=== PATIENT | female | born 1930 | race Caucasian/White ===

== ENCOUNTER 2018-10-15 01:56 | Inpatient (IN) | payer MEDICARE, BC ==
[2018-10-15] MEDS ORDERED: IPRATROPIUM 0.5 MG/2.5 ML NEBU INHALATION STA (02:28)
[2018-10-15] MEDS ORDERED: ALBUTEROL NEBULIZED (CONC) 5 MG, SODIUM CHLORIDE 0.9% NEBULIZ 3 ML INHALATION STA ×2 (02:28)
[2018-10-15] MEDS ORDERED: methylPREDNISolone SOD SUCCI 125 MG/2 ML VIAL IV STA (02:28)
--- NOTE | 2018-10-15 02:31 | ED ---
SOB HPI - General Source: patient, family Mode of arrival: wheelchair Limitations: no limitations <Ama Combs - Last Filed: 10/15/18 02:38> <Miriam Ureña - Last Filed: 10/15/18 05:47> - General Chief Complaint: Shortness of Breath Stated Complaint: cough, wheezing Time Seen by Provider: 10/15/18 02:06 - History of Present Illness Initial Comments: 88-year-old female patient presents to the emergency department this evening for evaluation of shortness of breath, wheezing, and cough. Patient does have history of COPD. She does nebulizer treatments at home and occasionally wears oxygen. Daughter reports that she woke from sleep this evening and seemed to be somewhat disoriented. States that she checked her oxygen saturation at home and was round 88% on room air. States that she usually runs between 95 and 96%. Patient states that she has had a cough, states she does have sputum production. She denies any fever or chills. States that she does feel generally weak. Denies any chest pain, abdominal pain, nausea, or vomiting. Denies any dizziness. Patient denies any recent rash, diarrhea, constipation, back pain, numbness, tingling, dizziness, weakness, hematuria, dysuria, urinary urgency, urinary frequency, headache, visual changes, or any other complaints. (Ama Combs) - Related Data Home Medications Medication Instructions Recorded Confirmed Aspirin [Adult Low Dose Aspirin EC] 81 mg PO DAILY 10/15/18 10/15/18 Cholecalciferol [Vitamin D3 (25 1,000 unit PO DAILY 10/15/18 10/15/18 Mcg = 1000 Iu)] Cyanocobalamin (Vitamin B-12) 1,000 mcg PO DAILY 10/15/18 10/15/18 [Vitamin B-12] FLUoxetine HCL [PROzac] 20 mg PO DAILY 10/15/18 10/15/18 Fluticasone/Salmeterol [Advair 1 inhalation PO BID 10/15/18 10/15/18 250-50 Diskus] Folic Acid 1 mg PO DAILY 10/15/18 10/15/18 Glucosamine/Chondr Bonilla A Sod [Osteo 1 each PO DAILY 10/15/18 10/15/18 Bi-Flex Caplet] Levothyroxine Sodium 100 mcg PO DAILY 10/15/18 10/15/18 Multivit with Calcium,Iron,Min 1 each PO DAILY 10/15/18 10/15/18 [Women's Multivitamin] Omeprazole 40 mg PO DAILY 10/15/18 10/15/18 Simvastatin 40 mg PO DAILY 10/15/18 10/15/18 predniSONE 7.5 mg PO DAILY 10/15/18 10/15/18 Allergies Allergy/AdvReac Type Severity Reaction Status Date / Time naproxen [From Naprosyn] AdvReac Rash/Hives Verified 10/15/18 02:04 Review of Systems ROS Other: All systems not noted in ROS Statement are negative. <Ama Combs - Last Filed: 10/15/18 02:38> ROS Other: All systems not noted in ROS Statement are negative. <Miriam Ureña - Last Filed: 10/15/18 05:47> ROS Statement: Those systems with pertinent positive or pertinent negative responses have been documented in the HPI. 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 Vital signs upon presentation are temperature 99.0F, pulse 118, respirations 20, blood pressure 97/56, pulse ox 90% on room air.) Eye exam: Present: normal appearance, PERRL, EOMI. Absent: scleral icterus, conjunctival injection, periorbital swelling ENT exam: Present: normal exam, normal oropharynx, mucous membranes moist Respiratory exam: Present: wheezes (Expiratory wheezing noted in the posterior lung mustafa), other (Tachypnea). Absent: normal lung sounds bilaterally, respiratory distress, rales, rhonchi, stridor Cardiovascular Exam: Present: normal rhythm, tachycardia, normal heart sounds. Absent: systolic murmur, diastolic murmur, rubs, gallop, clicks GI/Abdominal exam: Present: soft, normal bowel sounds. Absent: distended, tenderness, guarding, rebound, rigid Neurological exam: Present: alert, oriented X3, CN II-XII intact Psychiatric exam: Present: normal affect, normal mood Skin exam: Present: warm, dry, intact, normal color. Absent: rash <Ama Combs - Last Filed: 10/15/18 02:38> Course Vital Signs 10/15/18 10/15/18 10/15/18 01:57 02:16 02:30 Temperature 98.5 F Pulse Rate 118 H 92 Respiratory 20 18 Rate Blood Pressure 97/56 122/65 O2 Sat by Pulse 90 L 88 L 96 Oximetry 10/15/18 10/15/18 10/15/18 03:00 03:05 03:09 Temperature 99.0 F Pulse Rate 86 94 Respiratory 19 Rate Blood Pressure 122/60 O2 Sat by Pulse 96 Oximetry 10/15/18 10/15/18 10/15/18 03:14 03:30 04:00 Temperature Pulse Rate 80 84 90 Respiratory 20 20 Rate Blood Pressure 128/54 O2 Sat by Pulse 99 96 Oximetry 10/15/18 10/15/18 04:30 05:00 Temperature Pulse Rate 87 85 Respiratory 24 20 Rate Blood Pressure 131/58 139/52 O2 Sat by Pulse 98 96 Oximetry Medical Decision Making - EKG Data -: EKG Interpreted by Me <Ama Cobms - Last Filed: 10/15/18 02:38> - Lab Data Result diagrams: 10/15/18 03:00 10/15/18 03:00 <Miriam Ureña - Last Filed: 10/15/18 05:47> - Medical Decision Making Patient care was signed out to me by Ama Combs DIRECTOR [employer] - Patient is an 88-year-old female who presented for difficulty breathing she was noted to be wheezing and received albuterol and steroids. At the time of sign out labs were pending, as resulted with chronic anemia. Family at bedside reported the patien t has chronic anemia her baseline hemoglobin he believes is around 10. The report she's been on steroids due to her anemia in the past. And today with a hemoglobin of 8.8. Patient resting comfortably on supplement oxygen via nasal cannula. At this time I feel the patient warrants admission to the hospital for further treatment of COPD exacerbation. Patient family are agreeable with this. Admission orders were placed. (Miriam Ureña) - Lab Data Lab Results 10/15/18 10/15/18 10/15/18 Range/Units 03:00 03:00 03:00 WBC 6.4 (3.8-10.6) k/uL RBC 3.44 L (3.80-5.40) m/uL Hgb 8.8 L (11.4-16.0) gm/dL Hct 29.8 L (34.0-46.0) % MCV 86.6 (80.0-100.0) fL MCH 25.5 (25.0-35.0) pg MCHC 29.5 L (31.0-37.0) g/dL RDW 16.0 H (11.5-15.5) % Plt Count 271 (150-450) k/uL Neutrophils % 56 % Lymphocytes % 26 % Monocytes % 10 % Eosinophils % 3 % Basophils % 1 % Neutrophils # 3.6 (1.3-7.7) k/uL Lymphocytes # 1.7 (1.0-4.8) k/uL Monocytes # 0.6 (0-1.0) k/uL Eosinophils # 0.2 (0-0.7) k/uL Basophils # 0.1 (0-0.2) k/uL Hypochromasia Moderate Sodium 136 L (137-145) mmol/L Potassium 4.1 (3.5-5.1) mmol/L Chloride 103 (98-107) mmol/L Carbon Dioxide 28 (22-30) mmol/L Anion Gap 5 mmol/L BUN 19 H (7-17) mg/dL Creatinine 0.79 (0.52-1.04) mg/dL Est GFR (CKD-EPI)AfAm 77 (>60 ml/min/1.73 sqM) Est GFR (CKD-EPI)NonAf 67 (>60 ml/min/1.73 sqM) Glucose 86 (74-99) mg/dL Plasma Lactic Acid Jamie 1.4 (0.7-2.0) mmol/L Calcium 8.4 (8.4-10.2) mg/dL Total Bilirubin 0.3 (0.2-1.3) mg/dL AST 35 (14-36) U/L ALT 8 L (9-52) U/L Alkaline Phosphatase 48 (38-126) U/L Total Protein 5.9 L (6.3-8.2) g/dL Albumin 3.1 L (3.5-5.0) g/dL Urine Color Urine Appearance (Clear) Urine pH (5.0-8.0) Ur Specific [place] (1.001-1.035) Urine Protein (Negative) Urine Glucose (UA) (Negative) Urine Ketones (Negative) Urine Blood (Negative) Urine Nitrite (Negative) Urine Bilirubin (Negative) Urine Urobilinogen (<2.0) mg/dL Ur Leukocyte Esterase (Negative) 10/15/18 Range/Units 04:00 WBC (3.8-10.6) k/uL RBC (3.80-5.40) m/uL Hgb (11.4-16.0) gm/dL Hct (34.0-46.0) % MCV (80.0-100.0) fL MCH (25.0-35.0) pg MCHC (31.0-37.0) g/dL RDW (11.5-15.5) % Plt Count (150-450) k/uL Neutrophils % % Lymphocytes % % Monocytes % % Eosinophils % % Basophils % % Neutrophils # (1.3-7.7) k/uL Lymphocytes # (1.0-4.8) k/uL Monocytes # (0-1.0) k/uL Eosinophils # (0-0.7) k/uL Basophils # (0-0.2) k/uL Hypochromasia Sodium (137-145) mmol/L Potassium (3.5-5.1) mmol/L Chloride (98-107) mmol/L Carbon Dioxide (22-30) mmol/L Anion Gap mmol/L BUN (7-17) mg/dL Creatinine (0.52-1.04) mg/dL Est GFR (CKD-EPI)AfAm (>60 ml/min/1.73 sqM) Est GFR (CKD-EPI)NonAf (>60 ml/min/1.73 sqM) Glucose (74-99) mg/dL Plasma Lactic Acid Jamie (0.7-2.0) mmol/L Calcium (8.4-10.2) mg/dL Total Bilirubin (0.2-1.3) mg/dL AST (14-36) U/L ALT (9-52) U/L Alkaline Phosphatase (38-126) U/L Total Protein (6.3-8.2) g/dL Albumin (3.5-5.0) g/dL Urine Color Yellow Urine Appearance Clear (Clear) Urine pH 6.5 (5.0-8.0) Ur Specific [place] 1.012 (1.001-1.035) Urine Protein Negative (Negative) Urine Glucose (UA) Negative (Negative) Urine Ketones Negative (Negative) Urine Blood Negative (Negative) Urine Nitrite Negative (Negative) Urine Bilirubin Negative (Negative) Urine Urobilinogen <2.0 (<2.0) mg/dL Ur Leukocyte Esterase Negative (Negative) - EKG Data EKG Comments: EKG obtained at 0212 shows sinus tachycardia with occasional PVCs. Ventricular rate is 106, DE interval 124, QRS duration 80, QT 346, QTc 459. No evidence of ST elevation or depression. (Ama Combs) Disposition <Ama Combs - Last Filed: 10/15/18 02:38> <Miriam Ureña - Last Filed: 10/15/18 05:47> Clinical Impression: COPD exacerbation, Chronic anemia Disposition: ADMITTED IP TO THIS HOSP Condition: Stable Referrals: None,Stated [Primary Care Provider] - 1-2 days
--- NOTE | 2018-10-15 03:04 | XR ---
EXAM: XR Chest, 2 Views CLINICAL HISTORY: ITS.REASON XR Reason: Fever TECHNIQUE: Frontal and lateral views of the chest. COMPARISON: No relevant prior studies available. FINDINGS: Lungs: Unremarkable. No consolidation. Pleural space: Unremarkable. No pneumothorax. Heart: No suspicious enlargement. Mediastinum: Unremarkable. Bones/joints: No acute fracture. IMPRESSION: No acute findings.
[2018-10-15] MEDS: SODIUM CHLORIDE 0.9% 500 ML 500 ML IV SCH (03:12)
[2018-10-15 03:47] LABS: Basophils # (A) 0.1 k/uL (0-0.2); Basophils % (A) 1 %; Eosinophils # (A) 0.2 k/uL (0-0.7); Eosinophils % (A) 3 %; HCT 29.8 % (34.0-46.0); HGB 8.8 gm/dL (11.4-16.0); Hypochromasia Moderate; Lymphocytes # (A) 1.7 k/uL (1.0-4.8); Lymphocytes % (A) 26 %; MCH 25.5 pg (25.0-35.0); MCHC 29.5 g/dL (31.0-37.0); MCV 86.6 fL (80.0-100.0); Mean Platelet Volume 6.8; Monocytes # (A) 0.6 k/uL (0-1.0); Monocytes % (A) 10 %; Neutrophils # (A) 3.6 k/uL (1.3-7.7); Neutrophils % (A) 56 %; Platelet Count 271 k/uL (150-450); RBC 3.44 m/uL (3.80-5.40); WBC 6.4 k/uL (3.8-10.6)
[2018-10-15 03:55] LABS: Albumin 3.1 g/dL (3.5-5.0); Calcium 8.4 mg/dL (8.4-10.2); Total Bilirubin 0.3 mg/dL (0.2-1.3); Total Protein 5.9 g/dL (6.3-8.2)
[2018-10-15 04:02] LABS: INR 0.9 (<1.2); Prothrombin Time 9.8 sec (9.0-12.0)
[2018-10-15 04:11] LABS: Appearance,Urine Clear (Clear); Bilirubin,Urine Negative (Negative); Blood,Urine Negative (Negative); Color,Urine Yellow; Glucose,Urine (UA) Negative (Negative); Ketones,Urine Negative (Negative); Leukocyte Esterase,Urine Negative (Negative); Nitrite,Urine Negative (Negative); PH, Urine 6.5 (5.0-8.0); Protein,Urine Negative (Negative); Specific Gravity,Urine 1.012 (1.001-1.035); Urobilinogen,Urine <2.0 mg/dL (<2.0)
[2018-10-15 04:22] LABS: Potassium 4.1 mmol/L (3.5-5.1)
[2018-10-15 06:57] LABS: Partial Thromboplastin Time 20.9 sec (22.0-30.0)
[2018-10-15] MEDS: predniSONE 20 MG TAB PO SCH (11:24)
[2018-10-15] MEDS: IPRATROPIUM-ALBUTEROL 3 ML NEB INHALATION PRN (11:40)
--- NOTE | 2018-10-15 13:29 | P.HPIM ---
History of Present Illness A 8-year-old pleasant female came in with complains of shortness of breath and wheezing cough without any significant sputum production patient chest x-ray did not show pneumonia patient doesn't use any oxygen at home. Patient is quite weak and will need physical therapy patient was started on systemic steroids in the form of oral prednisone and the inhalational steroids. Patient was started on GI prophylaxis and DVT prophylaxis. is wheezing on exam doesn't have hearing problems because of which it's hard to obtain history from her. Patient also denies any fever chills Review of Systems REVIEW OF SYSTEMS: CONSTITUTIONAL: No fever, no malaise, no fatigue. HEENT: No recent visual problems or hearing problems. Denied any sore throat. CARDIOVASCULAR: No chest pain, orthopnea, PND, no palpitations, no syncope. PULMONARY: no hemoptysis. GASTROINTESTINAL: No diarrhea, no nausea, no vomiting, no abdominal pain. NEUROLOGICAL: No headaches, no weakness, no numbness. HEMATOLOGICAL: Denies any bleeding or petechiae. GENITOURINARY: Denies any burning micturition, frequency, or urgency. MUSCULOSKELETAL/RHEUMATOLOGICAL: Denies any joint pain, swelling, or any muscle pain. ENDOCRINE: Denies any polyuria or polydipsia. The rest of the 14-point review of systems is negative. 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, Past Psychological History: No Psychological Hx Reported Smoking Status: Former smoker Past Alcohol Use History: None Reported Past Drug Use History: None Reported Medications and Allergies Home Medications Medication Instructions Recorded Confirmed Type Aspirin [Adult Low Dose Aspirin EC] 81 mg PO DAILY 10/15/18 10/15/18 History Cholecalciferol [Vitamin D3 (25 1,000 unit PO DAILY 10/15/18 10/15/18 History Mcg = 1000 Iu)] Cyanocobalamin (Vitamin B-12) 1,000 mcg PO DAILY 10/15/18 10/15/18 History [Vitamin B-12] FLUoxetine HCL [PROzac] 20 mg PO DAILY 10/15/18 10/15/18 History Fluticasone/Salmeterol [Advair 1 inhalation PO BID 10/15/18 10/15/18 History 250-50 Diskus] Folic Acid 1 mg PO DAILY 10/15/18 10/15/18 History Glucosamine/Chondr Bonilla A Sod [Osteo 1 each PO DAILY 10/15/18 10/15/18 History Bi-Flex Caplet] Levothyroxine Sodium 100 mcg PO DAILY 10/15/18 10/15/18 History Multivit with Calcium,Iron,Min 1 each PO DAILY 10/15/18 10/15/18 History [Women's Multivitamin] Omeprazole 40 mg PO DAILY 10/15/18 10/15/18 History Simvastatin 40 mg PO DAILY 10/15/18 10/15/18 History Vit C/E/Zn/Coppr/Lutein/Zeaxan 1 cap PO BID 10/15/18 10/15/18 History [Preservision Areds 2 Softgel] predniSONE 7.5 mg PO DAILY 10/15/18 10/15/18 History Allergies Allergy/AdvReac Type Severity Reaction Status Date / Time naproxen [From Naprosyn] AdvReac Rash/Hives Verified 10/15/18 02:04 Physical Exam Vitals: Vital Signs Temp Pulse Pulse Resp BP BP Pulse Ox 10/15/18 11:49 88 10/15/18 11:40 92 10/15/18 11:28 24 10/15/18 06:30 97.8 F 95 92 18 134/64 132/70 95 10/15/18 06:24 98.6 F 10/15/18 06:00 92 17 126/80 94 L 10/15/18 05:30 87 22 137/52 94 L 10/15/18 05:00 85 20 139/52 96 10/15/18 04:30 87 24 131/58 98 10/15/18 04:00 90 20 128/54 96 10/15/18 03:30 84 20 99 10/15/18 03:14 80 10/15/18 03:09 99.0 F 10/15/18 03:05 94 10/15/18 03:00 86 19 122/60 96 10/15/18 02:30 92 18 122/65 96 10/15/18 02:16 88 L 10/15/18 01:57 98.5 F 118 H 20 97/56 90 L Intake and Output 10/14/18 10/15/18 10/15/18 22:59 06:59 14:59 Other: Voiding Method Toilet Diaper Incontinent # Voids 1 Weight 76.204 kg PHYSICAL EXAMINATION: GENERAL: The patient is alert and oriented x3, not in any acute distress. And built cachectic female HEENT pupils reacting to light. EOMI. No scleral icterus. No conjunctival pallor. Normocephalic, atraumatic. No pharyngeal erythema. No thyromegaly. CARDIOVASCULAR: S1 and S2 present. No murmurs, rubs, or gallops. PULMONARY: Decreased air entry with a expiratory wheezing on exam ABDOMEN: Soft, nontender, nondistended, normoactive bowel sounds. No palpable organomegaly. MUSCULOSKELETAL: No joint swelling or deformity. EXTREMITIES: No cyanosis, clubbing, or pedal edema. NEUROLOGICAL: Gross neurological examination did not reveal any focal deficits. SKIN: No rashes. Results CBC & Chem 7: 10/15/18 03:00 10/15/18 03:00 Labs: Abnormal Lab Results - Last 24 Hours (Table) 10/15/18 10/15/18 10/15/18 Range/Units 03:00 03:00 03:00 RBC 3.44 L (3.80-5.40) m/uL Hgb 8.8 L (11.4-16.0) gm/dL Hct 29.8 L (34.0-46.0) % MCHC 29.5 L (31.0-37.0) g/dL RDW 16.0 H (11.5-15.5) % APTT 20.9 L (22.0-30.0) sec Sodium 136 L (137-145) mmol/L BUN 19 H (7-17) mg/dL ALT 8 L (9-52) U/L Total Protein 5.9 L (6.3-8.2) g/dL Albumin 3.1 L (3.5-5.0) g/dL Microbiology - Last 24 Hours (Table) 10/15/18 04:00 Urine Culture - Preliminary Urine,Voided Thrombosis Risk Factor Assmnt - Choose All That Apply Each Factor Represents 1 point: Abnormal pulmonary function (COPD) Each Risk Factor Represents 3 Points: Age 75 years or older Thrombosis Risk Factor Assessment Total Risk Factor Score: 4 Thrombosis Risk Factor Assessment Level: Moderate Risk Assessment and Plan Plan: COPD exacerbation: Patient will need to be in patient continues systems steroids inhalational treatments. Patient quit smoking many years ago - generalized weakness and deconditioning for which we'll obtain PT and OT consultation -Hyperlipidemia -Hypothyroidism Patient will need pharmacologic GI and DVT prophylaxis For above-mentioned chronic medical problems emphysema and appropriate home medications.
[2018-10-15] MEDS: IPRATROPIUM-ALBUTEROL 3 ML NEB INHALATION SCH ×2 (15:39→20:37)
--- NOTE | 2018-10-15 16:05 | P.CNPUL ---
History of Present Illness Consult date: 10/15/18 Reason for consult: dyspnea, cough, COPD Chief complaint: Shortness of breath History of present illness: 88-year-old female who was seen evaluated examined observation, patient was admitted with the increased shortness of breath and low oxygen saturation she presented into emergency department with cough wheezing and low oxygen saturation are 88%, Patient does have history of COPD. She does nebulizer treatments at home and occasionally wears oxygen. Daughter reports that she woke from sleep this evening and seemed to be somewhat disoriented. States that she checked her oxygen saturation at home and was round 88% on room air. States that she usually runs between 95 and 96%. Patient states that she has had a cough, states she does have sputum production. She denies any fever or chills. States that she does feel generally weak. Denies any chest pain, abdominal pain, nausea, or vomiting. Denies any dizziness. Patient denies any recent rash, diarrhea, constipation, back pain, numbness, tingling, dizziness, weakness, hematuria, dysuria, urinary urgency, urinary frequency, headache, visual changes, or any other complaints. 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, Past Psychological History: No Psychological Hx Reported Smoking Status: Former smoker Past Alcohol Use History: None Reported Past Drug Use History: None Reported Medications and Allergies Home Medications Medication Instructions Recorded Confirmed Type Aspirin [Adult Low Dose Aspirin EC] 81 mg PO DAILY 10/15/18 10/15/18 History Cholecalciferol [Vitamin D3 (25 1,000 unit PO DAILY 10/15/18 10/15/18 History Mcg = 1000 Iu)] Cyanocobalamin (Vitamin B-12) 1,000 mcg PO DAILY 10/15/18 10/15/18 History [Vitamin B-12] FLUoxetine HCL [PROzac] 20 mg PO DAILY 10/15/18 10/15/18 History Fluticasone/Salmeterol [Advair 1 inhalation PO BID 10/15/18 10/15/18 History 250-50 Diskus] Folic Acid 1 mg PO DAILY 10/15/18 10/15/18 History Glucosamine/Chondr Bonilla A Sod [Osteo 1 each PO DAILY 10/15/18 10/15/18 History Bi-Flex Caplet] Levothyroxine Sodium 100 mcg PO DAILY 10/15/18 10/15/18 History Multivit with Calcium,Iron,Min 1 each PO DAILY 10/15/18 10/15/18 History [Women's Multivitamin] Omeprazole 40 mg PO DAILY 10/15/18 10/15/18 History Simvastatin 40 mg PO DAILY 10/15/18 10/15/18 History Vit C/E/Zn/Coppr/Lutein/Zeaxan 1 cap PO BID 10/15/18 10/15/18 History [Preservision Areds 2 Softgel] predniSONE 7.5 mg PO DAILY 10/15/18 10/15/18 History Allergies Allergy/AdvReac Type Severity Reaction Status Date / Time naproxen [From Naprosyn] AdvReac Rash/Hives Verified 10/15/18 02:04 Physical Exam Vitals: Vital Signs Temp Pulse Pulse Resp BP BP Pulse Ox 10/15/18 15:50 85 10/15/18 15:39 89 10/15/18 11:49 88 10/15/18 11:40 92 10/15/18 11:28 24 10/15/18 06:30 97.8 F 95 92 18 134/64 132/70 95 10/15/18 06:24 98.6 F 10/15/18 06:00 92 17 126/80 94 L 10/15/18 05:30 87 22 137/52 94 L 10/15/18 05:00 85 20 139/52 96 10/15/18 04:30 87 24 131/58 98 10/15/18 04:00 90 20 128/54 96 10/15/18 03:30 84 20 99 10/15/18 03:14 80 10/15/18 03:09 99.0 F 10/15/18 03:05 94 10/15/18 03:00 86 19 122/60 96 10/15/18 02:30 92 18 122/65 96 10/15/18 02:16 88 L 10/15/18 01:57 98.5 F 118 H 20 97/56 90 L Intake and Output 10/15/18 10/15/18 10/15/18 06:59 14:59 22:59 Other: Voiding Method Toilet Diaper Incontinent # Voids 1 Weight 76.204 kg - Constitutional General appearance: average body habitus, disheveled, mild distress - EENT Eyes: EOMI, PERRLA, normal appearance ENT: normal oropharynx - Neck Neck: normal ROM Carotids: bilateral: upstroke normal Thyroid: bilateral: normal size - Respiratory Respiratory: bilateral: wheezing (During fours expiration), negative: CTA, diminished, dullness, rales, rhonchi, prolonged expiration, prolonged inspiration - Cardiovascular Rhythm: regular Heart sounds: normal: S1, S2 - Gastrointestinal General gastrointestinal: normal bowel sounds - Neurologic Neurologic: CNII-XII intact - Musculoskeletal Musculoskeletal: gait normal, generalized weakness, strength equal bilaterally - Psychiatric Psychiatric: A&O x's 3, appropriate affect, intact judgment & insight Results - Laboratory Findings CBC and BMP: 10/15/18 03:00 10/15/18 03:00 PT/INR, D-dimer PT 9.8 sec (9.0-12.0) 10/15/18 03:00 INR 0.9 (<1.2) 10/15/18 03:00 Abnormal lab findings: Abnormal Labs 10/15/18 10/15/18 10/15/18 03:00 03:00 03:00 RBC 3.44 L Hgb 8.8 L Hct 29.8 L MCHC 29.5 L RDW 16.0 H APTT 20.9 L Sodium 136 L BUN 19 H ALT 8 L Total Protein 5.9 L Albumin 3.1 L - Diagnostic Findings Chest x-ray: report reviewed, image reviewed (X-ray within normal limit) Assessment and Plan Assessment: Acute COPD exacerbation Acute hypoxic respiratory failure related to above Dyslipidemia Hypothyroidism Plan: Continue breathing treatment Bronchodilator Continue home medications X-ray reviewed Recommendations pending plan of care as per clinical response of the patient Time with Patient: Greater than 30
[2018-10-15] MEDS: HEPARIN SODIUM,PORCINE 5,000 UNIT/ML 1 ML VIAL SQ SCH (20:27)
[2018-10-15] MEDS: SYMBICORT 80-4.5 MCG INHALER INHALATION SCH (20:38)
[2018-10-16] MEDS: LEVOTHYROXINE 100 MCG TAB PO SCH (06:07)
[2018-10-16] MEDS: HEPARIN SODIUM,PORCINE 5,000 UNIT/ML 1 ML VIAL SQ SCH ×2 (08:21→20:59)
[2018-10-16] MEDS: ASPIRIN 81 MG PO SCH (08:21)
[2018-10-16] MEDS: FLUoxetine HCL 20 MG CAP PO SCH (08:21)
[2018-10-16] MEDS: predniSONE 20 MG TAB PO SCH (08:21)
[2018-10-16] MEDS: ATORVASTATIN 20 MG TAB PO SCH (08:21)
[2018-10-16] MEDS: PANTOPRAZOLE 40 MG TABLET PO SCH (08:21)
[2018-10-16] MEDS: SYMBICORT 80-4.5 MCG INHALER INHALATION SCH ×2 (08:23→19:21)
[2018-10-16] MEDS: IPRATROPIUM-ALBUTEROL 3 ML NEB INHALATION SCH ×4 (08:23→19:21)
--- NOTE | 2018-10-16 08:50 | P.PN ---
Subjective Progress Note Date: 10/16/18 Principal diagnosis: Acute COPD exacerbation, hypothyroidism, shortness of breath, cough, dyslipidemia, 10/16/2018, patient seen and evaluated examined during the rounds still have a dry cough and shortness of breath intermittent wheezing is present patient is getting breathing treatment slightly improved compared to yesterday 88-year-old female who was seen evaluated examined observation, patient was admitted with the increased shortness of breath and low oxygen saturation she presented into emergency department with cough wheezing and low oxygen saturation are 88%, Patient does have history of COPD. She does nebulizer treatments at home and occasionally wears oxygen. Daughter reports that she woke from sleep this evening and seemed to be somewhat disoriented. States that she checked her oxygen saturation at home and was round 88% on room air. States that she usually runs between 95 and 96%. Patient states that she has had a cough, states she does have sputum production. She denies any fever or chills. States that she does feel generally weak. Denies any chest pain, abdominal pain, nausea, or vomiting. Denies any dizziness. Patient denies any recent rash, diarrhea, constipation, back pain, numbness, tingling, dizziness, weakness, hematuria, dysuria, urinary urgency, urinary frequency, headache, visual changes, or any other complaints. Objective - Vital Signs Vital signs: Vital Signs Temp 98.3 F 10/16/18 05:19 Pulse 104 H 10/16/18 08:37 Resp 18 10/16/18 05:19 BP 130/73 10/16/18 05:19 Pulse Ox 95 10/16/18 08:26 Intake & Output 10/15/18 10/16/18 10/16/18 18:59 06:59 18:59 Intake Total 200 Balance 200 Weight 75 kg Intake: Oral 200 Other: Voiding Method Toilet Toilet Diaper Diaper Incontinent Incontinent # Voids 2 - Exam - Constitutional General appearance: average body habitus, disheveled, mild distress - EENT Eyes: EOMI, PERRLA, normal appearance ENT: normal oropharynx - Neck Neck: normal ROM Carotids: bilateral: upstroke normal Thyroid: bilateral: normal size - Respiratory Respiratory: bilateral: wheezing (During fours expiration), negative: CTA, diminished, dullness, rales, rhonchi, prolonged expiration, prolonged inspira tion - Cardiovascular Rhythm: regular Heart sounds: normal: S1, S2 - Gastrointestinal General gastrointestinal: normal bowel sounds - Neurologic Neurologic: CNII-XII intact - Musculoskeletal Musculoskeletal: gait normal, generalized weakness, strength equal bilaterally - Psychiatric Psychiatric: A&O x's 3, appropriate affect, intact judgment & insight - Labs CBC & Chem 7: 10/15/18 03:00 10/15/18 03:00 Labs: Microbiology - Last 24 Hours (Table) 10/15/18 03:00 Blood Culture - Preliminary Blood No Growth after 24 hours 10/15/18 04:00 Urine Culture - Preliminary Urine,Voided Assessment and Plan Assessment: Acute COPD exacerbation Acute hypoxic respiratory failure related to above Dyslipidemia Hypothyroidism Plan: Continue breathing treatment Bronchodilator Continue home medications X-ray reviewed Continue steroids Recommendations pending plan of care as per clinical response of the patient Time with Patient: Greater than 30
--- NOTE | 2018-10-16 14:28 | P.PN ---
Subjective Patient admitted for COPD exacerbation still wheezing but much better compared to yesterday. Constitutional: Denied any fatigue denied any fever. Cardio vascular: denied any chest pain, palpitations Gastrointestinal denied any nausea vomiting Pulmonary: Chest was with improved Neurologic denied any new focal deficits All inpatient medications were reviewed and appropriate changes in these medications as dictated in the interval history and assessment and plan. Objective - Vital Signs Vital signs: Vital Signs Temp 98.2 F 10/16/18 11:46 Pulse 92 10/16/18 12:05 Resp 18 10/16/18 11:46 BP 127/54 10/16/18 11:46 Pulse Ox 95 10/16/18 11:46 Intake & Output 10/15/18 10/16/18 10/16/18 18:59 06:59 18:59 Intake Total 200 Balance 200 Weight 75 kg 75 kg Intake: Oral 200 Other: Voiding Method Toilet Toilet Toilet Diaper Diaper Diaper Incontinent Incontinent Incontinent # Voids 2 - Exam PHYSICAL EXAMINATION: GENERAL: The patient is alert and oriented x3, not in any acute distress. And built cachectic female HEENT pupils reacting to light. EOMI. No scleral icterus. No conjunctival pallor. Normocephalic, atraumatic. No pharyngeal erythema. No thyromegaly. CARDIOVASCULAR: S1 and S2 present. No murmurs, rubs, or gallops. PULMONARY: Decreased air entry with a expiratory wheezing on exam, wheezing although improved compared to yesterday. ABDOMEN: Soft, nontender, nondistended, normoactive bowel sounds. No palpable organomegaly. MUSCULOSKELETAL: No joint swelling or deformity. EXTREMITIES: No cyanosis, clubbing, or pedal edema. NEUROLOGICAL: Gross neurological examination did not reveal any focal deficits. SKIN: No rashes. - Labs CBC & Chem 7: 10/15/18 03:00 10/15/18 03:00 Labs: Microbiology - Last 24 Hours (Table) 10/15/18 03:00 Blood Culture - Preliminary Blood No Growth after 24 hours 10/15/18 04:00 Urine Culture - Preliminary Urine,Voided Assessment and Plan Plan: COPD exacerbation: will be continued on oral steroids inhalational treatments. Patient quit smoking many years ago - generalized weakness and deconditioning for which we'll obtain PT and OT consultation patient will not require any subacute rehabilitation -Hyperlipidemia -Hypothyroidism Patient will need pharmacologic GI and DVT prophylaxis For above-mentioned chronic medical problems emphysema and appropriate home medications.
[2018-10-17] MEDS: LEVOTHYROXINE 100 MCG TAB PO SCH (05:57)
[2018-10-17] MEDS: FLUoxetine HCL 20 MG CAP PO SCH (08:26)
[2018-10-17] MEDS: HEPARIN SODIUM,PORCINE 5,000 UNIT/ML 1 ML VIAL SQ SCH ×2 (08:26→20:14)
[2018-10-17] MEDS: PANTOPRAZOLE 40 MG TABLET PO SCH (08:26)
[2018-10-17] MEDS: ASPIRIN 81 MG PO SCH (08:26)
[2018-10-17] MEDS: ATORVASTATIN 20 MG TAB PO SCH (08:26)
[2018-10-17] MEDS: SYMBICORT 80-4.5 MCG INHALER INHALATION SCH ×2 (09:37→20:06)
[2018-10-17] MEDS: IPRATROPIUM-ALBUTEROL 3 ML NEB INHALATION SCH ×4 (09:38→20:06)
--- NOTE | 2018-10-17 12:37 | P.PN ---
Subjective Progress Note Date: 10/17/18 Principal diagnosis: Acute COPD exacerbation, hypothyroidism, shortness of breath, cough, dyslipidemia, 10/17/2018, patient seen and evaluated examined during the rounds is still c ongested and short of breath she is producing some phlegm now which is dark in color she cannot give exact details and she cannot sleep properly, she is wheezing intermittently care plan discussed with the daughter present at bedside 10/16/2018, patient seen and evaluated examined during the rounds still have a dry cough and shortness of breath intermittent wheezing is present patient is getting breathing treatment slightly improved compared to yesterday 88-year-old female who was seen evaluated examined observation, patient was admitted with the increased shortness of breath and low oxygen saturation she presented into emergency department with cough wheezing and low oxygen saturation are 88%, Patient does have history of COPD. She does nebulizer treatments at home and occasionally wears oxygen. Daughter reports that she woke from sleep this evening and seemed to be somewhat disoriented. States that she checked her oxygen saturation at home and was round 88% on room air. States that she usually runs between 95 and 96%. Patient states that she has had a cough, states she does have sputum production. She denies any fever or chills. States that she does feel generally weak. Denies any chest pain, abdominal pain, nausea, or vomiting. Denies any dizziness. Patient denies any recent rash, diarrhea, constipation, back pain, numbness, tingling, dizziness, weakness, hematuria, dysuria, urinary urgency, urinary frequency, headache, visual changes, or any other complaints. Objective - Vital Signs Vital signs: Vital Signs Temp 97.8 F 10/17/18 12:01 Pulse 86 10/17/18 12:15 Resp 16 10/17/18 12:01 BP 123/64 10/17/18 12:01 Pulse Ox 94 L 10/17/18 12:01 Intake & Output 10/16/18 10/17/18 10/17/18 18:59 06:59 18:59 Intake Total 590 Balance 590 Weight 75 kg 75.1 kg Intake: Oral 590 Other: Voiding Method Toilet Toilet Toilet Diaper Diaper Diaper Incontinent Incontinent Incontinent # Voids 3 3 1 # Bowel Movements 1 1 - Exam - Constitutional General appearance: average body habitus, disheveled, mild distress - EENT Eyes: EOMI, PERRLA, normal appearance ENT: normal oropharynx - Neck Neck: normal ROM Carotids: bilateral: upstroke normal Thyroid: bilateral: normal size - Respiratory Respiratory: bilateral: wheezing (During fours expiration), negative: CTA, diminished, dullness, rales, rhonchi, prolonged expiration, prolonged inspiration - Cardiovascular Rhythm: regular Heart sounds: normal: S1, S2 - Gastrointestinal General gastrointestinal: normal bowel sounds - Neurologic Neurologic: CNII-XII intact - Musculoskeletal Musculoskeletal: gait normal, generalized weakness, strength equal bilaterally - Psychiatric Psychiatric: A&O x's 3, appropriate affect, intact judgment & insight - Labs CBC & Chem 7: 10/15/18 03:00 10/15/18 03:00 Labs: Microbiology - Last 24 Hours (Table) 10/15/18 03:00 Blood Culture - Preliminary Blood No Growth after 48 hours 10/15/18 04:00 Urine Culture - Final Urine,Voided Assessment and Plan Assessment: Acute COPD exacerbation Tracheobronchitis purulent in nature Acute hypoxic respiratory failure related to above Dyslipidemia Hypothyroidism Plan: Continue breathing treatment Bronchodilator Continue home medications We'll start patient on IV steroids and antibiotics and repeat x-ray Admit X-ray reviewed Recommendations pending plan of care as per clinical response of the patient Time with Patient: Greater than 30
[2018-10-17] MEDS: methylPREDNISolone SOD SUCCI 40 MG/ML 1 ML VIAL IV SCH ×2 (14:38→20:13)
[2018-10-17] MEDS: DOXYCYCLINE 100 MG CAP PO SCH ×2 (14:38→20:13)
--- NOTE | 2018-10-17 14:45 | P.PN ---
Subjective Patient admitted for COPD exacerbation still wheezing but much better compared to yesterday. 10/17/2018 Patient was switched to IV steroids with pulmonology patient is saturating at 83% upon ablation. Constitutional: Denied any fatigue denied any fever. Cardio vascular: denied any chest pain, palpitations Gastrointestinal denied any nausea vomiting Pulmonary: Chest was with improved Neurologic denied any new focal deficits All inpatient medications were reviewed and appropriate changes in these medications as dictated in the interval history and assessment and plan. Objective - Vital Signs Vital signs: Vital Signs Temp 97.8 F 10/17/18 12:01 Pulse 86 10/17/18 12:15 Resp 16 10/17/18 12:01 BP 123/64 10/17/18 12:01 Pulse Ox 94 L 10/17/18 12:01 Intake & Output 10/16/18 10/17/18 10/17/18 18:59 06:59 18:59 Intake Total 590 Balance 590 Weight 75 kg 75.1 kg Intake: Oral 590 Other: Voiding Method Toilet Toilet Toilet Diaper Diaper Diaper Incontinent Incontinent Incontinent # Voids 3 3 1 # Bowel Movements 1 1 - Exam PHYSICAL EXAMINATION: GENERAL: The patient is alert and oriented x3, not in any acute distress. And built cachectic female HEENT pupils reacting to light. EOMI. No scleral icterus. No conjunctival pallor. Normocephalic, atraumatic. No pharyngeal erythema. No thyromegaly. CARDIOVASCULAR: S1 and S2 present. No murmurs, rubs, or gallops. PULMONARY: No wheezing today but does have rhonchus breath sounds bilaterally appears to have tracheobronchitis ABDOMEN: Soft, nontender, nondistended, normoactive bowel sounds. No palpable organomegaly. MUSCULOSKELETAL: No joint swelling or deformity. EXTREMITIES: No cyanosis, clubbing, or pedal edema. NEUROLOGICAL: Gross neurological examination did not reveal any focal deficits. SKIN: No rashes. - Labs CBC & Chem 7: 10/15/18 03:00 10/15/18 03:00 Labs: Microbiology - Last 24 Hours (Table) 10/15/18 03:00 Blood Culture - Preliminary Blood No Growth after 48 hours 10/15/18 04:00 Urine Culture - Final Urine,Voided Assessment and Plan Plan: COPD exacerbation: Patient will be continued on systemic steroids, inhalational treatments. Patient quit smoking many years ago, patient was started on oxygen and IV steroids by pulmonology - generalized weakness and deconditioning for which we'll obtain PT and OT consultation patient will not require any subacute rehabilitation -Hyperlipidemia -Hypothyroidism Patient will need pharmacologic GI and DVT prophylaxis For above-mentioned chronic medical problems emphysema and appropriate home medications.
[2018-10-18] MEDS: IPRATROPIUM-ALBUTEROL 3 ML NEB INHALATION PRN (03:27)
[2018-10-18] MEDS: LEVOTHYROXINE 100 MCG TAB PO SCH (06:20)
[2018-10-18] MEDS: IPRATROPIUM-ALBUTEROL 3 ML NEB INHALATION SCH ×4 (07:18→21:08)
[2018-10-18] MEDS: SYMBICORT 80-4.5 MCG INHALER INHALATION SCH ×2 (07:18→21:08)
[2018-10-18] MEDS: ATORVASTATIN 20 MG TAB PO SCH (08:32)
[2018-10-18] MEDS: FLUoxetine HCL 20 MG CAP PO SCH (08:32)
[2018-10-18] MEDS: methylPREDNISolone SOD SUCCI 40 MG/ML 1 ML VIAL IV SCH ×2 (08:32→20:40)
[2018-10-18] MEDS: DOXYCYCLINE 100 MG CAP PO SCH ×2 (08:32→20:40)
[2018-10-18] MEDS: ASPIRIN 81 MG PO SCH (08:32)
[2018-10-18] MEDS: PANTOPRAZOLE 40 MG TABLET PO SCH (08:32)
[2018-10-18] MEDS: HEPARIN SODIUM,PORCINE 5,000 UNIT/ML 1 ML VIAL SQ SCH ×2 (08:33→20:40)
--- NOTE | 2018-10-18 09:05 | XR ---
EXAMINATION TYPE: XR chest 1V DATE OF EXAM: 10/18/2018 HISTORY: pneumonia. REFERENCE: Previous study dated 10/15/2018. FINDINGS: There is apparent elevation of the right hemidiaphragm. 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 Heart size is obscured. There is some left basilar airspace disease. There is blunting of the left CP angle. IMPRESSION: LEFT BASILAR AIRSPACE DISEASE WITH A CONCOMITANT EFFUSION.
--- NOTE | 2018-10-18 11:28 | P.PN ---
Subjective Progress Note Date: 10/18/18 Principal diagnosis: Acute COPD exacerbation, hypothyroidism, shortness of breath, cough, dyslipidemia, 10/18/2018, patient seen and evaluated examined during the rounds breathing is still harsh with bilateral wheezing cough and congestion is present slightly better than yesterday patient has been placed on IV steroids breathing treatment antibiotics 10/17/2018, patient seen and evaluated examined during the rounds is still congested and short of breath she is producing some phlegm now which is dark in color she cannot give exact details and she cannot sleep properly, she is wheezing intermittently care plan discussed with the daughter present at bedside 10/16/2018, patient seen and evaluated examined during the rounds still have a dry cough and shortness of breath intermittent wheezing is present patient is getting breathing treatment slightly improved compared to yesterday 88-year-old female who was seen evaluated examined observation, patient was admitted with the increased shortness of breath and low oxygen saturation she presented into emergency department with cough wheezing and low oxygen saturation are 88%, Patient does have history of COPD. She does nebulizer treatments at home and occasionally wears oxygen. Daughter reports that she woke from sleep this evening and seemed to be somewhat disoriented. States that she checked her oxygen saturation at home and was round 88% on room air. States that she usually runs between 95 and 96%. Patient states that she has had a cough, states she does have sputum production. She denies any fever or chills. States that she does feel generally weak. Denies any chest pain, abdominal pain, nausea, or vomiting. Denies any dizziness. Patient denies any recent rash, diarrhea, constipation, back pain, numbness, tingling, dizziness, weakness, hematuria, dysuria, urinary urgency, urinary frequency, headache, visual changes, or any other complaints. Objective - Vital Signs Vital signs: Vital Signs Temp 97.9 F 10/18/18 05:24 Pulse 102 H 10/18/18 07:32 Resp 16 10/18/18 05:24 BP 121/72 10/18/18 05:24 Pulse Ox 92 L 10/18/18 05:24 Intake & Output 10/17/18 10/18/18 10/18/18 18:59 06:59 18:59 Intake Total 590 Balance 590 Weight 74.3 kg Intake: Oral 590 Other: Voiding Method Toilet Toilet Toilet Diaper Diaper Diaper Incontinent Incontinent Incontinent # Voids 0 2 # Bowel Movements 1 - Exam - Constitutional General appearance: average body habitus, disheveled, mild distress - EENT Eyes: EOMI, PERRLA, normal appearance ENT: normal oropharynx - Neck Neck: normal ROM Carotids: bilateral: upstroke normal Thyroid: bilateral: normal size - Respiratory Respiratory: bilateral: wheezing (During fours expiration), negative: CTA, diminished, dullness, rales, rhonchi, prolonged expiration, prolonged inspiration - Cardiovascular Rhythm: regular Heart sounds: normal: S1, S2 - Gastrointestinal General gastrointestinal: normal bowel sounds - Neurologic Neurologic: CNII-XII intact - Musculoskeletal Musculoskeletal: gait normal, generalized weakness, strength equal bilaterally - Psychiatric Psychiatric: A&O x's 3, appropriate affect, intact judgment & insight - Labs CBC & Chem 7: 10/15/18 03:00 10/15/18 03:00 Labs: Microbiology - Last 24 Hours (Table) 10/15/18 03:00 Blood Culture - Preliminary Blood No Growth after 72 hours Assessment and Plan Assessment: Acute COPD exacerbation Tracheobronchitis purulent in nature Acute hypoxic respiratory failure related to above Dyslipidemia Hypothyroidism Plan: Continue breathing treatment Bronchodilator Continue home medications Continue on IV steroids and antibiotics and repeat x-ray Admit X-ray reviewed Recommendations pending plan of care as per clinical response of the patient
--- NOTE | 2018-10-18 15:47 | P.PN ---
Subjective Patient admitted for COPD exacerbation still wheezing but much better compared to yesterday. 10/17/2018 Patient was switched to IV steroids with pulmonology patient is saturating at 83% upon ambulation 10/18/2018 Patient was pretty status improved her wheezing improved today. Constitutional: Denied any fatigue denied any fever. Cardio vascular: denied any chest pain, palpitations Gastrointestinal denied any nausea vomiting Pulmonary: Shortness of breath improved Neurologic denied any new focal deficits All inpatient medications were reviewed and appropriate changes in these medications as dictated in the interval history and assessment and plan. Objective - Vital Signs Vital signs: Vital Signs Temp 98.2 F 10/18/18 12:58 Pulse 115 H 10/18/18 12:58 Resp 16 10/18/18 12:58 BP 113/70 10/18/18 12:58 Pulse Ox 96 10/18/18 12:58 Intake & Output 10/17/18 10/18/18 10/18/18 18:59 06:59 18:59 Intake Total 590 Balance 590 Weight 74.3 kg Intake: Oral 590 Other: Voiding Method Toilet Toilet Toilet Diaper Diaper Diaper Incontinent Incontinent Incontinent # Voids 0 2 2 # Bowel Movements 1 - Exam PHYSICAL EXAMINATION: GENERAL: The patient is alert and oriented x3, not in any acute distress. And built cachectic female HEENT pupils reacting to light. EOMI. No scleral icterus. No conjunctival pallor. Normocephalic, atraumatic. No pharyngeal erythema. No thyromegaly. CARDIOVASCULAR: S1 and S2 present. No murmurs, rubs, or gallops. PULMONARY: No wheezing today but does have rhonchus breath sounds bilaterally appears to have tracheobronchitis ABDOMEN: Soft, nontender, nondistended, normoactive bowel sounds. No palpable organomegaly. MUSCULOSKELETAL: No joint swelling or deformity. EXTREMITIES: No cyanosis, clubbing, or pedal edema. NEUROLOGICAL: Gross neurological examination did not reveal any focal deficits. SKIN: No rashes. - Labs CBC & Chem 7: 10/15/18 03:00 10/15/18 03:00 Labs: Microbiology - Last 24 Hours (Table) 10/15/18 03:00 Blood Culture - Preliminary Blood No Growth after 72 hours Assessment and Plan Plan: COPD exacerbation: Patient will be continued on systemic steroids, inhalational treatments. Patient quit smoking many years ago, patient was started on oxygen and IV steroids by pulmonology - generalized weakness and deconditioning for which we'll obtain PT and OT consultation patient will not require any subacute rehabilitation -Hyperlipidemia -Hypothyroidism Patient will need pharmacologic GI and DVT prophylaxis For above-mentioned chronic medical problems emphysema and appropriate home medi cations.
--- NOTE | 2018-10-18 15:51 | P.PN ---
Subjective Patient admitted for COPD exacerbation still wheezing but much better compared to yesterday. 10/17/2018 Patient was switched to IV steroids with pulmonology patient is saturating at 83% upon ambulation 10/18/2018 Patient was pretty status improved her wheezing improved today. Constitutional: Denied any fatigue denied any fever. Cardio vascular: denied any chest pain, palpitations Gastrointestinal denied any nausea vomiting Pulmonary: Shortness of breath improved Neurologic denied any new focal deficits All inpatient medications were reviewed and appropriate changes in these medications as dictated in the interval history and assessment and plan. Objective - Vital Signs Vital signs: Vital Signs Temp 98.2 F 10/18/18 12:58 Pulse 115 H 10/18/18 12:58 Resp 16 10/18/18 12:58 BP 113/70 10/18/18 12:58 Pulse Ox 96 10/18/18 12:58 Intake & Output 10/17/18 10/18/18 10/18/18 18:59 06:59 18:59 Intake Total 590 Balance 590 Weight 74.3 kg Intake: Oral 590 Other: Voiding Method Toilet Toilet Toilet Diaper Diaper Diaper Incontinent Incontinent Incontinent # Voids 0 2 2 # Bowel Movements 1 - Labs CBC & Chem 7: 10/15/18 03:00 10/15/18 03:00 Labs: Microbiology - Last 24 Hours (Table) 10/15/18 03:00 Blood Culture - Preliminary Blood No Growth after 72 hours
[2018-10-19] MEDS: LEVOTHYROXINE 100 MCG TAB PO SCH (05:46)
[2018-10-19] MEDS: IPRATROPIUM-ALBUTEROL 3 ML NEB INHALATION SCH ×4 (08:01→19:50)
[2018-10-19] MEDS: SYMBICORT 80-4.5 MCG INHALER INHALATION SCH ×2 (08:01→19:50)
[2018-10-19 08:24] LABS: HCT 24.6 % (34.0-46.0); HGB 7.6 gm/dL (11.4-16.0); Hypochromasia Marked; MCH 26.9 pg (25.0-35.0); MCHC 30.9 g/dL (31.0-37.0); Mean Platelet Volume 7.5; Platelet Count 260 k/uL (150-450); RBC 2.83 m/uL (3.80-5.40); WBC 8.1 k/uL (3.8-10.6)
[2018-10-19 08:45] LABS: Calcium 8.7 mg/dL (8.4-10.2); Potassium 4.7 mmol/L (3.5-5.1)
[2018-10-19] MEDS: ATORVASTATIN 20 MG TAB PO SCH (09:06)
[2018-10-19] MEDS: FLUoxetine HCL 20 MG CAP PO SCH (09:06)
[2018-10-19] MEDS: methylPREDNISolone SOD SUCCI 40 MG/ML 1 ML VIAL IV SCH (09:06)
[2018-10-19] MEDS: DOXYCYCLINE 100 MG CAP PO SCH ×2 (09:06→20:14)
[2018-10-19] MEDS: ASPIRIN 81 MG PO SCH (09:06)
[2018-10-19] MEDS: HEPARIN SODIUM,PORCINE 5,000 UNIT/ML 1 ML VIAL SQ SCH ×2 (09:06→20:14)
[2018-10-19] MEDS: PANTOPRAZOLE 40 MG TABLET PO SCH (09:06)
--- NOTE | 2018-10-19 14:48 | P.PN ---
Subjective Patient admitted for COPD exacerbation still wheezing but much better compared to yesterday. 10/17/2018 Patient was switched to IV steroids with pulmonology patient is saturating at 83% upon ambulation 10/18/2018 Patient was pretty status improved her wheezing improved today. 10/19/2018 Patient is still requiring oxygen upon ablation although her respiratory status significantly improved patient crackles no wheezing was appreciated today. Constitutional: Denied any fatigue denied any fever. Cardio vascular: denied any chest pain, palpitations Gastrointestinal denied any nausea vomiting Pulmonary: Shortness of breath improved Neurologic denied any new focal deficits All inpatient medications were reviewed and appropriate changes in these medications as dictated in the interval history and assessment and plan. Objective - Vital Signs Vital signs: Vital Signs Temp 97.6 F 10/19/18 12:31 Pulse 80 10/19/18 12:44 Resp 16 10/19/18 12:31 BP 144/75 10/19/18 12:31 Pulse Ox 91 L 10/19/18 12:31 Intake & Output 10/18/18 10/19/18 10/19/18 18:59 06:59 18:59 Intake Total 480 Balance 480 Weight 73.6 kg Intake: Oral 480 Other: Voiding Method Toilet Diaper Toilet Diaper Incontinent Diaper Incontinent # Voids 2 2 - Exam PHYSICAL EXAMINATION: GENERAL: The patient is alert and oriented x3, not in any acute distress. And built cachectic female HEENT pupils reacting to light. EOMI. No scleral icterus. No conjunctival pallor. Normocephalic, atraumatic. No pharyngeal erythema. No thyromegaly. CARDIOVASCULAR: S1 and S2 present. No murmurs, rubs, or gallops. PULMONARY: No wheezing today fairly clear breath sounds except for mild bibasilar crackles ABDOMEN: Soft, nontender, nondistended, normoactive bowel sounds. No palpable organomegaly. MUSCULOSKELETAL: No joint swelling or deformity. EXTREMITIES: No cyanosis, clubbing, or pedal edema. NEUROLOGICAL: Gross neurological examination did not reveal any focal deficits. SKIN: No rashes. - Labs CBC & Chem 7: 10/19/18 07:29 10/19/18 07:29 Labs: Abnormal Lab Results - Last 24 Hours (Table) 10/19/18 10/19/18 Range/Units 07:29 07:29 RBC 2.83 L (3.80-5.40) m/uL Hgb 7.6 L (11.4-16.0) gm/dL Hct 24.6 L (34.0-46.0) % MCHC 30.9 L (31.0-37.0) g/dL RDW 16.0 H (11.5-15.5) % BUN 26 H (7-17) mg/dL Microbiology - Last 24 Hours (Table) 10/15/18 03:00 Blood Culture - Preliminary Blood No Growth after 96 hours Assessment and Plan Plan: COPD exacerbation: Patient will be continued on systemic steroids, inhalational treatments. Patient quit smoking many years ago, patient will be switched to oral steroids - generalized weakness and deconditioning for which we'll obtain PT and OT consultation patient will not require any subacute rehabilitation -Hyperlipidemia -Hypothyroidism Patient will need pharmacologic GI and DVT prophylaxis For above-mentioned chronic medical problems emphysema and appropriate home medications.
--- NOTE | 2018-10-19 18:16 | P.PN ---
Subjective Progress Note Date: 10/19/18 Principal diagnosis: Acute COPD exacerbation, hypothyroidism, shortness of breath, cough, dyslipidemia, 10/19/2018, patient seen eval reexamined during the rounds still have ongoing cough congestion shortness of breath patient has generalized weakness with difficulty ambulation, patient is being ordered from [facility] care facility wheezing have slightly improved labs reviewed medications reviewed, chest x-ray suggestive of small effusion 10/18/2018, patient seen and evaluated examined during the rounds breathing is still harsh with bilateral wheezing cough and congestion is present slightly better than yesterday patient has been placed on IV steroids breathing treatment antibiotics 10/17/2018, patient seen and evaluated examined during the rounds is still congested and short of breath she is producing some phlegm now which is dark in color she cannot give exact details and she cannot sleep properly, she is wheezing intermittently care plan discussed with the daughter present at bedside 10/16/2018, patient seen and evaluated examined during the rounds still have a dry cough and shortness of breath intermittent wheezing is present patient is getting breathing treatment slightly improved compared to yesterday 88-year-old female who was seen evaluated examined observation, patient was admitted with the increased shortness of breath and low oxygen saturation she presented into emergency department with cough wheezing and low oxygen saturation are 88%, Patient does have history of COPD. She does nebulizer treatments at home and occasionally wears oxygen. Daughter reports that she woke from sleep this evening and seemed to be somewhat disoriented. States that she checked her oxygen saturation at home and was round 88% on room air. States that she usually runs between 95 and 96%. Patient states that she has had a cough, states she does have sputum production. She denies any fever or chills. States that she does feel generally weak. Denies any chest pain, abdominal pain, nausea, or vomiting. Denies any dizziness. Patient denies any recent rash, diarrhea, constipation, back pain, numbness, tingling, dizziness, weakness, hematuria, dysuria, urinary urgency, urinary frequency, headache, visual changes, or any other complaints. Objective - Vital Signs Vital signs: Vital Signs Temp 97.6 F 10/19/18 12:31 Pulse 76 10/19/18 16:19 Resp 16 10/19/18 12:31 BP 144/75 10/19/18 12:31 Pulse Ox 91 L 10/19/18 12:31 Intake & Output 10/18/18 10/19/18 10/19/18 18:59 06:59 18:59 Intake Total 480 600 Balance 480 600 Weight 73.6 kg Intake: Oral 480 600 Other: Voiding Method Toilet Diaper Toilet Diaper Incontinent Diaper Incontinent # Voids 2 2 2 - Exam - Constitutional General appearance: average body habitus, disheveled, mild distress - EENT Eyes: EOMI, PERRLA, normal appearance ENT: normal oropharynx - Neck Neck: normal ROM Carotids: bilateral: upstroke normal Thyroid: bilateral: normal size - Respiratory Respiratory: bilateral: wheezing (During fours expiration), negative: CTA, diminished, dullness, rales, rhonchi, prolonged expiration, prolonged inspiration - Cardiovascular Rhythm: regular Heart sounds: normal: S1, S2 - Gastrointestinal General gastrointestinal: normal bowel sounds - Neurologic Neurologic: CNII-XII intact - Musculoskeletal Musculoskeletal: gait normal, generalized weakness, strength equal bilaterally - Psychiatric Psychiatric: A&O x's 3, appropriate affect, intact judgment & insight - Labs CBC & Chem 7: 10/19/18 07:29 10/19/18 07:29 Labs: Abnormal Lab Results - Last 24 Hours (Table) 10/19/18 10/19/18 Range/Units 07:29 07:29 RBC 2.83 L (3.80-5.40) m/uL Hgb 7.6 L (11.4-16.0) gm/dL Hct 24.6 L (34.0-46.0) % MCHC 30.9 L (31.0-37.0) g/dL RDW 16.0 H (11.5-15.5) % BUN 26 H (7-17) mg/dL Microbiology - Last 24 Hours (Table) 10/15/18 03:00 Blood Culture - Preliminary Blood No Growth after 96 hours Assessment and Plan Assessment: Acute COPD exacerbation Small left-sided pleural effusion Tracheobronchitis purulent in nature Acute hypoxic respiratory failure related to above Dyslipidemia Hypothyroidism Plan: Fluid is not enough to tap, we will observe it Continue breathing treatment Bronchodilator Continue home medications Continue on IV steroids and antibiotics and repeat x-ray Admit X-ray reviewed Recommendations pending plan of care as per clinical response of the patient Time with Patient: Greater than 30
[2018-10-19] MEDS ORDERED: SALINE NASAL GEL 14.1 GM TUBE TOPICAL PRN (19:55)
[2018-10-20] MEDS: LEVOTHYROXINE 100 MCG TAB PO SCH (05:49)
[2018-10-20] MEDS: SYMBICORT 80-4.5 MCG INHALER INHALATION SCH ×2 (08:02→20:24)
[2018-10-20] MEDS: IPRATROPIUM-ALBUTEROL 3 ML NEB INHALATION SCH ×4 (08:02→20:24)
[2018-10-20] MEDS: ASPIRIN 81 MG PO SCH (08:33)
[2018-10-20] MEDS: predniSONE 20 MG TAB PO SCH (08:33)
[2018-10-20] MEDS: HEPARIN SODIUM,PORCINE 5,000 UNIT/ML 1 ML VIAL SQ SCH ×2 (08:33→20:18)
[2018-10-20] MEDS: DOXYCYCLINE 100 MG CAP PO SCH ×2 (08:33→20:18)
[2018-10-20] MEDS: PANTOPRAZOLE 40 MG TABLET PO SCH (08:33)
[2018-10-20] MEDS: ATORVASTATIN 20 MG TAB PO SCH (08:33)
[2018-10-20] MEDS: FLUoxetine HCL 20 MG CAP PO SCH (08:33)
--- NOTE | 2018-10-20 14:16 | P.PN ---
Subjective Patient admitted for COPD exacerbation still wheezing but much better compared to yesterday. 10/17/2018 Patient was switched to IV steroids with pulmonology patient is saturating at 83% upon ambulation 10/18/2018 Patient was pretty status improved her wheezing improved today. 10/19/2018 Patient is still requiring oxygen upon ablation although her respiratory status significantly improved patient crackles no wheezing was appreciated today. 10/20/2018 Patient requests placement quite weak require subacute rehabilitation. Constitutional: Denied any fatigue denied any fever. Cardio vascular: denied any chest pain, palpitations Gastrointestinal denied any nausea vomiting Pulmonary: Shortness of breath improved Neurologic denied any new focal deficits All inpatient medications were reviewed and appropriate changes in these medications as dictated in the interval history and assessment and plan. Objective - Vital Signs Vital signs: Vital Signs Temp 97.7 F 10/20/18 04:45 Pulse 106 H 10/20/18 08:16 Resp 18 10/20/18 04:45 BP 144/65 10/20/18 04:45 Pulse Ox 94 L 10/20/18 08:03 Intake & Output 10/19/18 10/20/18 10/20/18 18:59 06:59 18:59 Intake Total 600 720 Balance 600 720 Weight 74 kg Intake: Oral 600 720 Other: Voiding Method Toilet Toilet Diaper Diaper Incontinent # Voids 2 2 - Exam PHYSICAL EXAMINATION: GENERAL: The patient is alert and oriented x3, not in any acute distress. And built cachectic female HEENT pupils reacting to light. EOMI. No scleral icterus. No conjunctival pallor. Normocephalic, atraumatic. No pharyngeal erythema. No thyromegaly. CARDIOVASCULAR: S1 and S2 present. No murmurs, rubs, or gallops. PULMONARY: No wheezing today fairly clear breath sounds except for mild bibasilar crackles ABDOMEN: Soft, nontender, nondistended, normoactive bowel sounds. No palpable organomegaly. MUSCULOSKELETAL: No joint swelling or deformity. EXTREMITIES: No cyanosis, clubbing, or pedal edema. NEUROLOGICAL: Gross neurological examination did not reveal any focal deficits. SKIN: No rashes. - Labs CBC & Chem 7: 10/19/18 07:29 10/19/18 07:29 Labs: Microbiology - Last 24 Hours (Table) 10/15/18 03:00 Blood Culture - Preliminary Blood No Growth after 120 hours Assessment and Plan Plan: COPD exacerbation: Patient will be continued on systemic steroids, inhalational treatments. Patient quit smoking many years ago, patient will be switched to oral steroids - generalized weakness and deconditioning for which we'll obtain PT and OT consultation patient will not require any subacute rehabilitation -Hyperlipidemia -Hypothyroidism -Chronic anemia normocytic anemia probably that is combined iron deficiency and regional deficiency., Will obtain levels of ferritin and B12 Patient will need pharmacologic GI and DVT prophylaxis For above-mentioned chronic medical problems emphysema and appropriate home medi cations.
--- NOTE | 2018-10-20 16:51 | P.PN ---
Subjective Progress Note Date: 10/20/18 Principal diagnosis: Acute COPD exacerbation, hypothyroidism, shortness of breath, cough, dyslipidemia, 10/20/2018, patient seen eval reexamined during the rounds breathing comfortably still has some cough and congestion, due to weakness being considered for rehab continue to get breathing treatments and oral prednisone 10/19/2018, patient seen eval reexamined during the rounds still have ongoing cough congestion shortness of breath patient has generalized weakness with diff iculty ambulation, patient is being ordered from extended care facility wheezing have slightly improved labs reviewed medications reviewed, chest x-ray suggestive of small effusion 10/18/2018, patient seen and evaluated examined during the rounds breathing is still harsh with bilateral wheezing cough and congestion is present slightly better than yesterday patient has been placed on IV steroids breathing treatment antibiotics 10/17/2018, patient seen and evaluated examined during the rounds is still congested and short of breath she is producing some phlegm now which is dark in color she cannot give exact details and she cannot sleep properly, she is wheezing intermittently care plan discussed with the daughter present at bedside 10/16/2018, patient seen and evaluated examined during the rounds still have a dry cough and shortness of breath intermittent wheezing is present patient is getting breathing treatment slightly improved compared to yesterday 88-year-old female who was seen evaluated examined observation, patient was admitted with the increased shortness of breath and low oxygen saturation she presented into emergency department with cough wheezing and low oxygen satur ation are 88%, Patient does have history of COPD. She does nebulizer treatments at home and occasionally wears oxygen. Daughter reports that she woke from sleep this evening and seemed to be somewhat disoriented. States that she checked her oxygen saturation at home and was round 88% on room air. States that she usually runs between 95 and 96%. Patient states that she has had a cough, states she does have sputum production. She denies any fever or chills. States that she does feel generally weak. Denies any chest pain, abdominal pain, nausea, or vomiting. Denies any dizziness. Patient denies any recent rash, diarrhea, constipation, back pain, numbness, tingling, dizziness, weaknes s, hematuria, dysuria, urinary urgency, urinary frequency, headache, visual changes, or any other complaints. Objective - Vital Signs Vital signs: Vital Signs Temp 98 F 10/20/18 14:30 Pulse 92 10/20/18 16:38 Resp 18 10/20/18 16:00 BP 131/66 10/20/18 14:30 Pulse Ox 93 L 10/20/18 14:30 Intake & Output 10/19/18 10/20/18 10/20/18 18:59 06:59 18:59 Intake Total 600 720 Balance 600 720 Weight 74 kg Intake: Oral 600 720 Other: Voiding Method Toilet Toilet Toilet Diaper Diaper Diaper Incontinent Incontinent # Voids 2 2 2 - Exam - Constitutional General appearance: average body habitus, disheveled, mild distress - EENT Eyes: EOMI, PERRLA, normal appearance ENT: normal oropharynx - Neck Neck: normal ROM Carotids: bilateral: upstroke normal Thyroid: bilateral: normal size - Respiratory Respiratory: bilateral: wheezing (During fours expiration), negative: CTA, diminished, dullness, rales, rhonchi, prolonged expiration, prolonged inspiration - Cardiovascular Rhythm: regular Heart sounds: normal: S1, S2 - Gastrointestinal General gastrointestinal: normal bowel sounds - Neurologic Neurologic: CNII-XII intact - Musculoskeletal Musculoskeletal: gait normal, generalized weakness, strength equal bilaterally - Psychiatric Psychiatric: A&O x's 3, appropriate affect, intact judgment & insight - Labs CBC & Chem 7: 10/19/18 07:29 10/19/18 07:29 Labs: Microbiology - Last 24 Hours (Table) 10/15/18 03:00 Blood Culture - Preliminary Blood No Growth after 120 hours Assessment and Plan Assessment: Acute COPD exacerbation Small left-sided pleural effusion Tracheobronchitis purulent in nature Acute hypoxic respiratory failure related to above Dyslipidemia Hypothyroidism Plan: Agree placement in rehab Fluid is not enough to tap, we will observe it Continue breathing treatment A breathing exercise incentive spirometry Bronchodilator Continue home medications Recommendations pending plan of care as per clinical response of the patient Time with Patient: Greater than 30
[2018-10-21] MEDS: LEVOTHYROXINE 100 MCG TAB PO SCH (06:10)
[2018-10-21] MEDS: IPRATROPIUM-ALBUTEROL 3 ML NEB INHALATION SCH ×4 (08:17→20:21)
[2018-10-21] MEDS: SYMBICORT 80-4.5 MCG INHALER INHALATION SCH ×2 (08:17→20:21)
[2018-10-21 09:23] LABS: Anisocytosis Slight; Basophils % (A) 0 %; Eosinophils # (A) 0.1 k/uL (0-0.7); Eosinophils % (A) 1 %; HCT 25.6 % (34.0-46.0); HGB 7.8 gm/dL (11.4-16.0); Hypochromasia Marked; Lymphocytes # (A) 2.4 k/uL (1.0-4.8); Lymphocytes % (A) 24 %; MCH 26.7 pg (25.0-35.0); MCHC 30.6 g/dL (31.0-37.0); MCV 87.3 fL (80.0-100.0); Mean Platelet Volume 7.7; Monocytes # (A) 0.8 k/uL (0-1.0); Monocytes % (A) 8 %; Neutrophils # (A) 6.4 k/uL (1.3-7.7); Neutrophils % (A) 65 %; Platelet Count 334 k/uL (150-450); RBC 2.93 m/uL (3.80-5.40); RDW 16.1 % (11.5-15.5)
[2018-10-21] MEDS: FLUoxetine HCL 20 MG CAP PO SCH (10:00)
[2018-10-21] MEDS: HEPARIN SODIUM,PORCINE 5,000 UNIT/ML 1 ML VIAL SQ SCH ×2 (10:00→20:14)
[2018-10-21] MEDS: PANTOPRAZOLE 40 MG TABLET PO SCH (10:00)
[2018-10-21] MEDS: DOXYCYCLINE 100 MG CAP PO SCH ×2 (10:00→20:14)
[2018-10-21] MEDS: predniSONE 20 MG TAB PO SCH (10:00)
[2018-10-21] MEDS: ATORVASTATIN 20 MG TAB PO SCH (10:00)
[2018-10-21] MEDS: ASPIRIN 81 MG PO SCH (10:00)
--- NOTE | 2018-10-21 15:10 | P.DS ---
Providers Date of admission: 10/15/18 13:01 Attending physician: Randy Neumann MD Consults: 10/15/18 12:40 Consult Physician Routine Consulting Provider: Humza Harper Consult Reason/Comments: COPD Do you want consulting provider notified?: Yes Primary care physician: Stated None Hospital Course: Patient admitted for COPD exacerbation still wheezing but much better compared to yesterday. 10/17/2018 Patient was switched to IV steroids with pulmonology patient is saturating at 83% upon ambulation 10/18/2018 Patient was pretty status improved her wheezing improved today. 10/19/2018 Patient is still requiring oxygen upon ablation although her respiratory status significantly improved patient crackles no wheezing was appreciated today. 10/20/2018 Patient requests placement quite weak require subacute rehabilitation. 10/21/2018 patient will be discharged today if prior authorization from insurance comes through Constitutional: Denied any fatigue denied any fever. Cardio vascular: denied any chest pain, palpitations Gastrointestinal denied any nausea vomiting Pulmonary: Shortness of breath improved Neurologic denied any new focal deficits All inpatient medications were reviewed and appropriate changes in these medications as dictated in the interval history and assessment and plan. Assessment and Plan Plan: COPD exacerbation: Patient will be continued on systemic steroids, inhalational treatments. Patient quit smoking many years ago. - generalized weakness and deconditioning patient the probably require subacute rehabilitation and long-term placement on the line -Hyperlipidemia -Hypothyroidism -Chronic anemia normocytic anemia probably that is combined iron deficiency and regional deficiency., I do not have and B12 and ferritin levels available yet For above-mentioned chronic medical problems emphysema and appropriate home medications. Patient Condition at Discharge: Stable Plan - Discharge Summary Discharge Rx Participant: No New Discharge Prescriptions: New Ipratropium-Albuterol Nebulize [Duoneb 0.5 mg-3 mg/3 ml Soln] 3 ml INHALATION RT-Q4H PRN ampul.neb PRN Reason: Shortness Of Breath Or Wheezing predniSONE 10 mg PO DAILY #30 tab Doxycycline [Vibramycin] 100 mg PO BID #6 cap Continue Omeprazole 40 mg PO DAILY Folic Acid 1 mg PO DAILY Simvastatin 40 mg PO DAILY Fluticasone/Salmeterol [Advair 250-50 Diskus] 1 inhalation PO BID Cholecalciferol [Vitamin D3 (25 Mcg = 1000 Iu)] 1,000 unit PO DAILY Multivit with Calcium,Iron,Min [Women's Multivitamin] 1 each PO DAILY Glucosamine/Chondr Bonilla A Sod [Osteo Bi-Flex Caplet] 1 each PO DAILY Aspirin [Adult Low Dose Aspirin EC] 81 mg PO DAILY Cyanocobalamin (Vitamin B-12) [Vitamin B-12] 1,000 mcg PO DAILY Levothyroxine Sodium 100 mcg PO DAILY FLUoxetine HCL [PROzac] 20 mg PO DAILY Vit C/E/Zn/Coppr/Lutein/Zeaxan [Preservision Areds 2 Softgel] 1 cap PO BID Discontinued predniSONE 7.5 mg PO DAILY Discharge Medication List Aspirin [Adult Low Dose Aspirin EC] 81 mg PO DAILY 10/15/18 [History] Cholecalciferol [Vitamin D3 (25 Mcg = 1000 Iu)] 1,000 unit PO DAILY 10/15/18 [History] Cyanocobalamin (Vitamin B-12) [Vitamin B-12] 1,000 mcg PO DAILY 10/15/18 [History] FLUoxetine HCL [PROzac] 20 mg PO DAILY 10/15/18 [History] Fluticasone/Salmeterol [Advair 250-50 Diskus] 1 inhalation PO BID 10/15/18 [History] Folic Acid 1 mg PO DAILY 10/15/18 [History] Glucosamine/Chondr Bonilla A Sod [Osteo Bi-Flex Caplet] 1 each PO DAILY 10/15/18 [History] Levothyroxine Sodium 100 mcg PO DAILY 10/15/18 [History] Multivit with Calcium,Iron,Min [Women's Multivitamin] 1 each PO DAILY 10/15/18 [History] Omeprazole 40 mg PO DAILY 10/15/18 [History] Simvastatin 40 mg PO DAILY 10/15/18 [History] Vit C/E/Zn/Coppr/Lutein/Zeaxan [Preservision Areds 2 Softgel] 1 cap PO BID 10/15 [History] Doxycycline [Vibramycin] 100 mg PO BID #6 cap 10/21/18 [Rx] Ipratropium-Albuterol Nebulize [Duoneb 0.5 mg-3 mg/3 ml Soln] 3 ml INHALATION RT-Q4H PRN ampul.neb 10/21/18 [Rx] predniSONE 10 mg PO DAILY #30 tab 10/21/18 [Rx] Follow up Appointment(s)/Referral(s): Rogelio Benoit MD [STAFF PHYSICIAN] - 1 Week None,Stated [Primary Care Provider] - 1-2 days Humza Harper MD [STAFF PHYSICIAN] - 1 Week Discharge Disposition: TRANSFER TO SNF/ECF
[2018-10-21] MEDS ORDERED: FUROSEMIDE 10 MG/ML 4 ML VIAL IV STA (19:36)
[2018-10-22] MEDS ORDERED: FUROSEMIDE 10 MG/ML 4 ML VIAL IV ONE (02:00)
[2018-10-22] MEDS: MAGNESIUM HYDROXIDE 2,400 MG/10 ML CUP PO PRN (06:29)
[2018-10-22] MEDS: LEVOTHYROXINE 100 MCG TAB PO SCH (06:29)
[2018-10-22] MEDS: IPRATROPIUM-ALBUTEROL 3 ML NEB INHALATION SCH ×4 (07:37→18:56)
[2018-10-22] MEDS: SYMBICORT 80-4.5 MCG INHALER INHALATION SCH ×2 (07:37→18:56)
[2018-10-22] MEDS: FLUoxetine HCL 20 MG CAP PO SCH (07:43)
[2018-10-22] MEDS: ATORVASTATIN 20 MG TAB PO SCH (07:43)
[2018-10-22] MEDS: PANTOPRAZOLE 40 MG TABLET PO SCH (07:43)
[2018-10-22] MEDS: ASPIRIN 81 MG PO SCH (07:43)
[2018-10-22] MEDS: predniSONE 20 MG TAB PO SCH (07:43)
[2018-10-22] MEDS: HEPARIN SODIUM,PORCINE 5,000 UNIT/ML 1 ML VIAL SQ SCH ×2 (07:43→21:50)
[2018-10-22] MEDS: DOXYCYCLINE 100 MG CAP PO SCH ×2 (07:46→21:50)
[2018-10-22 07:51] LABS: Anisocytosis Slight; Basophils % (A) 0 %; Eosinophils # (A) 0.1 k/uL (0-0.7); Eosinophils % (A) 1 %; HCT 29.8 % (34.0-46.0); HGB 9.1 gm/dL (11.4-16.0); Hypochromasia Marked; Lymphocytes # (A) 2.7 k/uL (1.0-4.8); Lymphocytes % (A) 22 %; MCH 26.1 pg (25.0-35.0); MCHC 30.6 g/dL (31.0-37.0); MCV 85.5 fL (80.0-100.0); Mean Platelet Volume 7.2; Monocytes % (A) 8 %; Neutrophils # (A) 8.2 k/uL (1.3-7.7); Neutrophils % (A) 67 %; Platelet Count 358 k/uL (150-450); RBC 3.48 m/uL (3.80-5.40); RDW 16.2 % (11.5-15.5); WBC 12.3 k/uL (3.8-10.6)
--- NOTE | 2018-10-22 07:59 | XR ---
EXAMINATION TYPE: XR chest 1V DATE OF EXAM: 10/22/2018 COMPARISON: 10/18/2018 HISTORY: Shortness of breath TECHNIQUE: Single frontal view of the chest is obtained. FINDINGS: There is no focal air space opacity, pleural effusion, or pneumothorax seen. The cardiac silhouette size is within normal limits. The osseous structures are intact. Retrocardiac density mo st likely related to a hiatal hernia is stable. Elevated right hemidiaphragm is again noted. Arthropa thy of the shoulders. Atherosclerotic change aorta. IMPRESSION: 1. Persistent right hemidiaphragm paresis with no definite acute infiltrate. 2. Stable retrocardiac density most likely in the basis of hiatal hernia. Correlate clinically.
[2018-10-22 08:01] LABS: Albumin 3.8 g/dL (3.5-5.0); Calcium 9.4 mg/dL (8.4-10.2); Magnesium 1.9 mg/dL (1.6-2.3); Potassium 4.2 mmol/L (3.5-5.1); Total Bilirubin 0.3 mg/dL (0.2-1.3); Total Protein 6.4 g/dL (6.3-8.2)
--- NOTE | 2018-10-22 14:55 | P.PN ---
Subjective Patient admitted for COPD exacerbation still wheezing but much better compared to yesterday. 10/17/2018 Patient was switched to IV steroids with pulmonology patient is saturating at 83% upon ambulation 10/18/2018 Patient was pretty status improved her wheezing improved today. 10/19/2018 Patient is still requiring oxygen upon ablation although her respiratory status significantly improved patient crackles no wheezing was appreciated today. 10/20/2018 Patient requests placement quite weak require subacute rehabilitation. 10/22/2018 Patient is awaiting disposition to subacute rehab, patient had an episode of shortness of breath last night because of which patient was given Lasix last night and today morning as well. Which led to intravascular depletion patient became tachycardic blood pressure dropped patient was lightheaded and patient went into renal failure patient will be started on IV fluids today. Chest x-ray did not show any pulmonary edema. Shortness of breath is probably related to her COPD itself. has hiatal hernia on the chest x-ray.Patient does have a elevated right hemidiaphragm Constitutional: Denied any fatigue denied any fever. Cardio vascular: denied any chest pain, palpitations Gastrointestinal denied any nausea vomiting Pulmonary: Shortness of breath improved Neurologic denied any new focal deficits All inpatient medications were reviewed and appropriate changes in these medications as dictated in the interval history and assessment and plan. Objective - Vital Signs Vital signs: Vital Signs Temp 97.7 F 10/22/18 12:16 Pulse 133 H 10/22/18 12:16 Resp 20 10/22/18 12:16 BP 112/55 10/22/18 12:16 Pulse Ox 93 L 10/22/18 12:16 Intake & Output 10/21/18 10/22/18 10/22/18 18:59 06:59 18:59 Intake Total 600 350 Balance 600 350 Intake: Oral 600 350 Other: Voiding Method Toilet Toilet Toilet Incontinent Incontinent Incontinent # Voids 2 4 - Exam PHYSICAL EXAMINATION: GENERAL: The patient is alert and oriented x3, not in any acute distress. And built cachectic female HEENT pupils reacting to light. EOMI. No scleral icterus. No conjunctival pallor. Normocephalic, atraumatic. No pharyngeal erythema. No thyromegaly. CARDIOVASCULAR: S1 and S2 present. No murmurs, rubs, or gallops. PULMONARY: No wheezing today fairly clear breath sounds ABDOMEN: Soft, nontender, nondistended, normoactive bowel sounds. No palpable organomegaly. MUSCULOSKELETAL: No joint swelling or deformity. EXTREMITIES: No cyanosis, clubbing, or pedal edema. NEUROLOGICAL: Gross neurological examination did not reveal any focal deficits. SKIN: No rashes. - Labs CBC & Chem 7: 10/22/18 07:24 10/22/18 07:24 Labs: Abnormal Lab Results - Last 24 Hours (Table) 10/21/18 10/22/18 10/22/18 Range/Units 08:37 07:24 07:24 WBC 12.3 H (3.8-10.6) k/uL RBC 3.48 L (3.80-5.40) m/uL Hgb 9.1 L (11.4-16.0) gm/dL Hct 29.8 L (34.0-46.0) % MCHC 30.6 L (31.0-37.0) g/dL RDW 16.2 H (11.5-15.5) % Neutrophils # 8.2 H (1.3-7.7) k/uL Chloride 93 L (98-107) mmol/L Carbon Dioxide 35 H (22-30) mmol/L BUN 32 H (7-17) mg/dL Creatinine 1.38 H (0.52-1.04) mg/dL Vitamin B12 1702.0 H (200.0-944.0) pg/mL
[2018-10-22] MEDS: SODIUM CHLORIDE 0.9% 1,000 ML IV SCH (15:00)
[2018-10-22] MEDS: LACTULOSE 20 GM/30 ML CUP PO PRN (18:38)
[2018-10-23] MEDS: SODIUM CHLORIDE 0.9% 1,000 ML IV SCH ×2 (02:00→16:35)
[2018-10-23] MEDS: LEVOTHYROXINE 100 MCG TAB PO SCH (05:47)
[2018-10-23] MEDS: SYMBICORT 80-4.5 MCG INHALER INHALATION SCH ×2 (07:08→20:34)
[2018-10-23] MEDS: IPRATROPIUM-ALBUTEROL 3 ML NEB INHALATION SCH ×4 (07:08→20:34)
--- NOTE | 2018-10-23 09:06 | P.PN ---
Subjective Progress Note Date: 10/21/18 Principal diagnosis: Acute COPD exacerbation, hypothyroidism, shortness of breath, cough, dyslipidemia, 10/21/2018, patient seen and evaluated examined during rounds she is doing s lightly better but still have significant wheezing and congestion primary service is thinking to change to IV steroids to by mouth, unable to ambulate due to shortness of breath 10/20/2018, patient seen eval reexamined during the rounds breathing comfortably still has some cough and congestion, due to weakness being considered for rehab continue to get breathing treatments and oral prednisone 10/19/2018, patient seen eval reexamined during the rounds still have ongoing cough congestion shortness of breath patient has generalized weakness with difficulty ambulation, patient is being ordered from [facility] care facility wheezing have slightly improved labs reviewed medications reviewed, chest x-ray suggestive of small effusion 10/18/2018, patient seen and evaluated examined during the rounds breathing is still harsh with bilateral wheezing cough and congestion is present slightly better than yesterday patient has been placed on IV steroids breathing treatment antibiotics 10/17/2018, patient seen and evaluated examined during the rounds is still congested and short of breath she is producing some phlegm now which is dark in color she cannot give exact details and she cannot sleep properly, she is wheezing intermittently care plan discussed with the daughter present at bedside 10/16/2018, patient seen and evaluated examined during the rounds still have a dry cough and shortness of breath intermittent wheezing is present patient is getting breathing treatment slightly improved compared to yesterday 88-year-old female who was seen evaluated examined observation, patient was admitted with the increased shortness of breath and low oxygen saturation she presented into emergency department with cough wheezing and low oxygen saturation are 88%, Patient does have history of COPD. She does nebulizer treatments at home and occasionally wears oxygen. Daughter reports that she woke from sleep this evening and seemed to be somewhat disoriented. States that she checked her oxygen saturation at home and was round 88% on room air. States that she usually runs between 95 and 96%. Patient states that she has had a cough, states she does have sputum production. She denies any fever or chills. States that she does feel generally weak. Denies any chest pain, abdominal pain, nausea, or vomiting. Denies any dizziness. Patient denies any recent rash, diarrhea, constipation, back pain, numbness, tingling, dizziness, weakness, hematuria, dysuria, urinary urgency, urinary frequency, headache, visual changes, or any other complaints. Objective - Vital Signs Vital signs: Vital Signs Temp 97.8 F 10/21/18 05:00 Pulse 80 10/21/18 17:05 Resp 16 10/21/18 16:00 BP 162/63 10/21/18 05:00 Pulse Ox 95 10/21/18 05:00 Intake & Output 10/21/18 10/21/18 10/22/18 06:59 18:59 06:59 Intake Total 1090 600 Balance 1090 600 Weight 73.3 kg Intake: Oral 1090 600 Other: Voiding Method Toilet Toilet Incontinent Incontinent # Voids 2 2 - Exam - Constitutional General appearance: average body habitus, disheveled, mild distress - EENT Eyes: EOMI, PERRLA, normal appearance ENT: normal oropharynx - Neck Neck: normal ROM Carotids: bilateral: upstroke normal Thyroid: bilateral: normal size - Respiratory Respiratory: bilateral: wheezing (During fours expiration), negative: CTA, diminished, dullness, rales, rhonchi, prolonged expiration, prolonged inspiration - Cardiovascular Rhythm: regular Heart sounds: normal: S1, S2 - Gastrointestinal General gastrointestinal: normal bowel sounds - Neurologic Neurologic: CNII-XII intact - Musculoskeletal Musculoskeletal: gait normal, generalized weakness, strength equal bilaterally - Psychiatric Psychiatric: A&O x's 3, appropriate affect, intact judgment & insight - Labs CBC & Chem 7: 10/22/18 07:24 10/22/18 07:24 Labs: Abnormal Lab Results - Last 24 Hours (Table) 10/21/18 10/21/18 Range/Units 08:37 08:37 RBC 2.93 L (3.80-5.40) m/uL Hgb 7.8 L (11.4-16.0) gm/dL Hct 25.6 L (34.0-46.0) % MCHC 30.6 L (31.0-37.0) g/dL RDW 16.1 H (11.5-15.5) % Vitamin B12 1702.0 H (200.0-944.0) pg/mL Microbiology - Last 24 Hours (Table) 10/15/18 03:00 Blood Culture - Final Blood No Growth after 144 hours Assessment and Plan Assessment: Acute COPD exacerbation Small left-sided pleural effusion Tracheobronchitis purulent in nature Acute hypoxic respiratory failure related to above Dyslipidemia Hypothyroidism Plan: Agree placement in rehab Fluid is not enough to tap, we will observe it Continue breathing treatment A breathing exercise incentive spirometry Bronchodilator, breathing treatments and steroids Continue home medications Recommendations pending plan of care as per clinical response of the patient Time with Patient: Greater than 30
--- NOTE | 2018-10-23 09:10 | P.PN ---
Subjective Progress Note Date: 10/22/18 Principal diagnosis: Acute COPD exacerbation, hypothyroidism, shortness of breath, cough, dyslipidemia, 10/22/2018, patient seen eval reexamined resting in bed still have cough con gestion shortness of breath severity has not much change patient is a on oral steroids now labs reviewed medications reviewed x-ray chest reviewed as well showed the resolution of pleural effusion some left retrocardiac density due to hiatal hernia 10/21/2018, patient seen and evaluated examined during rounds she is doing slightly better but still have significant wheezing and congestion primary service is thinking to change to IV steroids to by mouth, unable to ambulate due to shortness of breath 10/20/2018, patient seen eval reexamined during the rounds breathing comfortably still has some cough and congestion, due to weakness being considered for rehab continue to get breathing treatments and oral prednisone 10/19/2018, patient seen eval reexamined during the rounds still have ongoing cough congestion shortness of breath patient has generalized weakness with difficulty ambulation, patient is being ordered from extended care facility wheezing have slightly improved labs reviewed medications reviewed, chest x-ray suggestive of small effusion 10/18/2018, patient seen and evaluated examined during the rounds breathing is still harsh with bilateral wheezing cough and congestion is present slightly better than yesterday patient has been placed on IV steroids breathing treatment antibiotics 10/17/2018, patient seen and evaluated examined during the rounds is still congested and short of breath she is producing some phlegm now which is dark in color she cannot give exact details and she cannot sleep properly, she is wheezing intermittently care plan discussed with the daughter present at bedside 10/16/2018, patient seen and evaluated examined during the rounds still have a dry cough and shortness of breath intermittent wheezing is present patient is getting breathing treatment slightly improved compared to yesterday 88-year-old female who was seen evaluated examined observation, patient was admitted with the increased shortness of breath and low oxygen saturation she presented into emergency department with cough wheezing and low oxygen saturation are 88%, Patient does have history of COPD. She does nebulizer treatments at home and occasionally wears oxygen. Daughter reports that she woke from sleep this evening and seemed to be somewhat disoriented. States that she checked her oxygen saturation at home and was round 88% on room air. States that she usually runs between 95 and 96%. Patient states that she has had a cough, states she does have sputum production. She denies any fever or chills. States that she does feel generally weak. Denies any chest pain, abdominal pain, nausea, or vomiting. Denies any dizziness. Patient denies any recent rash, diarrhea, constipation, back pain, numbness, tingling, dizziness, weakness, hematuria, dysuria, urinary urgency, urinary frequency, headache, visual changes, or any other complaints. Objective - Vital Signs Vital signs: Vital Signs Temp 97.7 F 10/22/18 12:16 Pulse 78 10/22/18 15:31 Resp 20 10/22/18 12:16 BP 112/55 10/22/18 12:16 Pulse Ox 93 L 10/22/18 12:16 Intake & Output 10/21/18 10/22/18 10/22/18 18:59 06:59 18:59 Intake Total 600 350 Balance 600 350 Intake: Oral 600 350 Other: Voiding Method Toilet Toilet Toilet Incontinent Incontinent Incontinent # Voids 2 4 - Exam - Constitutional General appearance: average body habitus, disheveled, mild distress - EENT Eyes: EOMI, PERRLA, normal appearance ENT: normal oropharynx - Neck Neck: normal ROM Carotids: bilateral: upstroke normal Thyroid: bilateral: normal size - Respiratory Respiratory: bilateral: wheezing (During fours expiration), negative: CTA, diminished, dullness, rales, rhonchi, prolonged expiration, prolonged inspiration - Cardiovascular Rhythm: regular Heart sounds: normal: S1, S2 - Gastrointestinal General gastrointestinal: normal bowel sounds - Neurologic Neurologic: CNII-XII intact - Musculoskeletal Musculoskeletal: gait normal, generalized weakness, strength equal bilaterally - Psychiatric Psychiatric: A&O x's 3, appropriate affect, intact judgment & insight - Labs CBC & Chem 7: 10/22/18 07:24 10/22/18 07:24 Labs: Abnormal Lab Results - Last 24 Hours (Table) 10/22/18 10/22/18 Range/Units 07:24 07:24 WBC 12.3 H (3.8-10.6) k/uL RBC 3.48 L (3.80-5.40) m/uL Hgb 9.1 L (11.4-16.0) gm/dL Hct 29.8 L (34.0-46.0) % MCHC 30.6 L (31.0-37.0) g/dL RDW 16.2 H (11.5-15.5) % Neutrophils # 8.2 H (1.3-7.7) k/uL Chloride 93 L (98-107) mmol/L Carbon Dioxide 35 H (22-30) mmol/L BUN 32 H (7-17) mg/dL Creatinine 1.38 H (0.52-1.04) mg/dL Assessment and Plan Assessment: Acute COPD exacerbation Small left-sided pleural effusion, resolved Tracheobronchitis purulent in nature Acute hypoxic respiratory failure related to above Dyslipidemia Hypothyroidism Plan: Agree placement in rehab Fluid is not enough to tap, we will observe it Continue breathing treatment A breathing exercise incentive spirometry Bronchodilator, breathing treatments and steroids Continue home medications Recommendations pending plan of care as per clinical response of the patient
--- NOTE | 2018-10-23 09:22 | P.PN ---
Subjective Progress Note Date: 10/23/18 Principal diagnosis: Acute COPD exacerbation, hypothyroidism, shortness of breath, cough, dyslipidemia, 10/23/2018 patient seen eval reexamined during the rounds she is undergoing breathing treatment therapy denies any chest pain is still have congestion shortness of breath she is unable to walk to the bathroom without support, hemoglobin is up to 9.1 white cell count is slightly elevated patient developed hypotension with diuresis to Lasix has been discontinued 10/22/2018, patient seen eval reexamined resting in bed still have cough congestion shortness of breath severity has not much change patient is a on oral steroids now labs reviewed medications reviewed x-ray chest reviewed as well showed the resolution of pleural effusion some left retrocardiac density due to hiatal hernia 10/21/2018, patient seen and evaluated examined during rounds she is doing slightly better but still have significant wheezing and congestion primary service is thinking to change to IV steroids to by mouth, unable to ambulate due to shortness of breath 10/20/2018, patient seen eval reexamined during the rounds breathing comfortably still has some cough and congestion, due to weakness being considered for rehab continue to get breathing treatments and oral prednisone 10/19/2018, patient seen eval reexamined during the rounds still have ongoing cough congestion shortness of breath patient has generalized weakness with difficulty ambulation, patient is being ordered from extended care facility wheezing have slightly improved labs reviewed medications reviewed, chest x-ray suggestive of small effusion 10/18/2018, patient seen and evaluated examined during the rounds breathing is still harsh with bilateral wheezing cough and congestion is present slightly better than yesterday patient has been placed on IV steroids breathing treatment antibiotics 10/17/2018, patient seen and evaluated examined during the rounds is still congested and short of breath she is producing some phlegm now which is dark in color she cannot give exact details and she cannot sleep properly, she is wheezing intermittently care plan discussed with the daughter present at bedside 10/16/2018, patient seen and evaluated examined during the rounds still have a dry cough and shortness of breath intermittent wheezing is present patient is getting breathing treatment slightly improved compared to yesterday 88-year-old female who was seen evaluated examined observation, patient was admitted with the increased shortness of breath and low oxygen saturation she presented into emergency department with cough wheezing and low oxygen saturation are 88%, Patient does have history of COPD. She does nebulizer treatments at home and occasionally wears oxygen. Daughter reports that she woke from sleep this evening and seemed to be somewhat disoriented. States that she checked her oxygen saturation at home and was round 88% on room air. States that she usually runs between 95 and 96%. Patient states that she has had a cough, states she does have sputum production. She denies any fever or chills. States that she does feel generally weak. Denies any chest pain, abdominal pain, nausea, or vomiting. Denies any dizziness. Patient denies any recent rash, diarrhea, constipation, back pain, numbness, tingling, dizziness, weakness, hematuria, dysuria, urinary urgency, urinary frequency, headache, visual changes, or any other complaints. Objective - Vital Signs Vital signs: Vital Signs Temp 97.7 F 10/23/18 04:14 Pulse 97 10/23/18 07:20 Resp 16 10/23/18 04:14 BP 118/71 10/23/18 04:14 Pulse Ox 98 10/23/18 04:14 Intake & Output 10/22/18 10/23/18 10/23/18 18:59 06:59 18:59 Intake Total 600 850 Balance 600 850 Weight 71.53 kg Intake: Intake, IV Titration 600 650 Amount Sodium Chloride 0.9% 1, 600 650 000 ml @ 75 mls/hr IV . [id number] [facility] Rx#:[id number] Oral 200 Other: Voiding Method Toilet Bedside Commode Incontinent # Voids 4 1 # Bowel Movements 1 - Exam - Constitutional General appearance: average body habitus, disheveled, mild distress - EENT Eyes: EOMI, PERRLA, normal appearance ENT: normal oropharynx - Neck Neck: normal ROM Carotids: bilateral: upstroke normal Thyroid: bilateral: normal size - Respiratory Respiratory: bilateral: wheezing (During fours expiration), negative: CTA, diminished, dullness, rales, rhonchi, prolonged expiration, prolonged inspiration - Cardiovascular Rhythm: regular Heart sounds: normal: S1, S2 - Gastrointestinal General gastrointestinal: normal bowel sounds - Neurologic Neurologic: CNII-XII intact - Musculoskeletal Musculoskeletal: gait normal, generalized weakness, strength equal bilaterally - Psychiatric Psychiatric: A&O x's 3, appropriate affect, intact judgment & insight - Labs CBC & Chem 7: 10/22/18 07:24 06/13/19 07:24 Assessment and Plan Assessment: Acute COPD exacerbation Small left-sided pleural effusion, resolved Tracheobronchitis purulent in nature Acute hypoxic respiratory failure related to above Dyslipidemia Hypothyroidism Plan: Agree placement in rehab Continue breathing treatment A breathing exercise incentive spirometry Bronchodilator, breathing treatments and steroids Continue home medications Increase activity as tolerated Recommendations pending plan of care as per clinical response of the patient Time with Patient: Greater than 30
[2018-10-23 09:26] LABS: Albumin 3.2 g/dL (3.5-5.0); Calcium 8.4 mg/dL (8.4-10.2); Potassium 4.2 mmol/L (3.5-5.1); Total Bilirubin 0.3 mg/dL (0.2-1.3); Total Protein 5.6 g/dL (6.3-8.2)
[2018-10-23] MEDS: DOXYCYCLINE 100 MG CAP PO SCH ×2 (09:41→20:23)
[2018-10-23] MEDS: MAGNESIUM HYDROXIDE 2,400 MG/10 ML CUP PO PRN (09:41)
[2018-10-23] MEDS: FLUoxetine HCL 20 MG CAP PO SCH (09:42)
[2018-10-23] MEDS: ATORVASTATIN 20 MG TAB PO SCH (09:42)
[2018-10-23] MEDS: LACTULOSE 20 GM/30 ML CUP PO PRN (09:42)
[2018-10-23] MEDS: HEPARIN SODIUM,PORCINE 5,000 UNIT/ML 1 ML VIAL SQ SCH ×2 (09:42→20:23)
[2018-10-23] MEDS: ASPIRIN 81 MG PO SCH (09:42)
[2018-10-23] MEDS: PANTOPRAZOLE 40 MG TABLET PO SCH (09:42)
[2018-10-23] MEDS: predniSONE 20 MG TAB PO SCH (09:42)
[2018-10-23 13:04] VITALS: BMI 26.2
--- NOTE | 2018-10-23 16:44 | P.PN ---
Subjective Patient admitted for COPD exacerbation still wheezing but much better compared to yesterday. 10/17/2018 Patient was switched to IV steroids with pulmonology patient is saturating at 83% upon ambulation 10/18/2018 Patient was pretty status improved her wheezing improved today. 10/19/2018 Patient is still requiring oxygen upon ablation although her respiratory status significantly improved patient crackles no wheezing was appreciated today. 10/20/2018 Patient requests placement quite weak require subacute rehabilitation. 10/22/2018 Patient is awaiting disposition to subacute rehab, patient had an episode of shortness of breath last night because of which patient was given Lasix last night and today morning as well. Which led to intravascular depletion patient became tachycardic blood pressure dropped patient was lightheaded and patient went into renal failure patient will be started on IV fluids today. Chest x-ray did not show any pulmonary edema. Shortness of breath is probably related to her COPD itself. has hiatal hernia on the chest x-ray.Patient does have a elevated right hemidiaphragm 10/23/2018 Patient has significant wheezing today patient is bit short of breath today we'll continue with the breathing treatments inhalational treatments and systemic steroids. Patient is approved to go to rehab today Intravascularly depletion improved but her respiratory status is not good. I do not believe patient is ready to be discharged today Constitutional: Denied any fatigue denied any fever. Cardio vascular: denied any chest pain, palpitations Gastrointestinal denied any nausea vomiting Pulmonary: Shortness of breath improved Neurologic denied any new focal deficits All inpatient medications were reviewed and appropriate changes in these medications as dictated in the interval history and assessment and plan. Objective - Vital Signs Vital signs: Vital Signs Temp 97.4 F L 10/23/18 12:52 Pulse 100 10/23/18 16:08 Resp 16 10/23/18 12:52 BP 118/71 10/23/18 04:14 Pulse Ox 93 L 10/23/18 15:52 Intake & Output 10/22/18 10/23/18 10/23/18 18:59 06:59 18:59 Intake Total 600 850 850 Balance 600 850 850 Weight 71.53 kg 71.53 kg Intake: Intake, IV Titration 600 650 850 Amount Sodium Chloride 0.9% 1, 600 650 850 000 ml @ 75 mls/hr IV . [id number] [facility] Rx#:[id number] Oral 200 Other: Voiding Method Toilet Bedside Commode Bedside Commode Incontinent # Voids 4 1 3 # Bowel Movements 1 - Exam PHYSICAL EXAMINATION: GENERAL: The patient is alert and oriented x3, not in any acute distress. And built cachectic female HEENT pupils reacting to light. EOMI. No scleral icterus. No conjunctival pallor. Normocephalic, atraumatic. No pharyngeal erythema. No thyromegaly. CARDIOVASCULAR: S1 and S2 present. No murmurs, rubs, or gallops. PULMONARY: Significant expiratory wheezing no crackles or pain, no JVD ABDOMEN: Soft, nontender, nondistended, normoactive bowel sounds. No palpable organomegaly. MUSCULOSKELETAL: No joint swelling or deformity. EXTREMITIES: No cyanosis, clubbing, or pedal edema. NEUROLOGICAL: Gross neurological examination did not reveal any focal deficits. SKIN: No rashes. - Labs CBC & Chem 7: 10/22/18 07:24 10/23/18 07:21 Labs: Abnormal Lab Results - Last 24 Hours (Table) 10/23/18 Range/Units 07:21 Carbon Dioxide 34 H (22-30) mmol/L BUN 29 H (7-17) mg/dL Creatinine 1.15 H (0.52-1.04) mg/dL Glucose 69 L (74-99) mg/dL Total Protein 5.6 L (6.3-8.2) g/dL Albumin 3.2 L (3.5-5.0) g/dL Assessment and Plan Plan: COPD exacerbation: Patient will be continued on systemic steroids, inhalational treatments. Patient quit smoking many years ago, patient will be switched to oral steroids -Acute renal failure: Improved with IV fluids will repeat basic metabolic profile tomorrow - generalized weakness and deconditioning for which we'll obtain PT and OT consultation patient will not require any subacute rehabilitation -Hyperlipidemia -Hypothyroidism -Chronic anemia normocytic anemia probably anemia of chronic disease Patient will need pharmacologic GI and DVT prophylaxis For above-mentioned chronic medical problems emphysema and appropriate home medications.
[2018-10-24] MEDS: SODIUM CHLORIDE 0.9% 1,000 ML IV SCH (05:24)
[2018-10-24] MEDS: LEVOTHYROXINE 100 MCG TAB PO SCH (06:30)
[2018-10-24 07:48] LABS: Calcium 8.2 mg/dL (8.4-10.2); Potassium 4.8 mmol/L (3.5-5.1)
[2018-10-24] MEDS: SYMBICORT 80-4.5 MCG INHALER INHALATION SCH (08:38)
[2018-10-24] MEDS: IPRATROPIUM-ALBUTEROL 3 ML NEB INHALATION SCH ×2 (08:38→10:45)
[2018-10-24] MEDS: ATORVASTATIN 20 MG TAB PO SCH (08:53)
[2018-10-24] MEDS: DOXYCYCLINE 100 MG CAP PO SCH (08:53)
[2018-10-24] MEDS: PANTOPRAZOLE 40 MG TABLET PO SCH (08:53)
[2018-10-24] MEDS: HEPARIN SODIUM,PORCINE 5,000 UNIT/ML 1 ML VIAL SQ SCH (08:53)
[2018-10-24] MEDS: FLUoxetine HCL 20 MG CAP PO SCH (08:53)
[2018-10-24] MEDS: ASPIRIN 81 MG PO SCH (08:53)
[2018-10-24] MEDS: predniSONE 20 MG TAB PO SCH (08:53)
--- NOTE | 2018-10-24 10:25 | P.PN ---
Subjective Progress Note Date: 10/24/18 Principal diagnosis: Acute COPD exacerbation, hypothyroidism, shortness of breath, cough, dyslipidemia, 10/24/2018, patient seen eval reexamined during the rounds she is been recom mended to placement in extended care facility, denies any chest pain, still congested intermittent wheezing is present slightly better compared to yesterday 10/23/2018 patient seen eval reexamined during the rounds she is undergoing breathing treatment therapy denies any chest pain is still have congestion shortness of breath she is unable to walk to the bathroom without support, hemoglobin is up to 9.1 white cell count is slightly elevated patient developed hypotension with diuresis to Lasix has been discontinued 10/22/2018, patient seen eval reexamined resting in bed still have cough conge stion shortness of breath severity has not much change patient is a on oral steroids now labs reviewed medications reviewed x-ray chest reviewed as well showed the resolution of pleural effusion some left retrocardiac density due to hiatal hernia 10/21/2018, patient seen and evaluated examined during rounds she is doing slightly better but still have significant wheezing and congestion primary se rvice is thinking to change to IV steroids to by mouth, unable to ambulate due to shortness of breath 10/20/2018, patient seen eval reexamined during the rounds breathing comfortably still has some cough and congestion, due to weakness being considered for rehab continue to get breathing treatments and oral prednisone 10/19/2018, patient seen eval reexamined during the rounds still have ongoing cough congestion shortness of breath patient has generalized weakness with difficulty ambulation, patient is being ordered from extended care facility wheezing have slightly improved labs reviewed medications reviewed, chest x-ray suggestive of small effusion 10/18/2018, patient seen and evaluated examined during the rounds breathing is still harsh with bilateral wheezing cough and congestion is present slightly better than yesterday patient has been placed on IV steroids breathing treatment antibiotics 10/17/2018, patient seen and evaluated examined during the rounds is still congested and short of breath she is producing some phlegm now which is dark in color she cannot give exact details and she cannot sleep properly, she is wheezing intermittently care plan discussed with the daughter present at bedside 10/16/2018, patient seen and evaluated examined during the rounds still have a dry cough and shortness of breath intermittent wheezing is present patient is getting breathing treatment slightly improved compared to yesterday 88-year-old female who was seen evaluated examined observation, patient was admitted with the increased shortness of breath and low oxygen saturation she presented into emergency department with cough wheezing and low oxygen saturation are 88%, Patient does have history of COPD. She does nebulizer treatments at home and occasionally wears oxygen. Daughter reports that she woke from sleep this evening and seemed to be somewhat disoriented. States that she checked her oxygen saturation at home and was round 88% on room air. States that she usually runs between 95 and 96%. Patient states that she has had a cough, states she does have sputum production. She denies any fever or chills. States that she does feel generally weak. Denies any chest pain, abdominal pain, nausea, or vomiting. Denies any dizziness. Patient denies any recent rash, diarrhea, constipation, back pain, numbness, tingling, dizziness, weakness, hematuria, dysuria, urinary urgency, urinary frequency, headache, visual changes, or any other complaints. Objective - Vital Signs Vital signs: Vital Signs Temp 97.5 F L 10/24/18 04:52 Pulse 91 10/24/18 04:52 Resp 18 10/24/18 04:52 BP 143/77 10/24/18 04:52 Pulse Ox 98 10/24/18 04:52 Intake & Output 10/23/18 10/24/18 10/24/18 18:59 06:59 18:59 Intake Total 1390 1140 Balance 1390 1140 Weight 71.53 kg Intake: Intake, IV Titration 850 900 Amount Sodium Chloride 0.9% 1, 850 900 000 ml @ 75 mls/hr IV . [id number] [facility] Rx#:[id number] Oral 540 240 Other: Voiding Method Bedside Commode Bedside Commode Bedside Commode Diaper Diaper Incontinent Incontinent # Voids 2 3 # Bowel Movements 2 1 - Exam - Constitutional General appearance: average body habitus, disheveled, mild distress - EENT Eyes: EOMI, PERRLA, normal appearance ENT: normal oropharynx - Neck Neck: normal ROM Carotids: bilateral: upstroke normal Thyroid: bilateral: normal size - Respiratory Respiratory: bilateral: wheezing (During fours expiration), negative: CTA, diminished, dullness, rales, rhonchi, prolonged expiration, prolonged inspiration - Cardiovascular Rhythm: regular Heart sounds: normal: S1, S2 - Gastrointestinal General gastrointestinal: normal bowel sounds - Neurologic Neurologic: CNII-XII intact - Musculoskeletal Musculoskeletal: gait normal, generalized weakness, strength equal bilaterally - Psychiatric Psychiatric: A&O x's 3, appropriate affect, intact judgment & insight - Labs CBC & Chem 7: 10/22/18 07:24 10/24/18 07:01 Labs: Abnormal Lab Results - Last 24 Hours (Table) 10/24/18 Range/Units 07:01 Carbon Dioxide 31 H (22-30) mmol/L BUN 28 H (7-17) mg/dL Calcium 8.2 L (8.4-10.2) mg/dL Assessment and Plan Assessment: Acute COPD exacerbation Small left-sided pleural effusion, resolved Tracheobronchitis purulent in nature Acute hypoxic respiratory failure related to above Dyslipidemia Hypothyroidism Plan: Agree placement in rehab Continue breathing treatment A breathing exercise incentive spirometry Bronchodilator, breathing treatments and steroids Continue home medications Increase activity as tolerated Recommendations pending plan of care as per clinical response of the patient Time with Patient: Greater than 30
--- NOTE | 2018-10-24 12:17 | P.DS ---
Providers Date of admission: 10/15/18 13:01 Attending physician: Randy Neumann MD Consults: 10/15/18 12:40 Consult Physician Routine Consulting Provider: Humza Harper Consult Reason/Comments: COPD Do you want consulting provider notified?: Yes Primary care physician: Stated None Hospital Course: Patient admitted for COPD exacerbation still wheezing but much better compared to yesterday. 10/17/2018 Patient was switched to IV steroids with pulmonology patient is saturating at 83% upon ambulation 10/18/2018 Patient was pretty status improved her wheezing improved today. 10/19/2018 Patient is still requiring oxygen upon ablation although her respiratory status significantly improved patient crackles no wheezing was appreciated today. 10/20/2018 Patient requests placement quite weak require subacute rehabilitation. 10/22/2018 Patient is awaiting disposition to subacute rehab, patient had an episode of shortness of breath last night because of which patient was given Lasix last night and today morning as well. Which led to intravascular depletion patient became tachycardic blood pressure dropped patient was lightheaded and patient went into renal failure patient will be started on IV fluids today. Chest x-ray did not show any pulmonary edema. Shortness of breath is probably related to her COPD itself. has hiatal hernia on the chest x-ray.Patient does have a elevated right hemidiaphragm 10/23/2018 Patient has significant wheezing today patient is bit short of breath today we'll continue with the breathing treatments inhalational treatments and systemic steroids. Patient is approved to go to rehab today 10/24/2018 Patient's wheezing significant improved today patient completed antibiotic therapy for bronchitis patient will be discharged today to subacute rehabilitation. Patient creatinine improved. Blood pressure improved heart rate improved with IV fluids. PHYSICAL EXAMINATION: GENERAL: The patient is alert and oriented x3, not in any acute distress. And built cachectic female HEENT pupils reacting to light. EOMI. No scleral icterus. No conjunctival pallor. Normocephalic, atraumatic. No pharyngeal erythema. No thyromegaly. CARDIOVASCULAR: S1 and S2 present. No murmurs, rubs, or gallops. PULMONARY: good air entry without any wheezing today ABDOMEN: Soft, nontender, nondistended, normoactive bowel sounds. No palpable organomegaly. MUSCULOSKELETAL: No joint swelling or deformity. EXTREMITIES: No cyanosis, clubbing, or pedal edema. NEUROLOGICAL: Gross neurological examination did not reveal any focal deficits. SKIN: No rashes. Assessment and Plan Plan: COPD exacerbation: Patient will be continued on systemic steroids, inhalational treatments. Patient quit smoking many years ago, patient will be discharged on weaning dose of oral steroids. Patient is clinically doing well at this time but had this for readmission because of age and COPD. -Acute renal failure: improved with IV fluids - generalized weakness and deconditioning, patient is being discharged to subacute rehabilitation -Hyperlipidemia -Hypothyroidism -Chronic anemia normocytic anemia probably anemia of chronic disease Patient Condition at Discharge: Stable Plan - Discharge Summary Discharge Rx Participant: No New Discharge Prescriptions: New Ipratropium-Albuterol Nebulize [Duoneb 0.5 mg-3 mg/3 ml Soln] 3 ml INHALATION RT-Q4H PRN ampul.neb PRN Reason: Shortness Of Breath Or Wheezing predniSONE 10 mg PO DAILY #30 tab Continue Omeprazole 40 mg PO DAILY Folic Acid 1 mg PO DAILY Simvastatin 40 mg PO DAILY Fluticasone/Salmeterol [Advair 250-50 Diskus] 1 inhalation PO BID Cholecalciferol [Vitamin D3 (25 Mcg = 1000 Iu)] 1,000 unit PO DAILY Multivit with Calcium,Iron,Min [Women's Multivitamin] 1 each PO DAILY Glucosamine/Chondr Bonilla A Sod [Osteo Bi-Flex Caplet] 1 each PO DAILY Aspirin [Adult Low Dose Aspirin EC] 81 mg PO DAILY Cyanocobalamin (Vitamin B-12) [Vitamin B-12] 1,000 mcg PO DAILY Levothyroxine Sodium 100 mcg PO DAILY FLUoxetine HCL [PROzac] 20 mg PO DAILY Vit C/E/Zn/Coppr/Lutein/Zeaxan [Preservision Areds 2 Softgel] 1 cap PO BID Discontinued predniSONE 7.5 mg PO DAILY Discharge Medication List Aspirin [Adult Low Dose Aspirin EC] 81 mg PO DAILY 10/15/18 [History] Cholecalciferol [Vitamin D3 (25 Mcg = 1000 Iu)] 1,000 unit PO DAILY 10/15/18 [History] Cyanocobalamin (Vitamin B-12) [Vitamin B-12] 1,000 mcg PO DAILY 10/15/18 [History] FLUoxetine HCL [PROzac] 20 mg PO DAILY 10/15/18 [History] Fluticasone/Salmeterol [Advair 250-50 Diskus] 1 inhalation PO BID 10/15/18 [History] Folic Acid 1 mg PO DAILY 10/15/18 [History] Glucosamine/Chondr Bonilla A Sod [Osteo Bi-Flex Caplet] 1 each PO DAILY 10/15/18 [History] Levothyroxine Sodium 100 mcg PO DAILY 10/15/18 [History] Multivit with Calcium,Iron,Min [Women's Multivitamin] 1 each PO DAILY 10/15/18 [History] Omeprazole 40 mg PO DAILY 10/15/18 [History] Simvastatin 40 mg PO DAILY 10/15/18 [History] Vit C/E/Zn/Coppr/Lutein/Zeaxan [Preservision Areds 2 Softgel] 1 cap PO BID 10/15/18 [History] Ipratropium-Albuterol Nebulize [Duoneb 0.5 mg-3 mg/3 ml Soln] 3 ml INHALATION RT-Q4H PRN ampul.neb 10/21/18 [Rx] predniSONE 10 mg PO DAILY #30 tab 10/21/18 [Rx] Follow up Appointment(s)/Referral(s): Rogelio Benoit MD [STAFF PHYSICIAN] - 1 Week None,Stated [Primary Care Provider] - 1-2 days Humza Harper MD [STAFF PHYSICIAN] - 1 Week Discharge Disposition: TRANSFER TO SNF/ECF
[2018-10-24 12:26] VITALS: BP 131/60; PULSE 94; RESP 20; TEMP 97.9
== END 2018-10-24 14:45 | DRG 190 ==
LOC: EC 01:56 → 1SOBS 05:44 → OBSVTOIN 13:01 → 3NMEDONC 16:56
PROVIDERS: ADMIT Internal Medicine; ATTEND Internal Medicine
DX: J44.1 Chronic obstructive pulmonary disease with (acute) exacerbation (principal); J96.01 Acute respiratory failure with hypoxia; J90 Pleural effusion, not elsewhere classified; N17.9 Acute kidney failure, unspecified; R64 Cachexia; D63.8 Anemia in other chronic diseases classified elsewhere; E03.9 Hypothyroidism, unspecified; E78.5 Hyperlipidemia, unspecified; K44.9 Diaphragmatic hernia without obstruction or gangrene; K59.00 Constipation, unspecified; Z79.82 Long term (current) use of aspirin; Z79.890 Hormone replacement therapy; Z79.899 Other long term (current) drug therapy; Z87.891 Personal history of nicotine dependence; D50.9 Iron deficiency anemia, unspecified; Z68.26 Body mass index [BMI] 26.0-26.9, adult; Z79.52 Long term (current) use of systemic steroids; Z86.14 Personal history of Methicillin resistant Staphylococcus aureus infection; Z88.6 Allergy status to analgesic agent
CPT/HCPCS: 36415; 71045; 71046; 80048; 80053; 81003; 82607; 82728; 83605; 83735; 85025; 85027; 85610; 85730; 87040; 87086; 93005; 94640; 94760; 96374; 99285

== ENCOUNTER 2018-11-28 18:24 | Inpatient (IN) | payer MEDICARE, BC ==
[2018-11-28] MEDS ORDERED: SODIUM CHLORIDE 0.9% 1,000 ML IV STA (18:33)
[2018-11-28] MEDS ORDERED: IPRATROPIUM-ALBUTEROL 3 ML NEB INHALATION STA (18:33)
[2018-11-28 19:07] LABS: Anisocytosis Slight; Basophils # (A) 0.1 k/uL (0-0.2); Basophils % (A) 1 %; Eosinophils # (A) 0.1 k/uL (0-0.7); Eosinophils % (A) 2 %; HCT 28.5 % (34.0-46.0); HGB 8.5 gm/dL (11.4-16.0); Hypochromasia Marked; Lymphocytes # (A) 1.3 k/uL (1.0-4.8); Lymphocytes % (A) 22 %; MCH 26.3 pg (25.0-35.0); MCHC 29.9 g/dL (31.0-37.0); MCV 87.9 fL (80.0-100.0); Mean Platelet Volume 7.7; Monocytes # (A) 0.5 k/uL (0-1.0); Monocytes % (A) 8 %; Neutrophils % (A) 64 %; Platelet Count 321 k/uL (150-450); RBC 3.24 m/uL (3.80-5.40); RDW 19.5 % (11.5-15.5); WBC 6.2 k/uL (3.8-10.6)
[2018-11-28 19:18] LABS: Albumin 2.4 g/dL (3.5-5.0); Calcium 8.3 mg/dL (8.4-10.2); Magnesium 1.7 mg/dL (1.6-2.3); Potassium 3.4 mmol/L (3.5-5.1); Total Bilirubin 0.3 mg/dL (0.2-1.3); Total Protein 4.9 g/dL (6.3-8.2)
[2018-11-28 19:28] LABS: Prothrombin Time 10.9 sec (9.0-12.0)
--- NOTE | 2018-11-28 19:36 | XR ---
EXAMINATION TYPE: XR chest 2V DATE OF EXAM: 11/28/2018 COMPARISON: 10/22/2018 HISTORY: Difficulty breathing TECHNIQUE: Frontal and lateral views of the chest are obtained. FINDINGS: There is coarsening of interstitial pulmonary markings. There are chest leads. Heart size is normal. There is no definite pleural effusion. Thoracic aorta is atheromatous. IMPRESSION: There is new pulmonary interstitial edema compared to old exam that could relate to acut e heart failure.
[2018-11-28 19:57] LABS: Partial Thromboplastin Time 18.4 sec (22.0-30.0)
--- NOTE | 2018-11-28 20:25 | ED ---
SOB HPI - General Chief Complaint: Shortness of Breath Stated Complaint: SOB Time Seen by Provider: 11/28/18 18:25 Source: patient, EMS, RN notes reviewed Mode of arrival: EMS Limitations: no limitations - History of Present Illness Initial Comments: This is a 87-year-old female who was transferred from care home for evaluation of pneumonia and was on x-ray done earlier today. The patient does complain shortness of breath for the past 2 days. No overt chest pain she denies any fevers chills or sweats no dysuria hematuria or other symptoms repor delfin CESAR Complaint: shortness of breath, cough - Related Data Home Medications Medication Instructions Recorded Confirmed Aspirin [Adult Low Dose Aspirin EC] 81 mg PO DAILY@169910/15/18 11/28/18 Cholecalciferol [Vitamin D3 (25 1,000 unit PO DAILY@169910/15/18 11/28/18 Mcg = 1000 Iu)] FLUoxetine HCL [PROzac] 20 mg PO DAILY@0810/15/18 11/28/18 Fluticasone/Salmeterol [Advair 1 puff INHALATION RT-BID@0800,169910/15/18 11/28/18 250-50 Diskus] Folic Acid 1 mg PO DAILY@169910/15/18 11/28/18 Glucosamine/Chondr Bonilla A Sod [Osteo 1 tab PO DAILY@169910/15/18 11/28/18 Bi-Flex Caplet] Levothyroxine Sodium 100 mcg PO DAILY@0600 10/15/18 11/28/18 Multivit with Calcium,Iron,Min 1 tab PO DAILY@169910/15/18 11/28/18 [Women's Multivitamin] Simvastatin 40 mg PO DAILY@0800 10/15/18 11/28/18 Vit C/E/Zn/Coppr/Lutein/Zeaxan 1 cap PO BID@0800,1700 10/15/18 11/28/18 [Preservision Areds 2 Softgel] Albuterol Nebulized [Ventolin 2.5 mg INHALATION RT-Q4H PRN 11/28/18 11/28/18 Nebulized] Bisacodyl [Dulcolax] 10 mg RECTAL DAILY PRN 11/28/18 11/28/18 Doxycycline Hyclate 100 mg PO BID@0800,2100 11/28/18 11/28/18 Doxycycline Hyclate 100 mg PO ONCE 11/28/18 11/28/18 Ferrous Sulfate [Feosol] 325 mg PO BID@0800,1700 11/28/18 11/28/18 Fluorouracil [Efudex] 1 applic TOPICAL BID@0800,2100 11/28/18 11/28/18 Ipratropium-Albuterol Nebulize 3 ml INHALATION RT-Q4H PRN 11/28/18 11/28/18 [Duoneb 0.5 mg-3 mg/3 ml Soln] Ipratropium-Albuterol Nebulize 3 ml INHALATION RT-QID 11/28/18 11/28/18 [Duoneb 0.5 mg-3 mg/3 ml Soln] Magnesium Hydroxide [Milk of 7,200 mg PO DAILY PRN 11/28/18 11/28/18 Magnesia Concentrate] Na Phos,M-B/Na Phos,Di-Ba [Fleet 133 ml RECTAL ONCE PRN 11/28/18 11/28/18 Adult] Omeprazole 40 mg PO DAILY@0600 11/28/18 11/28/18 guaiFENesin [Mucinex] 600 mg PO BID@0800,209911/28/18 11/28/18 Allergies Allergy/AdvReac Type Severity Reaction Status Date / Time naproxen [From Naprosyn] AdvReac Rash/Hives Verified 11/28/18 19:08 Review of Systems ROS Statement: Those systems with pertinent positive or pertinent negative responses have been documented in the HPI. ROS Other: All systems not noted in ROS Statement are negative. 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 Limitations: no limitations General appearance: alert, lethargic Head exam: Present: atraumatic, normocephalic, normal inspection Eye exam: Present: normal appearance, PERRL, EOMI. Absent: scleral icterus, conjunctival injection, periorbital swelling ENT exam: Present: mucous membranes dry Neck exam: Present: normal inspection, full ROM, other (No stridor JVD or bruits). Absent: tenderness, meningismus, lymphadenopathy Respiratory exam: Present: rhonchi (Lower lobe), decreased breath sounds. Absent: respiratory distress, wheezes, rales, stridor Cardiovascular Exam: Present: regular rate, normal rhythm, normal heart sounds. Absent: systolic murmur, diastolic murmur, rubs, gallop, clicks GI/Abdominal exam: Present: soft, normal bowel sounds. Absent: distended, tenderness, guarding, rebound, rigid Extremities exam: Present: normal inspection, full ROM, normal capillary refill. Absent: tenderness, pedal edema, joint swelling, calf tenderness Back exam: Present: normal inspection Neurological exam: Present: alert, oriented X3, CN II-XII intact Psychiatric exam: Present: normal affect, normal mood Skin exam: Present: warm, dry, intact, normal color. Absent: rash Course Vital Signs 11/28/18 11/28/18 11/28/18 18:26 18:33 18:47 Temperature 98.7 F Pulse Rate 75 107 H Respiratory 16 16 16 Rate Blood Pressure 102/51 O2 Sat by Pulse 100 Oximetry 11/28/18 11/28/18 19:03 19:43 Temperature Pulse Rate 102 H 107 H Respiratory 16 18 Rate Blood Pressure 107/56 O2 Sat by Pulse 96 Oximetry Medical Decision Making - Medical Decision Making Reevaluation patient reveals diminished breath sounds with wheezes and right lower lobe crepitus. Discussed the findings with the patient's family and the patient patient will be admitted I did discuss the case with Dr. Saab. The presentation is consistent with pneumonitis and COPD exacerbation. Dr. Harper will be consulted - Lab Data Result diagrams: 11/28/18 18:36 11/28/18 18:36 Lab Results 11/28/18 11/28/18 11/28/18 Range/Units 18:36 18:36 18:36 WBC 6.2 (3.8-10.6) k/uL RBC 3.24 L (3.80-5.40) m/uL Hgb 8.5 L (11.4-16.0) gm/dL Hct 28.5 L (34.0-46.0) % MCV 87.9 (80.0-100.0) fL MCH 26.3 (25.0-35.0) pg MCHC 29.9 L (31.0-37.0) g/dL RDW 19.5 H (11.5-15.5) % Plt Count 321 (150-450) k/uL Neutrophils % 64 % Lymphocytes % 22 % Monocytes % 8 % Eosinophils % 2 % Basophils % 1 % Neutrophils # 4.0 (1.3-7.7) k/uL Lymphocytes # 1.3 (1.0-4.8) k/uL Monocytes # 0.5 (0-1.0) k/uL Eosinophils # 0.1 (0-0.7) k/uL Basophils # 0.1 (0-0.2) k/uL Hypochromasia Marked Anisocytosis Slight PT (9.0-12.0) sec INR (<1.2) APTT (22.0-30.0) sec Sodium 136 L (137-145) mmol/L Potassium 3.4 L (3.5-5.1) mmol/L Chloride 102 (98-107) mmol/L Carbon Dioxide 24 (22-30) mmol/L Anion Gap 10 mmol/L BUN 9 (7-17) mg/dL Creatinine 0.69 (0.52-1.04) mg/dL Est GFR (CKD-EPI)AfAm 89 (>60 ml/min/1.73 sqM) Est GFR (CKD-EPI)NonAf 78 (>60 ml/min/1.73 sqM) Glucose 70 L (74-99) mg/dL Plasma Lactic Acid Jamie (0.7-2.0) mmol/L Calcium 8.3 L (8.4-10.2) mg/dL Magnesium 1.7 (1.6-2.3) mg/dL Total Bilirubin 0.3 (0.2-1.3) mg/dL AST 26 (14-36) U/L ALT 17 (9-52) U/L Alkaline Phosphatase 66 (38-126) U/L Creatine Kinase 53 (30-135) U/L Troponin I (0.000-0.034) ng/mL NT-Pro-B Natriuret Pep 377 pg/mL Total Protein 4.9 L (6.3-8.2) g/dL Albumin 2.4 L (3.5-5.0) g/dL 11/28/18 11/28/18 11/28/18 Range/Units 18:36 18:36 18:36 WBC (3.8-10.6) k/uL RBC (3.80-5.40) m/uL Hgb (11.4-16.0) gm/dL Hct (34.0-46.0) % MCV (80.0-100.0) fL MCH (25.0-35.0) pg MCHC (31.0-37.0) g/dL RDW (11.5-15.5) % Plt Count (150-450) k/uL Neutrophils % % Lymphocytes % % Monocytes % % Eosinophils % % Basophils % % Neutrophils # (1.3-7.7) k/uL Lymphocytes # (1.0-4.8) k/uL Monocytes # (0-1.0) k/uL Eosinophils # (0-0.7) k/uL Basophils # (0-0.2) k/uL Hypochromasia Anisocytosis PT 10.9 (9.0-12.0) sec INR 1.0 (<1.2) APTT 18.4 L (22.0-30.0) sec Sodium (137-145) mmol/L Potassium (3.5-5.1) mmol/L Chloride (98-107) mmol/L Carbon Dioxide (22-30) mmol/L Anion Gap mmol/L BUN (7-17) mg/dL Creatinine (0.52-1.04) mg/dL Est GFR (CKD-EPI)AfAm (>60 ml/min/1.73 sqM) Est GFR (CKD-EPI)NonAf (>60 ml/min/1.73 sqM) Glucose (74-99) mg/dL Plasma Lactic Acid Jamie 1.0 (0.7-2.0) mmol/L Calcium (8.4-10.2) mg/dL Magnesium (1.6-2.3) mg/dL Total Bilirubin (0.2-1.3) mg/dL AST (14-36) U/L ALT (9-52) U/L Alkaline Phosphatase (38-126) U/L Creatine Kinase (30-135) U/L Troponin I <0.012 (0.000-0.034) ng/mL NT-Pro-B Natriuret Pep pg/mL Total Protein (6.3-8.2) g/dL Albumin (3.5-5.0) g/dL - EKG Data -: EKG Interpreted by Me EKG shows normal: sinus rhythm (Sinus tachycardia 108. Interval 132 QRS duration 80 QT since QTC 352/471) - Radiology Data Radiology results: report reviewed (I did review the imaging there is evidence of right lower some left lower increased markings in the considered), image re viewed Disposition Clinical Impression: Pneumonia, Acute exacerbation of chronic obstructive airways disease Disposition: ADMITTED IP TO THIS HOSP Condition: Fair Referrals: Neisha Mclaughlin MD [Primary Care Provider] - 1-2 days
[2018-11-28] MEDS ORDERED: PNEUMONIA PROTOCOL UTILIZED 1 EACH MISC PO PRN (21:08)
[2018-11-28] MEDS ORDERED: AZITHROMYCIN 500 MG in SODIUM CHLORIDE 0.9% 250 ML IVPB STA (21:08)
[2018-11-28] MEDS ORDERED: BISACODYL 10 MG SUPP RECTAL PRN (21:10)
[2018-11-28] MEDS ORDERED: MAGNESIUM HYDROXIDE 2,400 MG/10 ML CUP PO PRN (21:10)
[2018-11-28] MEDS ORDERED: NA PHOS,M-B/NA PHOS,DI-BA 133 ML ENEMA RECTAL PRN (21:10)
[2018-11-28] MEDS: SODIUM CHLORIDE 0.9% 1,000 ML IV SCH (21:35)
[2018-11-28 22:24] LABS: Appearance,Urine Cloudy (Clear); Bilirubin,Urine Negative (Negative); Blood,Urine Negative (Negative); Color,Urine Yellow; Glucose,Urine (UA) Negative (Negative); Hyaline Casts,Urine 4 /lpf (0-2); Ketones,Urine 3+ (Negative); Leukocyte Esterase,Urine Large (Negative); Mucus,Urine Rare /hpf; Nitrite,Urine Negative (Negative); Protein,Urine 1+ (Negative); RBC,Urine 6 /hpf (0-5); Specific Gravity,Urine 1.013 (1.001-1.035); Squamous Epithelial Cell,Urine 9 /hpf (0-4); Urobilinogen,Urine <2.0 mg/dL (<2.0)
[2018-11-28] MEDS ORDERED: IPRATROPIUM-ALBUTEROL 3 ML NEB INHALATION PRN (23:59)
[2018-11-29] MEDS ORDERED: IPRATROPIUM-ALBUTEROL 3 ML NEB INHALATION SCH
[2018-11-29] MEDS ORDERED: POTASSIUM CHLORIDE ER 20 MEQ TAB.ER PO STA (00:27)
--- NOTE | 2018-11-29 01:03 | P.HPIM ---
History of Present Illness H&P Date: 11/28/18 Chief Complaint: Coughing 88-year-old female with history of COPD hyperthyroid Patient was sent into the hospital from long term facility where she is placed for rehab since her last admission to the hospital over a month ago for COPD exacerbation. She was sent in due to coughing this been worsening over the past 2 days with some chills, x-ray was done at the rehab center which suggested pneumonia for which patient was sent to the hospital for further treatment. Ulisses raya reports annoying cough productive of yellowish sputum, denies any fever but admits to chills denies any chest pain. She was feeling sick and tired denies any sore throat or runny nose denies any muscle aches or bone aches. She was sent to the hospital to get treated for pneumonia Patient otherwise denies any GI bleeding or chest pain or abdominal pain denies any nausea or vomiting. Patient admits to frequent falling. Review of Systems Pertinent positives as noted in HPI. 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, Past Psychological History: No Psychological Hx Reported Smoking Status: Former smoker Past Alcohol Use History: None Reported Past Drug Use History: None Reported - Past Family History Mother History Unknown: Yes Medications and Allergies Home Medications Medication Instructions Recorded Confirmed Type Aspirin [Adult Low Dose Aspirin EC] 81 mg PO DAILY@169910/15/18 11/28/18 History Cholecalciferol [Vitamin D3 (25 1,000 unit PO DAILY@169910/15/18 11/28/18 History Mcg = 1000 Iu)] FLUoxetine HCL [PROzac] 20 mg PO DAILY@0810/15/18 11/28/18 History Fluticasone/Salmeterol [Advair 1 puff INHALATION RT-BID@0800,0 10/15/18 11/28/18 History 250-50 Diskus] Folic Acid 1 mg PO DAILY@169910/15/18 11/28/18 History Glucosamine/Chondr Bonilla A Sod [Osteo 1 tab PO DAILY@1700 10/15/18 11/28/18 History Bi-Flex Caplet] Levothyroxine Sodium 100 mcg PO DAILY@0600 10/15/18 11/28/18 History Multivit with Calcium,Iron,Min 1 tab PO DAILY@1700 10/15/18 11/28/18 History [Women's Multivitamin] Simvastatin 40 mg PO DAILY@0800 10/15/18 11/28/18 History Vit C/E/Zn/Coppr/Lutein/Zeaxan 1 cap PO BID@0800,1700 10/15/18 11/28/18 History [Preservision Areds 2 Softgel] Albuterol Nebulized [Ventolin 2.5 mg INHALATION RT-Q4H PRN 11/28/18 11/28/18 History Nebulized] Bisacodyl [Dulcolax] 10 mg RECTAL DAILY PRN 11/28/18 11/28/18 History Doxycycline Hyclate 100 mg PO BID@0800,209911/28/18 11/28/18 History Doxycycline Hyclate 100 mg PO ONCE 11/28/18 11/28/18 History Ferrous Sulfate [Feosol] 325 mg PO BID@0800,1700 11/28/18 11/28/18 History Fluorouracil [Efudex] 1 applic TOPICAL BID@0800,209911/28/18 11/28/18 History Ipratropium-Albuterol Nebulize 3 ml INHALATION RT-Q4H PRN 11/28/18 11/28/18 History [Duoneb 0.5 mg-3 mg/3 ml Soln] Ipratropium-Albuterol Nebulize 3 ml INHALATION RT-QID 11/28/18 11/28/18 History [Duoneb 0.5 mg-3 mg/3 ml Soln] Magnesium Hydroxide [Milk of 7,200 mg PO DAILY PRN 11/28/18 11/28/18 History Magnesia Concentrate] Na Phos,M-B/Na Phos,Di-Ba [Fleet 133 ml RECTAL ONCE PRN 11/28/18 11/28/18 History Adult] Omeprazole 40 mg PO DAILY@0600 11/28/18 11/28/18 History guaiFENesin [Mucinex] 600 mg PO BID@0800,2100 11/28/18 11/28/18 History Allergies Allergy/AdvReac Type Severity Reaction Status Date / Time naproxen [From Naprosyn] AdvReac Rash/Hives Verified 11/28/18 19:08 Physical Exam Vitals: Vital Signs Temp Pulse Resp BP Pulse Ox 11/28/18 21:21 105 H 18 115/62 100 11/28/18 19:43 107 H 18 107/56 96 11/28/18 19:03 102 H 16 11/28/18 18:47 107 H 16 11/28/18 18:33 16 11/28/18 18:26 98.7 F 75 16 102/51 100 Intake and Output 11/28/18 11/28/18 11/28/18 06:59 14:59 22:59 Other: Weight 74.389 kg Constitutional: No acute distress, conversant, pleasant Eyes: Anicteric sclerae, moist conjunctiva, no lid-lag Pupils equal round reactive to light ENMT: NC/AT Oropharynx clear, wearing dentures, dry mucus membranes , no erythema, no exudates Neck: Supple, FROM, no masses, or JVD No carotid bruits No thyromegaly Lungs: Clear to auscultation Clear to percussion Normal respiratory effort, no accessory muscle use Cardiovascular: Heart regular in rate and rhythm, systolic murmurs, gallops, or rubs No peripheral edema, very mild pedal edema Abdominal: Soft Nontender, no guarding, rebound or rigidity Abdomen moving with respiration Normoactive bowel sounds No hepatomegaly, No splenomegaly No palpable mass No abdominal wall hernia noted Skin: diffuse bruising over bilateral legs Normal temperature, tone, texture, turgor No induration No subcutaneous nodules No ulcers Extremities: right leg seems to be slightly bigger than left leg No digital cyanosis No clubbing Pedal pulses intact and symmetrical Radial pulses intact and symmetrical No calf tenderness Psychiatric: Alert and oriented to person only Appropriate affect fair judgment Neuro Muscles Strength 4/5 in all 4 extremities Sensation to light touch grossly present throughout Cranial nerves II-XII grossly intact No focal sensory deficits Lymphatics: no palpable cervical or supraclavicular , or inguinal lymph nodes Results CBC & Chem 7: 11/28/18 18:36 11/28/18 18:36 Labs: Abnormal Lab Results - Last 24 Hours (Table) 11/28/18 11/28/18 11/28/18 Range/Units 18:36 18:36 18:36 RBC 3.24 L (3.80-5.40) m/uL Hgb 8.5 L (11.4-16.0) gm/dL Hct 28.5 L (34.0-46.0) % MCHC 29.9 L (31.0-37.0) g/dL RDW 19.5 H (11.5-15.5) % APTT 18.4 L (22.0-30.0) sec Sodium 136 L (137-145) mmol/L Potassium 3.4 L (3.5-5.1) mmol/L Glucose 70 L (74-99) mg/dL Calcium 8.3 L (8.4-10.2) mg/dL Total Protein 4.9 L (6.3-8.2) g/dL Albumin 2.4 L (3.5-5.0) g/dL Assessment and Plan Assessment: 88 year old female with history o f COPD, admitted as inpatient with anticipated length of stay >48 hours due to pneumonia , she is a currently at [facility] for rehab , recently hospitalized >1 month ago for COPD exacerbation Plan: community acquired pneumonia hypokalemia chronic conditions chronic anemia history of COPD advanced age debility hypothyroid moderate protein calorie malnutrition started on empiric ABx with rocephine and azithro IVF hydration symptomatic control of her coughing continue home meds DVT PPX heparin sc tid fall precautions Preformed a thorough record review from recent hospitalization >1 month ago hospitalized for COPD exacerbation Surrogate decision-maker: daughter CODE STATUS:fulll code Discussed with: Patient, ER, RN Anticipated discharge: 48-[address]: [facility] A total of 60 minutes was spent on the care of this complex patient more than 50% of the time was spent in counseling and care coordination.
[2018-11-29] MEDS: LEVOTHYROXINE 100 MCG TAB PO SCH (05:23)
[2018-11-29] MEDS: PANTOPRAZOLE 40 MG TABLET PO SCH (05:23)
[2018-11-29] MEDS: FLUOROURACIL TOPICAL SCH ×2 (07:20→20:43)
[2018-11-29] MEDS: FLUoxetine HCL 20 MG CAP PO SCH (07:21)
[2018-11-29] MEDS: FERROUS SULFATE 325 MG TAB PO SCH ×2 (07:21→17:46)
[2018-11-29] MEDS: ATORVASTATIN 20 MG TAB PO SCH (07:22)
[2018-11-29] MEDS: guaiFENesin 600 MG TABLET.ER PO SCH ×2 (07:22→20:43)
[2018-11-29] MEDS: SYMBICORT 80-4.5 MCG INHALER INHALATION SCH ×2 (07:50→19:33)
[2018-11-29] MEDS: IPRATROPIUM-ALBUTEROL 3 ML NEB INHALATION SCH ×4 (07:50→19:33)
[2018-11-29] MEDS ORDERED: NON-FORMULARY DRUG (Vit C/E/Zn/Coppr/Lutein/Zeaxan [Preservision Areds 2 Softgel] 1 CAP) PO SCH (08:00)
[2018-11-29] MEDS ORDERED: SYMBICORT 80-4.5 MCG INHALER INHALATION SCH (08:00)
[2018-11-29 08:17] LABS: Anisocytosis Slight; Basophils # (A) 0.1 k/uL (0-0.2); Basophils % (A) 1 %; Eosinophils # (A) 0.2 k/uL (0-0.7); Eosinophils % (A) 3 %; HCT 28.5 % (34.0-46.0); HGB 8.4 gm/dL (11.4-16.0); Hypochromasia Marked; Lymphocytes # (A) 1.4 k/uL (1.0-4.8); Lymphocytes % (A) 25 %; MCH 25.7 pg (25.0-35.0); MCHC 29.3 g/dL (31.0-37.0); MCV 87.9 fL (80.0-100.0); Mean Platelet Volume 6.7; Monocytes # (A) 0.5 k/uL (0-1.0); Monocytes % (A) 9 %; Neutrophils # (A) 3.3 k/uL (1.3-7.7); Neutrophils % (A) 58 %; Platelet Count 337 k/uL (150-450); RBC 3.25 m/uL (3.80-5.40); RDW 19.7 % (11.5-15.5); WBC 5.8 k/uL (3.8-10.6)
[2018-11-29 08:34] LABS: Albumin 2.4 g/dL (3.5-5.0); Calcium 8.5 mg/dL (8.4-10.2); Potassium 3.9 mmol/L (3.5-5.1); Total Bilirubin 0.2 mg/dL (0.2-1.3)
--- NOTE | 2018-11-29 08:37 | P.CNPUL ---
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 she has been in rehab for last 2 days has increased cough congestion and purulent sputum production with those problems and x-ray was checked in the rehab showed pneumonia patient was sent over here for further evaluation x-ray performed in the emergency department showed right-sided prominent interstitial marking suggestive of patchy right-sided pneumonia, patient has been started on bronchodilator broad-spectrum antibiotics and continued on her home medications and admitted into the hospital feeling slightly better compared to last 2 days Review of Systems All systems: negative Past Medical History Past Medical History: COPD, Hyperlipidemia, Thyroid Disorder Additional Past Medical History / Comment(s): anemic, skin CA, History of Any Multi-Drug Resistant Organisms: MRSA Date of last positivie culture/infection: 2006 MDRO Source:: skin Additional Past Surgical History / Comment(s): 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, Past Psychological History: No Psychological Hx Reported Smoking Status: Former smoker Past Alcohol Use History: None Reported Past Drug Use History: None Reported - Past Family History Mother History Unknown: Yes Medications and Allergies Home Medications Medication Instructions Recorded Confirmed Type Aspirin [Adult Low Dose Aspirin EC] 81 mg PO DAILY@169910/15/18 11/28/18 History Cholecalciferol [Vitamin D3 (25 1,000 unit PO DAILY@169910/15/18 11/28/18 History Mcg = 1000 Iu)] FLUoxetine HCL [PROzac] 20 mg PO DAILY@0810/15/18 11/28/18 History Fluticasone/Salmeterol [Advair 1 puff INHALATION RT-BID@0800,1700 10/15/18 11/28/18 History 250-50 Diskus] Folic Acid 1 mg PO DAILY@169910/15/18 11/28/18 History Glucosamine/Chondr Bonilla A Sod [Osteo 1 tab PO DAILY@169910/15/18 11/28/18 History Bi-Flex Caplet] Levothyroxine Sodium 100 mcg PO DAILY@0600 10/15/18 11/28/18 History Multivit with Calcium,Iron,Min 1 tab PO DAILY@1700 10/15/18 11/28/18 History [Women's Multivitamin] Simvastatin 40 mg PO DAILY@0800 10/15/18 11/28/18 History Vit C/E/Zn/Coppr/Lutein/Zeaxan 1 cap PO BID@0800,1700 10/15/18 11/28/18 History [Preservision Areds 2 Softgel] Albuterol Nebulized [Ventolin 2.5 mg INHALATION RT-Q4H PRN 11/28/18 11/28/18 History Nebulized] Bisacodyl [Dulcolax] 10 mg RECTAL DAILY PRN 11/28/18 11/28/18 History Doxycycline Hyclate 100 mg PO BID@0800,209911/28/18 11/28/18 History Doxycycline Hyclate 100 mg PO ONCE 11/28/18 11/28/18 History Ferrous Sulfate [Feosol] 325 mg PO BID@0800,1700 11/28/18 11/28/18 History Fluorouracil [Efudex] 1 applic TOPICAL BID@0800,209911/28/18 11/28/18 History Ipratropium-Albuterol Nebulize 3 ml INHALATION RT-Q4H PRN 11/28/18 11/28/18 History [Duoneb 0.5 mg-3 mg/3 ml Soln] Ipratropium-Albuterol Nebulize 3 ml INHALATION RT-QID 11/28/18 11/28/18 History [Duoneb 0.5 mg-3 mg/3 ml Soln] Magnesium Hydroxide [Milk of 7,200 mg PO DAILY PRN 11/28/18 11/28/18 History Magnesia Concentrate] Na Phos,M-B/Na Phos,Di-Ba [Fleet 133 ml RECTAL ONCE PRN 11/28/18 11/28/18 History Adult] Omeprazole 40 mg PO DAILY@0600 11/28/18 11/28/18 History guaiFENesin [Mucinex] 600 mg PO BID@0800,209911/28/18 11/28/18 History Allergies Allergy/AdvReac Type Severity Reaction Status Date / Time naproxen [From Naprosyn] AdvReac Rash/Hives Verified 11/28/18 19:08 Physical Exam Vitals: Vital Signs Temp Pulse Pulse Resp BP BP Pulse Ox 11/29/18 07:50 104 H 98 11/29/18 07:40 86 L 11/29/18 04:25 98.2 F 101 H 20 115/69 99 11/28/18 23:00 98.0 F 107 H 20 126/68 95 11/28/18 21:21 105 H 18 115/62 100 11/28/18 19:43 107 H 18 107/56 96 11/28/18 19:03 102 H 16 11/28/18 18:47 107 H 16 11/28/18 18:33 16 11/28/18 18:26 98.7 F 75 16 102/51 100 Intake and Output 11/28/18 11/29/18 11/29/18 22:59 06:59 14:59 Other: Voiding Method Bedpan # Voids 2 Weight 74.389 kg - Constitutional General appearance: average body habitus, cooperative, disheveled - EENT Eyes: EOMI, PERRLA, normal appearance ENT: normal oropharynx Ears: bilateral: normal - Neck Carotids: bilateral: upstroke normal, bruit absent Thyroid: bilateral: normal size - Respiratory Respiratory: bilateral: diminished, negative: dullness, rales, rhonchi, wheezing, prolonged expiration - Cardiovascular Rhythm: regular Heart sounds: normal: S1, S2 - Gastrointestinal General gastrointestinal: decreased bowel sounds, soft - Neurologic Neurologic: CNII-XII intact - Musculoskeletal Musculoskeletal: gait normal, generalized weakness, strength equal bilaterally - Psychiatric Psychiatric: A&O x's 3, appropriate affect, intact judgment & insight Results - Laboratory Findings CBC and BMP: 11/29/18 07:37 11/29/18 07:37 PT/INR, D-dimer PT 10.9 sec (9.0-12.0) 11/28/18 18:36 INR 1.0 (<1.2) 11/28/18 18:36 Abnormal lab findings: Abnormal Labs 11/28/18 11/28/18 11/28/18 18:36 18:36 18:36 RBC 3.24 L Hgb 8.5 L Hct 28.5 L MCHC 29.9 L RDW 19.5 H APTT 18.4 L Sodium 136 L Potassium 3.4 L Glucose 70 L Calcium 8.3 L Total Protein 4.9 L Albumin 2.4 L Urine Appearance Urine Protein Urine Ketones Ur Leukocyte Esterase Urine RBC Urine WBC Urine WBC Clumps Ur Squamous Epith Cells Hyaline Casts Urine Mucus 11/28/18 22:00 RBC Hgb Hct MCHC RDW APTT Sodium Potassium Glucose Calcium Total Protein Albumin Urine Appearance Cloudy H Urine Protein 1+ H Urine Ketones 3+ H Ur Leukocyte Esterase Large H Urine RBC 6 H Urine WBC >182 H Urine WBC Clumps Occasional H Ur Squamous Epith Cells 9 H Hyaline Casts 4 H Urine Mucus Rare H - Diagnostic Findings Chest x-ray: report reviewed, image reviewed (Findings as noted above) Assessment and Plan Assessment: Right-sided patchy pneumonia Urinary tract infection Acute COPD exacerbation Chronic anemia Hypokalemia Protein calorie malnourishment Plan: Breathing treatments Antibiotics Improve nutrition Urine for culture and sensitivity Further recommendations pending plan of care as per response of the patient Time with Patient: Greater than 30
--- NOTE | 2018-11-29 13:21 | XR ---
EXAMINATION TYPE: XR chest 2V DATE OF EXAM: 11/29/2018 HISTORY: pneumonia. REFERENCE: Previous study dated 11/28/2018. FINDINGS: There are small, bilateral effusions. There is some airspace disease in the posterior costo phrenic sulcus. Heart size upper limits of normal. There is mild thickening of the bronchus intermedi us suggesting mild interstitial change. IMPRESSION: 1. SMALL, BILATERAL EFFUSIONS. 2. LEFT BASILAR AIRSPACE DISEASE. 3. MILD INTERSTITIAL CHANGE SUGGESTIVE OF MILD INTERSTITIAL EDEMA.
--- NOTE | 2018-11-29 13:33 | P.PN ---
Subjective Progress Note Date: 11/29/18 Patient is a 88-year-old female with a PMH of memory impairment, COPD, hypothyroidism, and hyperlipidemia who presented to the ED from rehab facility for shortness of breath and productive cough. The patient was recently admitted to the hospital for COPD exacerbation. The patient had reported 2 days of SOB and had undergone a CXR at the rehab facility which showed possible pneumonia. The patient was thereby sent to [facility] ED. CXR showed mild interstitial edema and airspace disease. The patient's UA was also consistent with a UTI. She was thereby admitted for management of acute COPD exacerbation, pneumonia, and UTI. She was seen and examined at the bedside on 11/29/18. She endorsed SOB ongonig for past few days. She notes feeling weak and not like hersef. She denied chest pain, fever, or chills. Also denied abd pain, nausea, vomiting, or dysuria. The patient was however oriented only to self, and knew she was in a hospital though couldn't say the name. Objective - Vital Signs Vital signs: Vital Signs Temp 98.2 F 11/29/18 04:25 Pulse 103 H 11/29/18 11:22 Resp 20 11/29/18 08:24 BP 115/69 11/29/18 04:25 Pulse Ox 98 11/29/18 07:50 Intake & Output 11/28/18 11/29/18 11/29/18 18:59 06:59 18:59 Weight 74.389 kg Other: Voiding Method Bedpan # Voids 2 - Exam General: Non-toxic, elderly female, in no acute distress, appears stated age HEENT: NC/AT, anicteric sclerae, moist conjunctiva, no lid-lag, PERRLA Cardiovascular: S1/S2 wnl, no murmurs, rubs, or gallops Lungs: Bilateral decreased breath sounds, normal respiratory effort, no accessory muscle use Abdominal: Soft, non-tender, non-distended, no guarding, rebound, or rigidity Skin: Warm, dry Extremities: No edema or contractures Psychiatric: Alert and oriented to person only, appropriate affect Neuro: CN II-XII grossly intact, strength 4/5 throughout, sensation grossly intact throughout - Labs CBC & Chem 7: 11/29/18 07:37 11/29/18 07:37 Labs: Abnormal Lab Results - Last 24 Hours (Table) 11/28/18 11/28/18 11/28/18 Range/Units 18:36 18:36 18:36 RBC 3.24 L (3.80-5.40) m/uL Hgb 8.5 L (11.4-16.0) gm/dL Hct 28.5 L (34.0-46.0) % MCHC 29.9 L (31.0-37.0) g/dL RDW 19.5 H (11.5-15.5) % APTT 18.4 L (22.0-30.0) sec Sodium 136 L (137-145) mmol/L Potassium 3.4 L (3.5-5.1) mmol/L Glucose 70 L (74-99) mg/dL Calcium 8.3 L (8.4-10.2) mg/dL Total Protein 4.9 L (6.3-8.2) g/dL Albumin 2.4 L (3.5-5.0) g/dL Urine Appearance (Clear) Urine Protein (Negative) Urine Ketones (Negative) Ur Leukocyte Esterase (Negative) Urine RBC (0-5) /hpf Urine WBC (0-5) /hpf Urine WBC Clumps (None) /hpf Ur Squamous Epith Cells (0-4) /hpf Hyaline Casts (0-2) /lpf Urine Mucus (None) /hpf 11/28/18 11/29/18 11/29/18 Range/Units 22:00 07:37 07:37 RBC 3.25 L (3.80-5.40) m/uL Hgb 8.4 L (11.4-16.0) gm/dL Hct 28.5 L (34.0-46.0) % MCHC 29.3 L (31.0-37.0) g/dL RDW 19.7 H (11.5-15.5) % APTT (22.0-30.0) sec Sodium (137-145) mmol/L Potassium (3.5-5.1) mmol/L Glucose (74-99) mg/dL Calcium (8.4-10.2) mg/dL Total Protein 5.0 L (6.3-8.2) g/dL Albumin 2.4 L (3.5-5.0) g/dL Urine Appearance Cloudy H (Clear) Urine Protein 1+ H (Negative) Urine Ketones 3+ H (Negative) Ur Leukocyte Esterase Large H (Negative) Urine RBC 6 H (0-5) /hpf Urine WBC >182 H (0-5) /hpf Urine WBC Clumps Occasional H (None) /hpf Ur Squamous Epith Cells 9 H (0-4) /hpf Hyaline Casts 4 H (0-2) /lpf Urine Mucus Rare H (None) /hpf Microbiology - Last 24 Hours (Table) 11/28/18 22:00 Urine Culture - Preliminary Urine,Voided Assessment and Plan Plan: Acute COPD exacerbation -Pulmonary recommendations appreciated -C/w Duonebs and Symbicort Pneumonia -C/w Azithromycin and Ceftriaxone UTI -C/w Ceftriaxone -F/u urine cultures Protein malnutrition -Insert Molding Operator consult Chronic normocytic anemia -Previously performed iron studies inconclusive -B12 and Folate levels high -Likely due to disease burden -Monitor for now Chronic conditions: HLD, Hypothyroidism -Resume home medications DVT prophylaxis -Heparin subq Discussed with: Patient Anticipated discharge date: 12/01/[address]: Rehab Facility A total of 30 minutes was spent on the care of this complex patient more than 50% of the time was spent in counseling and care coordination.
[2018-11-29] MEDS ORDERED: NON-FORMULARY DRUG (Multivit With Calcium,Iron,Min [Women's Multivitamin] 1 TAB) PO SCH (17:00)
[2018-11-29] MEDS ORDERED: NON-FORMULARY DRUG (Glucosamine/Chondr Su A Sod [Osteo Bi-Flex Caplet] 1 TAB) PO SCH (17:00)
[2018-11-29] MEDS: HEPARIN SODIUM,PORCINE 5,000 UNIT/ML 1 ML VIAL SQ SCH (17:46)
[2018-11-29] MEDS: CHOLECALCIFEROL 1,000 UNIT TAB PO SCH (17:46)
[2018-11-29] MEDS: ASPIRIN 81 MG PO SCH (17:46)
[2018-11-29] MEDS: FOLIC ACID 1 MG TAB PO SCH (17:46)
[2018-11-29] MEDS: AZITHROMYCIN 500 MG TAB PO SCH (20:42)
[2018-11-29] MEDS: SODIUM CHLORIDE 0.9% 1,000 ML IV SCH (20:47)
[2018-11-30] MEDS: HEPARIN SODIUM,PORCINE 5,000 UNIT/ML 1 ML VIAL SQ SCH ×3 (00:49→17:16)
[2018-11-30] MEDS: PANTOPRAZOLE 40 MG TABLET PO SCH (05:01)
[2018-11-30] MEDS: LEVOTHYROXINE 100 MCG TAB PO SCH (05:01)
[2018-11-30] MEDS: FLUOROURACIL TOPICAL SCH ×2 (07:15→20:15)
[2018-11-30] MEDS ORDERED: ACETAMINOPHEN TAB 325 MG TAB PO PRN (07:18)
[2018-11-30] MEDS: ATORVASTATIN 20 MG TAB PO SCH (07:36)
[2018-11-30] MEDS: FERROUS SULFATE 325 MG TAB PO SCH ×2 (07:36→17:16)
[2018-11-30] MEDS: FLUoxetine HCL 20 MG CAP PO SCH (07:37)
[2018-11-30] MEDS: guaiFENesin 600 MG TABLET.ER PO SCH ×2 (07:37→20:14)
[2018-11-30] MEDS: IPRATROPIUM-ALBUTEROL 3 ML NEB INHALATION SCH ×4 (07:42→19:25)
[2018-11-30] MEDS: SYMBICORT 80-4.5 MCG INHALER INHALATION SCH ×2 (07:44→19:25)
[2018-11-30 10:59] VITALS: BMI 28.1
--- NOTE | 2018-11-30 14:55 | P.PN ---
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 she has been in rehab for last 2 days has increased cough congestion and purulent sputum production with those problems and x-ray was checked in the rehab showed pneumonia patient was sent over here for further evaluation x-ray performed in the emergency department showed right-sided prominent interstitial marking suggestive of patchy right-sided pneumonia, patient has been started on bronchodilator broad-spectrum antibiotics and continued on her home medications and admitted into the hospital feeling slightly better compared to last 2 days Objective - Vital Signs Vital signs: Vital Signs Temp 98.6 F 11/30/18 12:05 Pulse 72 11/30/18 12:05 Resp 16 11/30/18 12:05 BP 101/43 11/30/18 12:05 Pulse Ox 98 11/30/18 12:05 Intake & Output 11/29/18 11/30/18 11/30/18 18:59 06:59 18:59 Intake Total 100 125 Balance 100 125 Weight 74.389 kg Intake: Oral 100 125 Other: Voiding Method Bedpan Bedpan Bedpan # Voids 1 2 2 # Bowel Movements 1 0 1 - Exam - Constitutional General appearance: average body habitus, cooperative, disheveled - EENT Eyes: EOMI, PERRLA, normal appearance ENT: normal oropharynx Ears: bilateral: normal - Neck Carotids: bilateral: upstroke normal, bruit absent Thyroid: bilateral: normal size - Respiratory Respiratory: bilateral: diminished, negative: dullness, rales, rhonchi, wheezing, prolonged expiration - Cardiovascular Rhythm: regular Heart sounds: normal: S1, S2 - Gastrointestinal General gastrointestinal: decreased bowel sounds, soft - Neurologic Neurologic: CNII-XII intact - Musculoskeletal Musculoskeletal: gait normal, generalized weakness, strength equal bilaterally - Psychiatric Psychiatric: A&O x's 3, appropriate affect, intact judgment & insight - Labs CBC & Chem 7: 11/29/18 07:37 11/29/18 07:37 Labs: Microbiology - Last 24 Hours (Table) 11/28/18 22:00 Urine Culture - Preliminary Urine,Voided Group D Enterococcus 11/28/18 19:47 Blood Culture - Preliminary Blood No Growth after 24 hours Assessment and Plan Assessment: Right-sided patchy pneumonia Urinary tract infection due to enterococcus Acute COPD exacerbation Chronic anemia Hypokalemia Protein calorie malnourishment Plan: Will add ampicillin 1 g every 6 hourly IV Breathing treatments Antibiotics Improve nutrition Urine for culture and sensitivity Further recommendations pending plan of care as per response of the patient Time with Patient: Greater than 30
[2018-11-30] MEDS: FOLIC ACID 1 MG TAB PO SCH (17:16)
[2018-11-30] MEDS: ASPIRIN 81 MG PO SCH (17:16)
[2018-11-30] MEDS: CHOLECALCIFEROL 1,000 UNIT TAB PO SCH (17:16)
[2018-11-30] MEDS ORDERED: AMPICILLIN 1,000 MG in SODIUM CHLORIDE 0.9% 50 ML IVPB SCH (18:00)
[2018-11-30] MEDS: AZITHROMYCIN 500 MG TAB PO SCH (20:14)
[2018-11-30] MEDS: SODIUM CHLORIDE 0.9% 1,000 ML IV SCH (20:15)
--- NOTE | 2018-11-30 21:52 | P.PN ---
Subjective Progress Note Date: 11/30/18 (Delayed charting patient seen at 13:30) Principal diagnosis: Shortness of breath Patient is a 88-year-old female with a past medical history of hypothyroidism, COPD, and dyslipidemia who presented from her rehabilitation facility for shortness of breath. Patient was recently hospitalized here from 10/15- 10/24 for acute exacerbation of COPD. The ER she underwent an extensive evaluation. She was found have left basilar airspace disease. Initial laboratory analysis was consistent with her chronic anemia and mild hypokalemia. Initial urinalysis was dirty specimen. Initial vital signs were within normal limits. She was started on Rocephin and Zithromax. She was also started on bronchodilators. She was admitted for further monitoring. Pulmonary was consulted. They recommended continuing antibiotics and breathing treatments. Urine culture came back with enterococcus, however this is considered to be asymptomatic bacteriuria as patient had no urinary symptoms on admission. Would not recommend treatment for this. Patient seen and examined at bedside. She states her breathing is much better than admission. Her cough is also improving and is less productive. She denies any chest pain, nausea, vomiting, or constipation. Objective - Vital Signs Vital signs: Vital Signs Temp 98.6 F 11/30/18 12:05 Pulse 72 11/30/18 19:36 Resp 16 11/30/18 15:16 BP 101/43 11/30/18 12:05 Pulse Ox 98 11/30/18 12:05 Intake & Output 11/30/18 11/30/18 12/01/18 06:59 18:59 06:59 Intake Total 125 120 Balance 125 120 Weight 74.389 kg Intake: Oral 125 120 Other: Voiding Method Bedpan Bedpan # Voids 2 2 0 # Bowel Movements 0 1 0 - Exam General: non toxic, no distress, appears at stated age Derm: warm, dry Head: atraumatic, normocephalic, symmetric Eyes: EOMI, no lid lag, anicteric sclera Mouth: no lip lesion, mucus membranes moist Cardiovascular: S1S2 reg, no murmur, positive posterior tibial pulse bilateral, Lungs: Coarse breath sounds bilateral, no rhonchi, no rales , no accessory muscle use Abdominal: soft, nontender to palpation, no guarding, no appreciable organomegaly Ext: no gross muscle atrophy, trace, no contractures Neuro: CN II-XI grossly intact, no focal neuro deficits Psych: Alert, oriented, appropriate affect - Labs CBC & Chem 7: 11/29/18 07:37 11/29/18 07:37 Labs: Microbiology - Last 24 Hours (Table) 11/28/18 22:00 Urine Culture - Preliminary Urine,Voided Group D Enterococcus 11/28/18 19:47 Blood Culture - Preliminary Blood No Growth after 24 hours Assessment and Plan Assessment: Healthcare associated pneumonia, left sided associated with acute exacerbation of COPD -Continue with Zithromax and Rocephin as patient has had adequate improvement -Pulmonary recommendations appreciated -Follow chest x-ray to clear -Continue bronchodilators -No indication for steroids at this point in time as patient has had adequate improvement in her respiratory status without steroids -Pulmonary hygiene Asymptomatic bacteriuria -Would not treat at this point in time as patient has no symptoms Hypoalbuminemia -Dietary consultation -Supplementation Normocytic anemia -At baseline -Outpatient CBC Dyslipidemia -Statin Hypothyroidism -Synthroid DVT prophylaxis: Heparin Discussed with: Patient, nursing Anticipated discharge: In a.m. Anticipated discharge place: Return to rehab A total of 25 minutes was spent on the care of this complex patient more than 50% of the time was spent in counseling and care coordination.
[2018-12-01] MEDS: HEPARIN SODIUM,PORCINE 5,000 UNIT/ML 1 ML VIAL SQ SCH ×3 (00:38→16:34)
[2018-12-01] MEDS: PANTOPRAZOLE 40 MG TABLET PO SCH (06:05)
[2018-12-01] MEDS: LEVOTHYROXINE 100 MCG TAB PO SCH (06:05)
[2018-12-01] MEDS: guaiFENesin 600 MG TABLET.ER PO SCH ×2 (07:55→21:41)
[2018-12-01] MEDS: FERROUS SULFATE 325 MG TAB PO SCH ×2 (07:55→16:34)
[2018-12-01] MEDS: FLUoxetine HCL 20 MG CAP PO SCH (07:55)
[2018-12-01] MEDS: ATORVASTATIN 20 MG TAB PO SCH (07:55)
[2018-12-01] MEDS: FLUOROURACIL TOPICAL SCH ×2 (07:56→21:51)
[2018-12-01] MEDS: SYMBICORT 80-4.5 MCG INHALER INHALATION SCH ×2 (09:03→19:07)
[2018-12-01] MEDS: IPRATROPIUM-ALBUTEROL 3 ML NEB INHALATION SCH ×4 (09:03→19:07)
--- NOTE | 2018-12-01 09:49 | P.PN ---
Subjective Progress Note Date: 12/01/18 Principal diagnosis: Right-sided pneumonia, urinary tract infection, acute COPD exacerbation, chronic anemia, hypokalemia, protein calorie malnourishment 12/01/2018, patient seen eval reexamined at this time of time patient is being prepared for possible placement extended care facility labs reviewed 11/30/2018, patient seen eval reexamined during the rounds Breathing relatively more stable still of ongoing cough is present labs reviewed medications reviewed, urine cultures positive for group D enterococcus blood cultures have been negative, patient has no ALLERGIES to penicillin can be started on 1 g every 6 hourly 88-year-old female with 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 she has been in rehab for last 2 days has increased cough congestion and purulent sputum production with those problems and x-ray was checked in the rehab showed pneumonia patient was sent over here for further evaluation x-ray performed in the emergency department showed right-sided prominent interstitial marking suggestive of patchy right-sided pneumonia, patient has been started on bronchodilator broad-spectrum antibiotics and continued on her home medications and admitted into the hospital feeling slightly better compared to last 2 days Objective - Vital Signs Vital signs: Vital Signs Temp 98.2 F 12/01/18 07:53 Pulse 75 12/01/18 09:29 Resp 16 12/01/18 07:53 BP 123/74 12/01/18 07:53 Pulse Ox 99 12/01/18 07:53 Intake & Output 11/30/18 12/01/18 12/01/18 18:59 06:59 18:59 Intake Total 125 220 Balance 125 220 Weight 74.389 kg Intake: Oral 125 220 Other: Voiding Method Bedpan Bedpan # Voids 2 0 # Bowel Movements 1 0 - Exam - Constitutional General appearance: average body habitus, cooperative, disheveled - EENT Eyes: EOMI, PERRLA, normal appearance ENT: normal oropharynx Ears: bilateral: normal - Neck Carotids: bilateral: upstroke normal, bruit absent Thyroid: bilateral: normal size - Respiratory Respiratory: bilateral: diminished, negative: dullness, rales, rhonchi, wheezing, prolonged expiration - Cardiovascular Rhythm: regular Heart sounds: normal: S1, S2 - Gastrointestinal General gastrointestinal: decreased bowel sounds, soft - Neurologic Neurologic: CNII-XII intact - Musculoskeletal Musculoskeletal: gait normal, generalized weakness, strength equal bilaterally - Psychiatric Psychiatric: A&O x's 3, appropriate affect, intact judgment & insight - Labs CBC & Chem 7: 11/29/18 07:37 11/29/18 07:37 Labs: Microbiology - Last 24 Hours (Table) 11/28/18 19:47 Blood Culture - Preliminary Blood No Growth after 48 hours 11/28/18 22:00 Urine Culture - Preliminary Urine,Voided Group D Enterococcus Assessment and Plan Assessment: Right-sided patchy pneumonia Urinary tract infection due to enterococcus Acute COPD exacerbation Chronic anemia Hypokalemia Protein calorie malnourishment Plan: Consider ampicillin 1 g every 6 hourly IV for now then can be switched to by mouth at the time of discharge for 1 week to 10 days Breathing treatments Antibiotics Improve nutrition Urine for culture and sensitivity Further recommendations pending plan of care as per response of the patient Time with Patient: Greater than 30
--- NOTE | 2018-12-01 11:08 | P.PN ---
Subjective Progress Note Date: 12/01/18 Principal diagnosis: Patient still weak decreased by mouth intake patient is not a great historian Constitutional: No acute distress, Eyes: Anicteric sclerae, moist conjunctiva, no lid-lag PERRLA ENMT: NC/AT Oropharynx clear, no erythema, exudates Neck: Supple, FROM, no masses, or JVD No carotid bruits No thyromegaly Lungs: Crackly Cardiovascular: Heart regular in rate and rhythm, No murmurs, gallops, or rubs No peripheral edema Abdominal: Soft Nontender, no guarding, rebound or rigidity Abdomen moving with respiration Normoactive bowel sounds No hepatomegaly, No splenomegaly No palpable mass No abdominal wall hernia noted Skin: Normal temperature, tone, texture, turgor No induration No subcutaneous nodules No rash, lesions No ulcers Extremities: No digital cyanosis No clubbing Pedal pulses intact and symmetrical Radial pulses intact and symmetrical Normal gait and station No calf tenderness Psychiatric:Alert and oriented to person, place and time Appropriate affect Intact judgement Neuro: Generalized weakness s Healthcare associated pneumonia, left sided associated with acute exacerbation of COPD -Continue with Zithromax and Rocephin as patient has had adequate improvement -Pulmonary recommendations appreciated -Follow chest x-ray to clear -Continue bronchodilators - Asymptomatic bacteriuria -Would not treat at this point in time as patient has no symptoms Hypoalbuminemia -Dietary consultation -Supplementation Normocytic anemia -At baseline -Outpatient CBC Dyslipidemia -Statin Hypothyroidism -Synthroid Patient continues to have decreased by mouth intake and appears to be weak we will continue to monitor Generalized weakness No evidence of sepsis at this time but monitor closely Objective - Vital Signs Vital signs: Vital Signs Temp 98.2 F 12/01/18 07:53 Pulse 75 12/01/18 09:29 Resp 16 12/01/18 07:53 BP 123/74 12/01/18 07:53 Pulse Ox 99 12/01/18 07:53 Intake & Output 11/30/18 12/01/18 12/01/18 18:59 06:59 18:59 Intake Total 125 220 Balance 125 220 Weight 74.389 kg Intake: Oral 125 220 Other: Voiding Method Bedpan Bedpan Bedside Commode # Voids 2 0 # Bowel Movements 1 0 - Labs CBC & Chem 7: 11/29/18 07:37 11/29/18 07:37 Labs: Microbiology - Last 24 Hours (Table) 11/28/18 19:47 Blood Culture - Preliminary Blood No Growth after 48 hours 11/28/18 22:00 Urine Culture - Preliminary Urine,Voided Group D Enterococcus
[2018-12-01] MEDS: FOLIC ACID 1 MG TAB PO SCH (16:34)
[2018-12-01] MEDS: ASPIRIN 81 MG PO SCH (16:34)
[2018-12-01] MEDS: CHOLECALCIFEROL 1,000 UNIT TAB PO SCH (16:34)
[2018-12-01] MEDS: AZITHROMYCIN 500 MG TAB PO SCH (21:41)
[2018-12-01] MEDS: SODIUM CHLORIDE 0.9% 1,000 ML IV SCH (21:43)
[2018-12-02] MEDS: HEPARIN SODIUM,PORCINE 5,000 UNIT/ML 1 ML VIAL SQ SCH ×3 (01:18→17:23)
[2018-12-02] MEDS: LEVOTHYROXINE 100 MCG TAB PO SCH (05:35)
[2018-12-02] MEDS: PANTOPRAZOLE 40 MG TABLET PO SCH (05:35)
[2018-12-02] MEDS: IPRATROPIUM-ALBUTEROL 3 ML NEB INHALATION SCH ×4 (07:13→18:58)
[2018-12-02] MEDS: SYMBICORT 80-4.5 MCG INHALER INHALATION SCH ×2 (07:13→18:58)
[2018-12-02] MEDS: guaiFENesin 600 MG TABLET.ER PO SCH ×2 (08:03→21:14)
[2018-12-02] MEDS: FLUOROURACIL TOPICAL SCH ×2 (08:03→21:19)
[2018-12-02] MEDS: FERROUS SULFATE 325 MG TAB PO SCH ×2 (08:03→17:24)
[2018-12-02] MEDS: FLUoxetine HCL 20 MG CAP PO SCH (08:03)
[2018-12-02] MEDS: ATORVASTATIN 20 MG TAB PO SCH (08:03)
--- NOTE | 2018-12-02 10:47 | P.PN ---
Subjective Progress Note Date: 12/02/18 Patient still have episodes of confusion Still decreased by mouth intake Constitutional: No acute distress, conversant, pleasant Eyes: Anicteric sclerae, moist conjunctiva, no lid-lag PERRLA ENMT: NC/AT Oropharynx clear, no erythema, exudates Neck: Supple, FROM, no masses, or JVD No carotid bruits No thyromegaly Lungs: Crackly bilaterally Cardiovascular: Heart regular in rate and rhythm, No murmurs, gallops, or rubs No peripheral edema Abdominal: Soft Nontender, no guarding, rebound or rigidity Abdomen moving with respiration Normoactive bowel sounds No hepatomegaly, No splenomegaly No palpable mass No abdominal wall hernia noted Skin: Normal temperature, tone, texture, Extremities: No digital cyanosis No clubbing Pedal pulses intact and symmetrical Radial pulses intact and symmetrical Normal gait and station No calf tenderness Psychiatric:Alert Neuro: g weakness Healthcare associated pneumonia, left sided associated with acute exacerbation of COPD -Continue with Zithromax and Rocephin -Pulmonary recommendations appreciated -Follow chest x-ray to clear -Continue bronchodilators -Patient continued to have decreased by mouth intake Continue to monitor Asymptomatic bacteriuria -Would not treat at this point in time as patient has no symptoms Hypoalbuminemia -Dietary consultation -Supplementation Normocytic anemia -At baseline -Outpatient CBC Dyslipidemia -Statin Hypothyroidism -Synthroid Patient continues to be weak and decreased by mouth intake currently we'll c sixto to monitor the patient in the hospital patient can be discharged to the care home rehab once the by mouth intake improves and clinically improves Objective - Vital Signs Vital signs: Vital Signs Temp 97.9 F 12/02/18 06:24 Pulse 105 H 12/02/18 07:26 Resp 15 12/02/18 06:24 BP 121/69 12/02/18 06:24 Pulse Ox 100 12/02/18 07:13 Intake & Output 12/01/18 12/02/18 12/02/18 18:59 06:59 18:59 Intake Total 200 Output Total 2 Balance 198 Intake: Oral 200 Output: Urine 2 Other: Voiding Method Bedside Commode Bedside Commode Bedside Commode # Voids 2 1 # Bowel Movements 1 - Labs CBC & Chem 7: 11/29/18 07:37 11/29/18 07:37 Labs: Microbiology - Last 24 Hours (Table) 11/28/18 19:47 Blood Culture - Preliminary Blood No Growth after 72 hours 11/28/18 22:00 Urine Culture - Final Urine,Voided Enterococcus faecalis
[2018-12-02 11:12] LABS: Anisocytosis Slight; Basophils # (A) 0.1 k/uL (0-0.2); Basophils % (A) 1 %; Eosinophils # (A) 0.1 k/uL (0-0.7); Eosinophils % (A) 3 %; HCT 28.8 % (34.0-46.0); HGB 8.4 gm/dL (11.4-16.0); Hypochromasia Marked; Lymphocytes # (A) 1.1 k/uL (1.0-4.8); Lymphocytes % (A) 20 %; MCH 25.9 pg (25.0-35.0); MCHC 29.2 g/dL (31.0-37.0); MCV 88.7 fL (80.0-100.0); Monocytes # (A) 0.5 k/uL (0-1.0); Monocytes % (A) 9 %; Neutrophils # (A) 3.3 k/uL (1.3-7.7); Neutrophils % (A) 63 %; Platelet Count 306 k/uL (150-450); RBC 3.24 m/uL (3.80-5.40); RDW 19.3 % (11.5-15.5); WBC 5.3 k/uL (3.8-10.6)
[2018-12-02 11:26] LABS: Albumin 2.2 g/dL (3.5-5.0); Calcium 8.2 mg/dL (8.4-10.2); Potassium 3.9 mmol/L (3.5-5.1); Total Bilirubin 0.2 mg/dL (0.2-1.3); Total Protein 4.8 g/dL (6.3-8.2)
--- NOTE | 2018-12-02 15:05 | P.PN ---
Subjective Progress Note Date: 12/02/18 Principal diagnosis: Right-sided pneumonia, urinary tract infection, acute COPD exacerbation, chronic anemia, hypokalemia, protein calorie malnourishment 12/02/2018, he shouldn't seen evaluated examined during the rounds labs reviewed medications reviewed she is breathing better less cough and congestion is present, she remains on supplemental oxygen, family mentioned about pain on posterior part intermittently certain position they're concerned about a growth I've asked for the nurse to be accompanied for examination at this time nurses tight up with the dressing change of another patient I have deferred it to be examined later on per family has been consult and nurse has been consult about that 2 12/01/2018, patient seen eval reexamined at this time of time patient is being prepared for possible placement extended care facility labs reviewed 11/30/2018, patient seen eval reexamined during the rounds Breathing relatively more stable still of ongoing cough is present labs reviewed medications reviewed, urine cultures positive for group D enterococcus blood cultures have been negative, patient has no ALLERGIES to penicillin can be started on 1 g every 6 hourly 88-year-old female with 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 she has been in rehab for last 2 days has increased cough congestion and purulent sputum production with those problems and x-ray was checked in the rehab showed pneumonia patient was sent over here for further evaluation x-ray performed in the emergency department showed right-sided prominent interstitial marking suggestive of patchy right-sided pneumonia, patient has been started on bronchodilator broad-spectrum antibiotics and continued on her home medications and admitted into the hospital feeling slightly better compared to last 2 days Objective - Vital Signs Vital signs: Vital Signs Temp 97.9 F 12/02/18 06:24 Pulse 98 12/02/18 11:02 Resp 15 12/02/18 06:24 BP 121/69 12/02/18 06:24 Pulse Ox 100 12/02/18 07:13 Intake & Output 12/01/18 12/02/18 12/02/18 18:59 06:59 18:59 Intake Total 200 Output Total 2 Balance 198 Intake: Oral 200 Output: Urine 2 Other: Voiding Method Bedside Commode Bedside Commode Bedside Commode # Voids 2 1 # Bowel Movements 1 - Exam - Constitutional General appearance: average body habitus, cooperative, disheveled - EENT Eyes: EOMI, PERRLA, normal appearance ENT: normal oropharynx Ears: bilateral: normal - Neck Carotids: bilateral: upstroke normal, bruit absent Thyroid: bilateral: normal size - Respiratory Respiratory: bilateral: diminished, negative: dullness, rales, rhonchi, wheezing, prolonged expiration - Cardiovascular Rhythm: regular Heart sounds: normal: S1, S2 - Gastrointestinal General gastrointestinal: decreased bowel sounds, soft - Neurologic Neurologic: CNII-XII intact - Musculoskeletal Musculoskeletal: gait normal, generalized weakness, strength equal bilaterally - Psychiatric Psychiatric: A&O x's 3, appropriate affect, intact judgment & insight - Labs CBC & Chem 7: 12/02/18 10:30 12/02/18 10:30 Labs: Abnormal Lab Results - Last 24 Hours (Table) 12/02/18 12/02/18 Range/Units 10:30 10:30 RBC 3.24 L (3.80-5.40) m/uL Hgb 8.4 L (11.4-16.0) gm/dL Hct 28.8 L (34.0-46.0) % MCHC 29.2 L (31.0-37.0) g/dL RDW 19.3 H (11.5-15.5) % Sodium 136 L (137-145) mmol/L Calcium 8.2 L (8.4-10.2) mg/dL Total Protein 4.8 L (6.3-8.2) g/dL Albumin 2.2 L (3.5-5.0) g/dL Microbiology - Last 24 Hours (Table) 11/28/18 19:47 Blood Culture - Preliminary Blood No Growth after 72 hours 11/28/18 22:00 Urine Culture - Final Urine,Voided Enterococcus faecalis Assessment and Plan Assessment: Right-sided patchy pneumonia Urinary tract infection due to enterococcus Acute COPD exacerbation Chronic anemia Hypokalemia Protein calorie malnourishment Plan: Consider ampicillin 1 g every 6 hourly IV for now then can be switched to by mouth at the time of discharge for 1 week to 10 days Breathing treatments Antibiotics Improve nutrition Urine for culture and sensitivity Further recommendations pending plan of care as per response of the patient Time with Patient: Greater than 30
[2018-12-02] MEDS: FOLIC ACID 1 MG TAB PO SCH (17:24)
[2018-12-02] MEDS: CHOLECALCIFEROL 1,000 UNIT TAB PO SCH (17:24)
[2018-12-02] MEDS: ASPIRIN 81 MG PO SCH (17:24)
[2018-12-02] MEDS: AZITHROMYCIN 500 MG TAB PO SCH (21:14)
[2018-12-02] MEDS: SODIUM CHLORIDE 0.9% 1,000 ML IV SCH (22:17)
[2018-12-03] MEDS: HEPARIN SODIUM,PORCINE 5,000 UNIT/ML 1 ML VIAL SQ SCH ×4 (00:26→23:01)
[2018-12-03] MEDS: LEVOTHYROXINE 100 MCG TAB PO SCH (05:06)
[2018-12-03] MEDS: PANTOPRAZOLE 40 MG TABLET PO SCH (05:06)
[2018-12-03] MEDS: SYMBICORT 80-4.5 MCG INHALER INHALATION SCH ×2 (07:24→21:02)
[2018-12-03] MEDS: IPRATROPIUM-ALBUTEROL 3 ML NEB INHALATION SCH ×4 (07:24→20:59)
[2018-12-03] MEDS: guaiFENesin 600 MG TABLET.ER PO SCH ×2 (09:14→20:22)
[2018-12-03] MEDS: ATORVASTATIN 20 MG TAB PO SCH (09:14)
[2018-12-03] MEDS: FERROUS SULFATE 325 MG TAB PO SCH ×2 (09:14→17:28)
[2018-12-03] MEDS: FLUoxetine HCL 20 MG CAP PO SCH (09:14)
[2018-12-03] MEDS: FLUOROURACIL TOPICAL SCH ×2 (09:15→20:22)
[2018-12-03 10:00] LABS: Anisocytosis Slight; HCT 27.4 % (34.0-46.0); HGB 8.3 gm/dL (11.4-16.0); Hypochromasia Marked; MCH 26.6 pg (25.0-35.0); MCHC 30.1 g/dL (31.0-37.0); MCV 88.3 fL (80.0-100.0); Mean Platelet Volume 7.1; Platelet Count 296 k/uL (150-450); RBC 3.11 m/uL (3.80-5.40); RDW 19.1 % (11.5-15.5); WBC 5.5 k/uL (3.8-10.6)
[2018-12-03 10:21] LABS: ALT 16 U/L (9-52); AST 31 U/L (14-36); African American GFR (CKD) >90 (>60 ml/min/1.73 sqM); Albumin 2.3 g/dL (3.5-5.0); Alkaline Phosphatase 66 U/L (38-126); Anion Gap 8 mmol/L; Blood Urea Nitrogen 6 mg/dL (7-17); Calcium 8.5 mg/dL (8.4-10.2); Carbon Dioxide 28 mmol/L (22-30); Chloride 101 mmol/L (98-107); Glucose 81 mg/dL (74-99); Potassium 3.7 mmol/L (3.5-5.1); Sodium 137 mmol/L (137-145); Total Bilirubin 0.3 mg/dL (0.2-1.3); Total Protein 4.9 g/dL (6.3-8.2)
--- NOTE | 2018-12-03 11:42 | XR ---
EXAMINATION TYPE: XR chest 2V DATE OF EXAM: 12/03/2018 COMPARISON: 11/29/2018 HISTORY: Shortness of breath TECHNIQUE: Frontal and lateral views of the chest are obtained. FINDINGS: There is chronic right hemidiaphragm elevation. There is improved aeration of the retrocar diac airspace in comparison to the prior however there does remain a vague patchy area of hypoattenua tion at the lung bases and trace left pleural effusion. Cardiomediastinal silhouette is upper limits of normal size and shifted to the left secondary to right hemiabdomen elevation. Interstitial edema h as improved. Right pleural effusion has resolved. Diffuse osseous demineralization is noted. No sizab le pneumothorax. IMPRESSION: Improved interstitial pulmonary edema and left basilar consolidation with small left bas ilar consolidation remaining and trace left pleural effusion.
--- NOTE | 2018-12-03 14:53 | P.PN ---
Subjective Progress Note Date: 12/03/18 Principal diagnosis: Right-sided pneumonia, urinary tract infection, acute COPD exacerbation, chronic anemia, hypokalemia, protein calorie malnourishment 12/03/2018, patient seen eval reexamined during the rounds doing overall well denies any chest pain chest x-ray performed today revealed improvement decision and edema and left lower lobe pneumonia and small effusion is still present, and labs reviewed hemoglobin remained stable 8.3, with stable renal function and WBC count, remains on 3 L nasal cannula 12/02/2018, he shouldn't seen evaluated examined during the rounds labs reviewed medications reviewed she is breathing better less cough and congestion is present, she remains on supplemental oxygen, family mentioned about pain on posterior part intermittently certain position they're concerned about a growth I've asked for the nurse to be accompanied for examination at this time nurses tight up with the dressing change of another patient I have deferred it to be e xamined later on per family has been consult and nurse has been consult about that 2 12/01/2018, patient seen eval reexamined at this time of time patient is being prepared for possible placement extended care facility labs reviewed 11/30/2018, patient seen eval reexamined during the rounds Breathing relatively more stable still of ongoing cough is present labs reviewed medications reviewed, urine cultures positive for group D enterococcus blood cultures have been negative, patient has no ALLERGIES to penicillin can be started on 1 g every 6 hourly 88-year-old female with 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 she has been in rehab for last 2 days has increased cough congestion and purulent sputum production with those problems and x-ray was checked in the rehab showed pneumonia patient was sent over here for further evaluation x-ray performed in the emergency department showed right-sided prominent interstitial marking suggestive of patchy right-sided pneumonia, patient has been started on bronchodilator broad-spectrum antibiotics and continued on her home medications and admitted into the hospital feeling slightly better compared to last 2 days Objective - Vital Signs Vital signs: Vital Signs Temp 97.3 F L 12/03/18 06:00 Pulse 96 12/03/18 10:59 Resp 20 12/03/18 06:00 BP 106/61 12/03/18 06:00 Pulse Ox 98 12/03/18 06:00 Intake & Output 12/02/18 12/03/18 12/03/18 18:59 06:59 18:59 Intake Total 250 200 Output Total 2 Balance 250 198 Weight 74.389 kg Intake: Oral 250 200 Output: Urine 2 Other: Voiding Method Bedside Commode Bedside Commode Bedside Commode # Voids 1 2 # Bowel Movements 1 - Exam - Constitutional General appearance: average body habitus, cooperative, disheveled - EENT Eyes: EOMI, PERRLA, normal appearance ENT: normal oropharynx Ears: bilateral: normal - Neck Carotids: bilateral: upstroke normal, bruit absent Thyroid: bilateral: normal size - Respiratory Respiratory: bilateral: diminished, negative: dullness, rales, rhonchi, wheezi ng, prolonged expiration - Cardiovascular Rhythm: regular Heart sounds: normal: S1, S2 - Gastrointestinal General gastrointestinal: decreased bowel sounds, soft - Neurologic Neurologic: CNII-XII intact - Musculoskeletal Musculoskeletal: gait normal, generalized weakness, strength equal bilaterally - Psychiatric Psychiatric: A&O x's 3, appropriate affect, intact judgment & insight - Labs CBC & Chem 7: 12/03/18 09:00 12/03/18 09:00 Labs: Abnormal Lab Results - Last 24 Hours (Table) 12/03/18 12/03/18 Range/Units 09:00 09:00 RBC 3.11 L (3.80-5.40) m/uL Hgb 8.3 L (11.4-16.0) gm/dL Hct 27.4 L (34.0-46.0) % MCHC 30.1 L (31.0-37.0) g/dL RDW 19.1 H (11.5-15.5) % BUN 6 L (7-17) mg/dL Total Protein 4.9 L (6.3-8.2) g/dL Albumin 2.3 L (3.5-5.0) g/dL Microbiology - Last 24 Hours (Table) 11/28/18 19:47 Blood Culture - Preliminary Blood No Growth after 96 hours Assessment and Plan Assessment: Left patchy pneumonia Small left-sided pleural effusion Urinary tract infection due to enterococcus Acute COPD exacerbation Chronic anemia Hypokalemia Protein calorie malnourishment Plan: Breathing treatments Antibiotics Improve nutrition Repeat Urine for culture and sensitivity Further recommendations pending plan of care as per response of the patient
--- NOTE | 2018-12-03 16:46 | P.PN ---
Subjective Progress Note Date: 12/03/18 Patient seen and examined at bedside, has not had her breakfast yet. Reports that she's been up and ambulatory. Objective - Vital Signs Vital signs: Vital Signs Temp 97.4 F L 12/03/18 14:34 Pulse 92 12/03/18 15:47 Resp 16 12/03/18 14:34 BP 114/56 12/03/18 14:34 Pulse Ox 99 12/03/18 14:34 Intake & Output 12/02/18 12/03/18 12/03/18 18:59 06:59 18:59 Intake Total 250 200 160 Output Total 2 Balance 250 198 160 Weight 74.389 kg Intake: Intake, IV Titration 160 Amount Sodium Chloride 0.9% 1, 160 000 ml @ 20 mls/hr IV . Q24H [facility] Rx#:[id number] Oral 250 200 Output: Urine 2 Other: Voiding Method Bedside Commode Bedside Commode Bedside Commode # Voids 1 2 # Bowel Movements 1 - Exam Constitutional: No acute distress, conversant, pleasant Eyes: Anicteric sclerae, moist conjunctiva, no lid-lag, PERRLA ENMT: NC/AT,Oropharynx clear, no erythema, exudates Neck:Supple, FROM, no masses, or JVD, No carotid bruits; No thyromegaly Lungs: Diminished in the bases bilaterally, but clear to auscultation currently on 2-3 L with good oxygen saturations respirations unlabored Cardiovascular: Heart regular in rate and rhythm, No murmurs, gallops, or rubs no peripheral edema Abdominal: Soft Nontender, nom distended, no guarding, no rebound or rigidity, Normoactive bowel sounds No hepatomegaly, No splenomegaly, No palpable mass No abdominal wall hernia noted Skin: Normal temperature, tone, texture, turgor, No induration No subcutaneous nodules, No rash, lesions, No ulcers Extremities:No digital cyanosis No clubbing, Pedal pulses intact and symmetrical Radial pulses intact and symmetrical Normal gait and station, No calf tenderness Psychiatric: Alert and oriented to person, place and time, Appropriate affect Intact judgement Neuro: Muscles Strength 5/5 in all 4 extremities, Sensation to light touch grossly present throughout, Cranial nerves II-XII grossly intact. No focal sensory deficits - Labs CBC & Chem 7: 12/03/18 09:00 12/03/18 09:00 Labs: Abnormal Lab Results - Last 24 Hours (Table) 12/03/18 12/03/18 Range/Units 09:00 09:00 RBC 3.11 L (3.80-5.40) m/uL Hgb 8.3 L (11.4-16.0) gm/dL Hct 27.4 L (34.0-46.0) % MCHC 30.1 L (31.0-37.0) g/dL RDW 19.1 H (11.5-15.5) % BUN 6 L (7-17) mg/dL Total Protein 4.9 L (6.3-8.2) g/dL Albumin 2.3 L (3.5-5.0) g/dL Microbiology - Last 24 Hours (Table) 11/28/18 19:47 Blood Culture - Preliminary Blood No Growth after 96 hours Assessment and Plan (1) Pneumonia Narrative/Plan: * Afebrile without leukocytosis * Repeat chest x-ray today showing improved pulmonary edema and left basilar consolidation with small left basilar effusion * Continue current antibiotic regimen with Rocephin and azithromycin * Appreciate pulmonary recommendations Current Visit: Yes Status: Acute Code(s): J18.9 - PNEUMONIA, UNSPECIFIED ORGANISM SNOMED Code(s): 334835996 (2) Enterococcus UTI Narrative/Plan: * Repeat urinalysis with culture ordered Current Visit: Yes Status: Acute Code(s): N39.0 - URINARY TRACT INFECTION, SITE NOT SPECIFIED; B95.2 - ENTEROCOCCUS THE CAUSE OF DISEASES CLASSIFIED ELSEWHERE SNOMED Code(s): 143066400693978 (3) Hypokalemia Narrative/Plan: * Noted to be chronic previously on potassium replacement at home * We'll replace one time today and continue maintenance dosing Current Visit: Yes Status: Acute Code(s): E87.6 - HYPOKALEMIA SNOMED Code(s): 41048897 (4) Anemia Narrative/Plan: * Likely chronic patient's hemoglobin holding stable * continue to monitor * Current Visit: Yes Status: Acute Code(s): D64.9 - ANEMIA, UNSPECIFIED SNOMED Code(s): 826147925 (5) Acute exacerbation of chronic obstructive airways disease Narrative/Plan: * Continue current management Current Visit: Yes Status: Resolved Code(s): J44.1 - CHRONIC OBSTRUCTIVE PULMONARY DISEASE W (ACUTE) EXACERBATION SNOMED Code(s): 720648848 Plan: * Patient doing much better anticipated discharge tomorrow unable to go today secondary to prior authorization
[2018-12-03] MEDS: FOLIC ACID 1 MG TAB PO SCH (17:28)
[2018-12-03] MEDS: CHOLECALCIFEROL 1,000 UNIT TAB PO SCH (17:28)
[2018-12-03] MEDS: ASPIRIN 81 MG PO SCH (17:28)
[2018-12-03 17:31] LABS: Appearance,Urine Clear (Clear); Bilirubin,Urine Negative (Negative); Blood,Urine Negative (Negative); Color,Urine Yellow; Glucose,Urine (UA) Negative (Negative); Ketones,Urine 2+ (Negative); Leukocyte Esterase,Urine Negative (Negative); Nitrite,Urine Negative (Negative); Protein,Urine Negative (Negative); Specific Gravity,Urine 1.011 (1.001-1.035); Urobilinogen,Urine <2.0 mg/dL (<2.0)
[2018-12-03] MEDS: AZITHROMYCIN 500 MG TAB PO SCH (20:22)
[2018-12-03] MEDS: SODIUM CHLORIDE 0.9% 1,000 ML IV SCH (20:22)
[2018-12-04] MEDS: PANTOPRAZOLE 40 MG TABLET PO SCH (05:14)
[2018-12-04] MEDS: LEVOTHYROXINE 100 MCG TAB PO SCH (05:14)
[2018-12-04 07:05] VITALS: BP 108/68; RESP 18; TEMP 98.4
[2018-12-04] MEDS: SYMBICORT 80-4.5 MCG INHALER INHALATION SCH (08:10)
[2018-12-04] MEDS: FLUOROURACIL TOPICAL SCH (08:17)
[2018-12-04] MEDS: guaiFENesin 600 MG TABLET.ER PO SCH (08:17)
[2018-12-04] MEDS: ATORVASTATIN 20 MG TAB PO SCH (08:17)
[2018-12-04] MEDS: HEPARIN SODIUM,PORCINE 5,000 UNIT/ML 1 ML VIAL SQ SCH (08:17)
[2018-12-04] MEDS: FERROUS SULFATE 325 MG TAB PO SCH (08:17)
[2018-12-04] MEDS: FLUoxetine HCL 20 MG CAP PO SCH (08:17)
[2018-12-04] MEDS: IPRATROPIUM-ALBUTEROL 3 ML NEB INHALATION SCH ×2 (09:10→12:58)
--- NOTE | 2018-12-04 09:35 | P.PN ---
Subjective Progress Note Date: 12/04/18 Principal diagnosis: Right-sided pneumonia, urinary tract infection, acute COPD exacerbation, chronic anemia, hypokalemia, protein calorie malnourishment 12/04/2018, patient seen eval examined during the rounds patient has been doing well with supplemental oxygen denies any chest pain or shortness of breath repeat urine has been done and results are pending patient likely will be discharged by primary service to extended care facility the urine culture to follow-up 12/03/2018, patient seen eval reexamined during the rounds doing overall well denies any chest pain chest x-ray performed today revealed improvement decision and edema and left lower lobe pneumonia and small effusion is still present, and labs reviewed hemoglobin remained stable 8.3, with stable renal function and WBC count, remains on 3 L nasal cannula 12/02/2018, he shouldn't seen evaluated examined during the rounds labs reviewed medications reviewed she is breathing better less cough and congestion is present, she remains on supplemental oxygen, family mentioned about pain on posterior part intermittently certain position they're concerned about a growth I've asked for the nurse to be accompanied for examination at this time nurses tight up with the dressing change of another patient I have deferred it to be examined later on per family has been consult and nurse has been consult about that 2 12/01/2018, patient seen eval reexamined at this time of time patient is being prepared for possible placement extended care facility labs reviewed 11/30/2018, patient seen eval reexamined during the rounds Breathing relatively more stable still of ongoing cough is present labs reviewed medications reviewed, urine cultures positive for group D enterococcus blood cultures have been negative, patient has no ALLERGIES to penicillin can be started on 1 g every 6 hourly 88-year-old female with 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 she has been in rehab for last 2 days has increased cough congestion and purulent sputum production with those problems and x-ray was checked in the rehab showed pneumonia patient was sent over here for further evaluation x-ray performed in the emergency department showed right-sided prominent interstitial marking suggestive of patchy right-sided pneumonia, patient has been started on bronchodilator broad-spectrum antibiotics and continued on her home medications and admitted into the hospital feeling slightly better compared to last 2 days Objective - Vital Signs Vital signs: Vital Signs Temp 98.4 F 12/04/18 07:00 Pulse 103 H 12/04/18 09:28 Resp 18 12/04/18 07:00 BP 108/68 12/04/18 07:00 Pulse Ox 98 12/04/18 07:00 Intake & Output 12/03/18 12/04/18 12/04/18 18:59 06:59 18:59 Intake Total 160 340 Balance 160 340 Weight 74.389 kg Intake: Intake, IV Titration 160 Amount Sodium Chloride 0.9% 1, 160 000 ml @ 20 mls/hr IV . Q24H [facility] Rx#:[id number] Oral 340 Other: Voiding Method Bedside Commode Bedside Commode Bedside Commode # Voids 1 - Exam - Constitutional General appearance: average body habitus, cooperative, disheveled - EENT Eyes: EOMI, PERRLA, normal appearance ENT: normal oropharynx Ears: bilateral: normal - Neck Carotids: bilateral: upstroke normal, bruit absent Thyroid: bilateral: normal size - Respiratory Respiratory: bilateral: diminished, negative: dullness, rales, rhonchi, wheezing, prolonged expiration - Cardiovascular Rhythm: regular Heart sounds: normal: S1, S2 - Gastrointestinal General gastrointestinal: decreased bowel sounds, soft - Neurologic Neurologic: CNII-XII intact - Musculoskeletal Musculoskeletal: gait normal, generalized weakness, strength equal bilaterally - Psychiatric Psychiatric: A&O x's 3, appropriate affect, intact judgment & insight - Labs CBC & Chem 7: 12/03/18 09:00 12/03/18 09:00 Labs: Abnormal Lab Results - Last 24 Hours (Table) 12/03/18 12/03/18 12/03/18 Range/Units 09:00 09:00 16:55 RBC 3.11 L (3.80-5.40) m/uL Hgb 8.3 L (11.4-16.0) gm/dL Hct 27.4 L (34.0-46.0) % MCHC 30.1 L (31.0-37.0) g/dL RDW 19.1 H (11.5-15.5) % BUN 6 L (7-17) mg/dL Total Protein 4.9 L (6.3-8.2) g/dL Albumin 2.3 L (3.5-5.0) g/dL Urine Ketones 2+ H (Negative) Microbiology - Last 24 Hours (Table) 11/28/18 19:47 Blood Culture - Preliminary Blood No Growth after 120 hours Assessment and Plan Assessment: Left patchy pneumonia Small left-sided pleural effusion Urinary tract infection due to enterococcus Acute COPD exacerbation Chronic anemia Hypokalemia Protein calorie malnourishment Plan: Breathing treatments Antibiotics Improve nutrition Repeat Urine for culture and sensitivity Further recommendations pending plan of care as per response of the patient
[2018-12-04 12:59] VITALS: PULSE 102
--- NOTE | 2018-12-04 13:38 | P.DS ---
Providers Date of admission: 11/28/18 21:08 Expected date of discharge: 12/04/18 Attending physician: Oziel Durbin MD Consults: 11/28/18 21:08 Consult Physician Routine Consulting Provider: Humza Harper Consult Reason/Comments: Pneumonia, COPD exacerbation Do you want consulting provider notified?: Yes Primary care physician: Neisha Mclaughlin MD - Discharge Diagnosis(es) (1) Pneumonia Current Visit: Yes Status: Acute (2) Enterococcus UTI Current Visit: Yes Status: Acute (3) Hypokalemia Current Visit: Yes Status: Acute (4) Anemia Current Visit: Yes Status: Acute (5) Acute exacerbation of chronic obstructive airways disease Current Visit: Yes Status: Resolved Hospital Course: The patient is a 88-year-old female that was admitted to [facility] after being transferred here from longterm with acute community- acquired pneumonia and hypokalemia was found to have an acute COPD exacerbation. The patient was started on empiric IV antibiotics with Rocephin and azithromycin, supportive therapy with breathing treatments, supplemental oxygen as needed. Chest x-ray confirmed a right-sided patchy healthcare associated pneumonia. The patient is especially well with improvement of her respiratory status hence no indication for steroids. The patient was also noted to have a abnormal urinalysis suggestive of UTI cultures grew enterococcus and repeat urinalysis was negative. The patient was noted to have hypokalemia and this was replaced and she was continued on her maintenance daily potassium replacement. The patient improved significantly and was subsequently ready for discharge back to longterm for rehab and was sent there in stable condition. This discharge process took approximately 35 minutes focused exam respiratory: Diminished in the bases clear to auscultation bilaterally good saturations on 2 L nasal cannula, respirations unlabored Patient Condition at Discharge: Good Plan - Discharge Summary New Discharge Prescriptions: New Azithromycin 250 mg PO DAILY 4 Days #3 tab Cefuroxime Axetil [Ceftin] 500 mg PO BID 3 Days #8 tab Continue Folic Acid 1 mg PO DAILY@1700 Simvastatin 40 mg PO DAILY@0800 Fluticasone/Salmeterol [Advair 250-50 Diskus] 1 puff INHALATION RT- BID@0800,1700 Cholecalciferol [Vitamin D3 (25 Mcg = 1000 Iu)] 1,000 unit PO DAILY@1700 Multivit with Calcium,Iron,Min [Women's Multivitamin] 1 tab PO DAILY@1700 Glucosamine/Chondr Bonilla A Sod [Osteo Bi-Flex Caplet] 1 tab PO DAILY@1700 Aspirin [Adult Low Dose Aspirin EC] 81 mg PO DAILY@170 Levothyroxine Sodium 100 mcg PO DAILY@0600 FLUoxetine HCL [PROzac] 20 mg PO DAILY@0800 Vit C/E/Zn/Coppr/Lutein/Zeaxan [Preservision Areds 2 Softgel] 1 cap PO BID@0800,170 guaiFENesin [Mucinex] 600 mg PO BID@0800,2099 Ipratropium-Albuterol Nebulize [Duoneb 0.5 mg-3 mg/3 ml Soln] 3 ml INHALATION RT-Q4H PRN PRN Reason: COPD Na Phos,M-B/Na Phos,Di-Ba [Fleet Adult] 133 ml RECTAL ONCE PRN PRN Reason: Constipation Bisacodyl [Dulcolax] 10 mg RECTAL DAILY PRN PRN Reason: Constipation Albuterol Nebulized [Ventolin Nebulized] 2.5 mg INHALATION RT-Q4H PRN PRN Reason: Shortness Of Breath Fluorouracil [Efudex] 1 applic TOPICAL BID@0800,2099 Ferrous Sulfate [Iron (65 MG Elemental)] 325 mg PO BID@0800,170 Omeprazole 40 mg PO DAILY@0600 Magnesium Hydroxide [Milk of Magnesia Concentrate] 7,200 mg PO DAILY PRN PRN Reason: Constipation Ipratropium-Albuterol Nebulize [Duoneb 0.5 mg-3 mg/3 ml Soln] 3 ml INHALATION RT-QID Discontinued Doxycycline Hyclate 100 mg PO ONCE Doxycycline Hyclate 100 mg PO BID@0800,2099 Discharge Medication List Aspirin [Adult Low Dose Aspirin EC] 81 mg PO DAILY@169910/15/18 [History] Cholecalciferol [Vitamin D3 (25 Mcg = 1000 Iu)] 1,000 unit PO DAILY@169910/15/18 [History] FLUoxetine HCL [PROzac] 20 mg PO DAILY@0810/15/18 [History] Fluticasone/Salmeterol [Advair 250-50 Diskus] 1 puff INHALATION RT-BID@0800,169910/15/18 [History] Folic Acid 1 mg PO DAILY@169910/15/18 [History] Glucosamine/Chondr Bonilla A Sod [Osteo Bi-Flex Caplet] 1 tab PO DAILY@169910/15/18 [History] Levothyroxine Sodium 100 mcg PO DAILY@59910/15/18 [History] Multivit with Calcium,Iron,Min [Women's Multivitamin] 1 tab PO DAILY@169910/15/18 [History] Simvastatin 40 mg PO DAILY@79910/15/18 [History] Vit C/E/Zn/Coppr/Lutein/Zeaxan [Preservision Areds 2 Softgel] 1 cap PO BID@0800,169910/15/18 [History] Albuterol Nebulized [Ventolin Nebulized] 2.5 mg INHALATION RT-Q4H PRN 11/28/18 [History] Bisacodyl [Dulcolax] 10 mg RECTAL DAILY PRN 11/28/18 [History] Ferrous Sulfate [Iron (65 MG Elemental)] 325 mg PO BID@0800,169911/28/18 [History] Fluorouracil [Efudex] 1 applic TOPICAL BID@799,209911/28/18 [History] Ipratropium-Albuterol Nebulize [Duoneb 0.5 mg-3 mg/3 ml Soln] 3 ml INHALATION RT-Q4H PRN 11/28/18 [History] Ipratropium-Albuterol Nebulize [Duoneb 0.5 mg-3 mg/3 ml Soln] 3 ml INHALATION RT-QID 11/28/18 [History] Magnesium Hydroxide [Milk of Magnesia Concentrate] 7,200 mg PO DAILY PRN 11/28/18 [History] Na Phos,M-B/Na Phos,Di-Ba [Fleet Adult] 133 ml RECTAL ONCE PRN 11/28/18 [History] Omeprazole 40 mg PO DAILY@59911/28/18 [History] guaiFENesin [Mucinex] 600 mg PO BID@08,209911/28/18 [History] Azithromycin 250 mg PO DAILY 4 Days #3 tab 12/04/18 [Rx] Cefuroxime Axetil [Ceftin] 500 mg PO BID 3 Days #8 tab 12/04/18 [Rx] Follow up Appointment(s)/Referral(s): Neisha Mclaughlin MD [Primary Care Provider] - 1-2 days (office is closed. please call office friday to set up appt.) Humza Harper MD [STAFF PHYSICIAN] - 12/15/18 9:30 am
== END 2018-12-04 14:17 | DRG 190 ==
LOC: EC 18:24 → 4MS4W 21:08
PROVIDERS: ADMIT Internal Medicine; ATTEND Internal Medicine
DX: J44.1 Chronic obstructive pulmonary disease with (acute) exacerbation (principal); J18.9 Pneumonia, unspecified organism; E44.0 Moderate protein-calorie malnutrition; N39.0 Urinary tract infection, site not specified; J44.0 Chronic obstructive pulmonary disease with (acute) lower respiratory infection; B95.2 Enterococcus as the cause of diseases classified elsewhere; D64.9 Anemia, unspecified; E03.9 Hypothyroidism, unspecified; E78.5 Hyperlipidemia, unspecified; E87.6 Hypokalemia; Y95 Nosocomial condition; Z79.82 Long term (current) use of aspirin; Z79.890 Hormone replacement therapy; Z79.899 Other long term (current) drug therapy; Z87.891 Personal history of nicotine dependence; Z85.828 Personal history of other malignant neoplasm of skin; Z88.6 Allergy status to analgesic agent
CPT/HCPCS: 36415; 71046; 80053; 81001; 81003; 82550; 83605; 83735; 83880; 84484; 85025; 85027; 85610; 85730; 87040; 87077; 87086; 87186; 93005; 94640; 94760; 96361; 96365; 96367; 99285